=== PATIENT | male | born 1940 | race Caucasian/White ===

== ENCOUNTER → 2016-08-06 | Outpatient (CLI) | payer OTHER ==
[~2016-08-06] MED LIST: ASPIRIN CHEWABL81 MG PO; ATORVASTATIN CA10 M1 PO; CARVEDILOL6.25 MG PO; COUMADIN5 M2 PO; FUROSEMIDE80 MG PO; KLOR-CON M2020 ME1 PO; LASIX80 MG IV; LEVEMIR FLEX100 U/ML SC; METOLAZONE5 MG PO; MIRALAX17 GM PO; PACERONE100 MG PO; PERCOCET 325 MG1 TA2 PO; VITAMIN D-32000 UNIT PO; WARFARIN SOD5 MG PO
[2016-08-06 10:35] LABS: BILIRUBIN NEGATIVE (NEGATIVE); BLOOD NEGATIVE (NEGATIVE); CLARITY CLEAR (CLEAR); COLOR YELLOW (YELLOW); GLUCOSE 1+ (NEGATIVE); KETONE NEGATIVE (NEGATIVE); LEUKO ESTERASE NEGATIVE (NEGATIVE); NITRITE NEGATIVE (NEGATIVE); PH 6.5 (5.0-9.0); PROTEIN TRACE (NEGATIVE)
[2016-08-06 10:43] LABS: ALBUMIN 3.5 gm/dl (3.1-4.5); BILIRUBIN, DIRECT 0.3 mg/dL (0.0-0.2); BILIRUBIN, TOTAL 1.1 mg/dl (0.2-1.0); FREE T4 0.96 ng/dl (0.76-1.46); POTASSIUM 3.9 mmol/L (3.5-5.1); TOTAL PROTEIN 7.3 gm/dL (6.4-8.2)
[2016-08-06 10:48] LABS: THYROID STIM HORMONE (HS) 2.67 uIU/ml (0.358-4.75)
[2016-08-06 10:49] LABS: EPITHELIAL CELLS 0-2; HYALINE CAST 0-2; WBC 0-2 wbc/hpf (0-5)
[2016-08-06 11:24] LABS: HEMOGLOBIN A1c 7.8 % (4.8-5.6)
== END | disposition home or self-care (01) ==
LOC: LAB 09:49
PROVIDERS: Internal Medicine
DX: E11.65 Type 2 diabetes mellitus with hyperglycemia (principal); E11.42 Type 2 diabetes mellitus with diabetic polyneuropathy; E03.9 Hypothyroidism, unspecified; E78.5 Hyperlipidemia, unspecified; E55.9 Vitamin D deficiency, unspecified

== ENCOUNTER 2017-03-15 06:29 | Emergency (ER) | payer OTHER ==
[~2017-03-15] VITALS: Ht 165.1 cm; Wt 106.6 kg
== END 2017-03-15 08:07 | disposition home or self-care (01) ==
LOC: ED 06:29
DX: S93.502A Unspecified sprain of left great toe, initial encounter (principal); I25.10 Atherosclerotic heart disease of native coronary artery without angina pectoris; I48.91 Unspecified atrial fibrillation; I13.0 Hypertensive heart and chronic kidney disease with heart failure and stage 1 through stage 4 chronic kidney disease, or unspecified chronic kidney disease; E11.22 Type 2 diabetes mellitus with diabetic chronic kidney disease; N18.9 Chronic kidney disease, unspecified; Z79.4 Long term (current) use of insulin; Z79.02 Long term (current) use of antithrombotics/antiplatelets; Z79.899 Other long term (current) drug therapy; Z79.82 Long term (current) use of aspirin; X58.XXXA Exposure to other specified factors, initial encounter; Y93.89 Activity, other specified; Y92.89 Other specified places as the place of occurrence of the external cause; Y99.8 Other external cause status

== ENCOUNTER 2017-07-25 04:11 | Emergency (ER) | payer OTHER ==
[~2017-07-25] VITALS: Ht 167.6 cm; Wt 108.0 kg
[2017-07-25 04:46] LABS: BASO % 0.4 % (0.0-1.0); EOS # 0.3 10*3/uL (0.0-0.4); EOS % 3.3 % (1.0-4.0); HEMATOCRIT 37.3 % (42.0-52.0); HEMOGLOBIN 11.4 g/dl (14.0-18.0); LYMPH # 1.8 10*3/uL (1.3-4.4); LYMPH % 21.5 % (27.0-41.0); MEAN CELL VOLUME 83.1 fl (80.0-94.0); MEAN CORPUSCULAR HGB 25.4 pg (27.0-31.0); MEAN CORPUSCULAR HGB CONC 30.6 g/dl (33.0-37.0); MONO % 11.2 % (3.0-9.0); NEUT # 5.4 10*3/uL (2.3-7.9); NEUT % 63.5 % (47.0-73.0); PLATELET COUNT AUTOMATED 144 10*3/uL (130-400); RED BLOOD COUNT 4.49 10*6/uL (4.50-5.90); WHITE BLOOD COUNT 8.5 10*3/uL (4.8-10.8)
[2017-07-25 04:56] LABS: ACT PARTIAL THROMBO TIME 31.8 SECONDS (20.8-31.5); INTERNATIONAL NORM RATIO 2.2 (2.0-3.5)
[2017-07-25 04:58] LABS: CREATININE 1.64 mg/dL (0.70-1.30); POTASSIUM 3.6 mmol/L (3.5-5.1)
== END 2017-07-25 05:56 | disposition home or self-care (01) ==
LOC: ED 04:11
PROVIDERS: Emergency Medicine Emergency Medical Services
DX: K06.8 Other specified disorders of gingiva and edentulous alveolar ridge (principal); Z79.01 Long term (current) use of anticoagulants; Z95.1 Presence of aortocoronary bypass graft; Z79.899 Other long term (current) drug therapy; Z79.82 Long term (current) use of aspirin; Z79.4 Long term (current) use of insulin; Z91.041 Radiographic dye allergy status

== ENCOUNTER 2018-05-19 10:11 | Inpatient (IN) | payer OTHER ==
[2018-05-19] VITALS (7 sets, daily range): BP systolic 123–161; BP diastolic 54–91
[~2018-05-19] VITALS: Ht 165.1 cm; Wt 107.1 kg
--- NOTE | ~2018-05-19 | EKG ---
[place], [place] ELECTROCARDIOGRAM REPORT NAME: PARISH BECKETT UNIT #: [id number] ROOM: 526 DOCTOR: SIA DRAFT REPORT BIRTHDATE: [birth year] [facility] Test Date: 2018-05-19 Test Time: 10:13:29 Pat Name: PARISH BECKETT Department: Room: 526 Gender: M Ground Equipment Mechanic: Le Pollack : 1940 Requested By: PATRICIO VERGARA Order Number: [id number] Reading MD: Bonita Barrera MD Measurements Intervals [place] Rate: 87 P: [place]: QRS: 10 QRSD: 124 T: -80 QT: 385 QTc: 463 Interpretive Statements Atrial fibrillation Ventricular premature complex Aberrant conduction of SV complex(es) Left bundle branch block No previous ECG available for comparison Electronically Signed On 05-20-2018 12:13:57 PST by Bonita Barrera MD CM:EKGRPT:ELECTROCARDIOGRAM REPORT [id number] PATRICIO STOVALL DRAFT REPORT PATRICIO VERGARA M.D.
--- NOTE | ~2018-05-19 | EKG ---
[place], [place] ELECTROCARDIOGRAM REPORT NAME: PARISH BECKETT UNIT #: [id number] ROOM: 526 DOCTOR: SIA DRAFT REPORT BIRTHDATE: [birth year] [facility] Test Date: 2018-05-20 Test Time: 00:13:30 Pat Name: PARISH BECKETT Department: Room: 526 1 Gender: M Die Set Up Worker: Chanda Rascon : 1940 Requested By: JOSIE CHAWLA Order Number: [id number] Reading MD: Bonita Barrera MD Measurements Intervals [place] Rate: 79 P: [place]: QRS: 7 QRSD: 125 T: 265 QT: 464 QTc: 533 Interpretive Statements Afib/flut and V-paced complexes No further rhythm analysis attempted due to paced rhythm Left bundle branch block Baseline wander in lead(s) V2,V3 Electronically Signed On 05-20-2018 12:18:20 PST by Bonita Barrera MD CM:EKGRPT:ELECTROCARDIOGRAM REPORT 0013 1218 JOSIE HENRY DRAFT REPORT JOSIE CHAWLA DO
--- NOTE | ~2018-05-19 | EKG ---
[place], [place] ELECTROCARDIOGRAM REPORT NAME: PARISH BECKETT UNIT #: [id number] ROOM: 526 DOCTOR: SIA DRAFT REPORT BIRTHDATE: [birth year] [facility] Test Date: 2018-05-19 Test Time: 13:33:43 Pat Name: PARISH BECKETT Department: Room: 526 Gender: M Java Developer Architect: Le Pollack : 1940 Requested By: PATRICIO VERGARA Order Number: [id number] Reading MD: Bonita Barrera MD Measurements Intervals [place] Rate: 83 P: [place]: QRS: 21 QRSD: 126 T: 269 QT: 410 QTc: 482 Interpretive Statements Afib/flut and V-paced complexes No further rhythm analysis attempted due to paced rhythm Left bundle branch block No previous ECG available for comparison Electronically Signed On 05-20-2018 12:14:55 PST by Bonita Barrera MD CM:EKGRPT:ELECTROCARDIOGRAM REPORT 1333 1214 PATRICIO STOVALL DRAFT REPORT PATRICIO VERGARA M.D.
--- NOTE | ~2018-05-19 | EKG ---
[place], [place] ELECTROCARDIOGRAM REPORT NAME: PARISH BECKETT UNIT #: [id number] ROOM: 526 DOCTOR: SIA DRAFT REPORT BIRTHDATE: [birth year] [facility] Test Date: 2018-05-19 Test Time: 16:13:38 Pat Name: PARISH BECKETT Department: Room: 526 Gender: M Tile Layer Supervisor: Le Pollack : 1940 Requested By: PATRICIO VERGARA Order Number: [id number] Reading MD: Bonita Barrera MD Measurements Intervals [place] Rate: 82 P: [place]: QRS: 6 QRSD: 129 T: 247 QT: 419 QTc: 490 Interpretive Statements Afib/flut and V-paced complexes No further rhythm analysis attempted due to paced rhythm Left bundle branch block No previous ECG available for comparison Electronically Signed On 05-20-2018 12:16:00 PST by Bonita Barrera MD CM:EKGRPT:ELECTROCARDIOGRAM REPORT 1613 1216 PATRICIO STOVALL DRAFT REPORT PATRICIO VERGARA M.D.
--- NOTE | ~2018-05-19 | PR ---
[place], [place] PROGRESS NOTE NAME: PARISH BECKETT [facility] #: [id number] UNIT #: [id number] ROOM: 526 DOCTOR: ROSA DIAL MD BIRTHDATE: [birth year] DOS: 05/21/2018 CARDIOLOGY PROGRESS NOTE SUBJECTIVE: The patient was seen in the Cardiology Department today, 05/21/2018, prior to his stress test. He is an 78-year-old man who has a history of atherosclerotic heart disease with previous bypass surgery. He does have a history of permanent atrial fibrillation and has an ICD in place. He was brought to the hospital on 05/19/2018 with worsening shortness of breath over the last several weeks. He was noted to have significant peripheral edema and could not recall if he had taken his loop diuretic (Bumex) for some time. On admission, his troponin level was elevated at 0.772 and has continued to be mildly elevated since then. He has not had any typical rise and fall pattern to suggest an acute myocardial infarction and it was felt that his troponin elevation was due to atrial fibrillation, hypoxemia, respiratory failure and renal insufficiency. He is improving and it was felt that he should undergo a stress test today in order to assess his myocardial perfusion to determine if further assessment is needed. The patient is known to the [facility] clerk funeral detail and typically follows there for his cardiac care. Today, he has been n.p.o. and does seem to be a bit confused by today's events. He does admit to some shortness of breath, but denies any current chest pain. PHYSICAL EXAMINATION: VITAL SIGNS: His pulse is 73 and regular. Blood pressure was 118/68. He is afebrile. NECK: Supple. He has no jugular distention. LUNGS: Respirations are unlabored at rest. HEART: Has a regular rhythm without murmur or gallop. ABDOMEN: Obese, but otherwise benign. EXTREMITIES: Showed 2-3+ edema to the knees. A chest x-ray done 2 days ago showed the presence of his ICD in his left upper chest. There was no focal infiltrate, edema or effusion seen. An echocardiogram done 05/20/2018 showed normal left ventricular size with paradoxic septal motion consistent with postoperative state. There was mild concentric left ventricular hypertrophy with normal left ventricular systolic function. Diastole could not be assessed because of mitral valve surgery. The prosthetic mitral valve was well seated. There was no mitral insufficiency and mitral valve area was estimated at 3.2 cm2. Right ventricular systolic pressures were normal at 28 mmHg. IMPRESSIONS: 1. Acute on chronic heart failure, most likely diastolic in origin. 2. Dyspnea. 3. Elevation in cardiac troponin. 4. Chronic warfarin therapy. 5. Permanent atrial fibrillation. [place], [place] PROGRESS NOTE [id number] UNIT #: [id number] ROOM: 526 DOCTOR: ROSA DIAL MD BIRTHDATE: [birth year] 6. Permanent ICD pacemaker in place. 7. Possible medicine noncompliance with diuresis therapy. PLAN: We will proceed with a pharmacologic stress test today in order to determine if he has significant ischemia as a cause for his elevated troponin. At this point, however, the pattern of troponin and his clinical course is much more consistent with demand ischemia due to his heart failure, diastolic dysfunction, hypoxemia, etc. We will proceed with a pharmacologic stress test and continue attempts to diurese the patient. I thank the hospitalist physicians for asking our advice regarding his care. ROSA DIAL MD CM:PNTRANS [id number] ROSA DIAL MD 05/22/18 0611 interface
[2018-05-19 10:26] LABS: BASO % 0.6 % (0.0-1.0); EOS # 0.2 10*3/uL (0.0-0.4); HEMATOCRIT 36.2 % (42.0-52.0); HEMOGLOBIN 10.7 g/dl (14.0-18.0); LYMPH # 1.4 10*3/uL (1.3-4.4); LYMPH % 19.6 % (27.0-41.0); MEAN CELL VOLUME 88.3 fl (80.0-94.0); MEAN CORPUSCULAR HGB 26.1 pg (27.0-31.0); MEAN CORPUSCULAR HGB CONC 29.6 g/dl (33.0-37.0); MEAN PLATELET VOLUME 10.6 fl (9.6-12.3); MONO # 0.6 10*3/uL (0.1-1.0); MONO % 8.6 % (3.0-9.0); NEUT # 4.7 10*3/uL (2.3-7.9); NEUT % 67.8 % (47.0-73.0); PLATELET COUNT AUTOMATED 178 10*3/uL (130-400); RED CELL DISTRI WIDTH 18.4 % (0-14.5)
[2018-05-19 10:44] LABS: ALBUMIN 3.5 gm/dl (3.1-4.5); CREATININE 1.66 mg/dL (0.70-1.30); POTASSIUM 4.4 mmol/L (3.5-5.1); TOTAL PROTEIN 7.6 gm/dL (6.4-8.2)
[2018-05-19 10:56] LABS: TROPONIN I 0.772 ng/ml (<0.045)
[2018-05-19 11:08] LABS: ACT PARTIAL THROMBO TIME 35.1 SECONDS (20.8-31.5); INTERNATIONAL NORM RATIO 2.6 (2.0-3.5)
[2018-05-19] MEDS ORDERED: BUMETANIDE2 MG PO (18:40)
[2018-05-19] MEDS ORDERED: FOLBIC TABLET1 EACH PO (18:40)
[2018-05-19] MEDS ORDERED: AMARYL2 MG PO (18:41)
[2018-05-19] MEDS ORDERED: TYLENOL325 M2 PO (18:42)
[2018-05-19] MEDS ORDERED: NOVOLIN 70100 UNIT/1 SQ (18:42)
[2018-05-19] MEDS ORDERED: LEXAPRO10 MG PO (18:45)
[2018-05-19] MEDS ORDERED: ALLOPURINOL100 MG PO (18:46)
[2018-05-20] VITALS: BP 126/76
[2018-05-20 06:45] LABS: BASO % 0.6 % (0.0-1.0); EOS # 0.3 10*3/uL (0.0-0.4); EOS % 3.9 % (1.0-4.0); HEMATOCRIT 35.3 % (42.0-52.0); HEMOGLOBIN 10.2 g/dl (14.0-18.0); LYMPH # 1.2 10*3/uL (1.3-4.4); LYMPH % 16.1 % (27.0-41.0); MEAN CORPUSCULAR HGB 25.4 pg (27.0-31.0); MEAN CORPUSCULAR HGB CONC 28.9 g/dl (33.0-37.0); MEAN PLATELET VOLUME 10.7 fl (9.6-12.3); MONO # 0.8 10*3/uL (0.1-1.0); MONO % 10.3 % (3.0-9.0); NEUT % 68.7 % (47.0-73.0); PLATELET COUNT AUTOMATED 172 10*3/uL (130-400); RED BLOOD COUNT 4.01 10*6/uL (4.50-5.90); RED CELL DISTRI WIDTH 18.6 % (0-14.5); WHITE BLOOD COUNT 7.3 10*3/uL (4.8-10.8)
[2018-05-20 07:07] LABS: ALBUMIN 3.4 gm/dl (3.1-4.5); CREATININE 1.57 mg/dL (0.70-1.30); PHOSPHOROUS 2.5 mg/dL (2.5-4.9); POTASSIUM 4.1 mmol/L (3.5-5.1); TOTAL PROTEIN 7.3 gm/dL (6.4-8.2)
[2018-05-20 07:09] LABS: INTERNATIONAL NORM RATIO 2.2 (2.0-3.5)
[2018-05-20 07:13] LABS: FREE T4 0.85 ng/dl (0.76-1.46); THYROID STIM HORMONE (HS) 2.19 uIU/ml (0.358-4.75)
[2018-05-20 07:38] LABS: VITAMIN D, 25-HYDROXY 33.1 ng/mL (30-100)
[2018-05-20 08:00] VITALS: BP 117/57
[2018-05-20 11:00] VITALS: BP 123/55
[2018-05-20 16:00] VITALS: BP 105/58
[2018-05-20 20:00] VITALS: BP 118/64
[2018-05-21] VITALS: BP 115/65
[2018-05-21 06:29] LABS: BASO % 0.5 % (0.0-1.0); EOS # 0.3 10*3/uL (0.0-0.4); EOS % 4.9 % (1.0-4.0); HEMATOCRIT 34.5 % (42.0-52.0); HEMOGLOBIN 10.3 g/dl (14.0-18.0); LYMPH # 1.4 10*3/uL (1.3-4.4); LYMPH % 25.7 % (27.0-41.0); MEAN CELL VOLUME 88.2 fl (80.0-94.0); MEAN CORPUSCULAR HGB 26.3 pg (27.0-31.0); MEAN CORPUSCULAR HGB CONC 29.9 g/dl (33.0-37.0); MEAN PLATELET VOLUME 10.1 fl (9.6-12.3); MONO # 0.7 10*3/uL (0.1-1.0); MONO % 12.8 % (3.0-9.0); NEUT # 3.1 10*3/uL (2.3-7.9); NEUT % 55.7 % (47.0-73.0); PLATELET COUNT AUTOMATED 150 10*3/uL (130-400); RED BLOOD COUNT 3.91 10*6/uL (4.50-5.90); RED CELL DISTRI WIDTH 18.7 % (0-14.5); WHITE BLOOD COUNT 5.5 10*3/uL (4.8-10.8)
[2018-05-21 06:47] LABS: CREATININE 1.7 mg/dL (0.70-1.30); POTASSIUM 3.8 mmol/L (3.5-5.1)
[2018-05-21 07:30] VITALS: BP 118/68
[2018-05-21 07:36] LABS: INTERNATIONAL NORM RATIO 2.2 (2.0-3.5)
[2018-05-21 08:25] VITALS: BP 112/58
[2018-05-21 12:04] VITALS: BP 118/68
[2018-05-21 16:00] VITALS: BP 111/64
[2018-05-21 20:00] VITALS: BP 97/53
[2018-05-22] VITALS: BP 93/54
[2018-05-22 06:46] LABS: BASO % 0.4 % (0.0-1.0); EOS # 0.3 10*3/uL (0.0-0.4); EOS % 4.1 % (1.0-4.0); HEMATOCRIT 34.9 % (42.0-52.0); HEMOGLOBIN 10.3 g/dl (14.0-18.0); LYMPH # 1.5 10*3/uL (1.3-4.4); LYMPH % 20.9 % (27.0-41.0); MEAN CELL VOLUME 87.7 fl (80.0-94.0); MEAN CORPUSCULAR HGB 25.9 pg (27.0-31.0); MEAN CORPUSCULAR HGB CONC 29.5 g/dl (33.0-37.0); MEAN PLATELET VOLUME 10.3 fl (9.6-12.3); MONO # 0.9 10*3/uL (0.1-1.0); MONO % 11.9 % (3.0-9.0); NEUT # 4.6 10*3/uL (2.3-7.9); NEUT % 62.4 % (47.0-73.0); PLATELET COUNT AUTOMATED 156 10*3/uL (130-400); RED BLOOD COUNT 3.98 10*6/uL (4.50-5.90); RED CELL DISTRI WIDTH 18.6 % (0-14.5); WHITE BLOOD COUNT 7.3 10*3/uL (4.8-10.8)
[2018-05-22 07:00] LABS: INTERNATIONAL NORM RATIO 2.3 (2.0-3.5)
[2018-05-22 07:11] LABS: CREATININE 1.59 mg/dL (0.70-1.30); POTASSIUM 3.7 mmol/L (3.5-5.1)
[2018-05-22 08:00] VITALS: BP 90/50
[2018-05-22 12:00] VITALS: BP 119/56
[2018-05-22 16:00] VITALS: BP 116/58
[2018-05-22] MEDS ORDERED: IMDUR SA30 MG PO (17:07)
[2018-05-22] MEDS ORDERED: APRESOLINE10 MG PO (17:07)
[2018-06-05] MEDS ORDERED: APRESOLINE10 MG PO (11:28)
[2018-06-07] MEDS ORDERED: NOVOLIN 70100 UNIT/1 SQ (10:16)
[2018-06-07] MEDS ORDERED: VITAMIN D-32000 UNI1 PO (10:16)
[2018-06-07] MEDS ORDERED: COREG12.5 M1 PO (10:16)
[2018-06-07] MEDS ORDERED: KLOR-CON M2020 ME1 PO (10:16)
[2018-06-07] MEDS ORDERED: APRESOLINE10 MG PO (10:16)
[2018-06-07] MEDS ORDERED: ATORVASTATIN CA10 M1 PO (10:16)
[2018-06-07] MEDS ORDERED: COUMADIN5 M2 PO (10:16)
[2018-06-07] MEDS ORDERED: IMDUR SA60 M1 PO (10:16)
[2018-06-07] MEDS ORDERED: BUMETANIDE2 MG PO (10:16)
== END 2018-05-22 18:03 | disposition home or self-care (01) | DRG 291 ==
LOC: ED 10:11 → 5E 16:19 → EDHOLD 16:19 → 5E 18:05
PROVIDERS: Emergency Medicine; Internal Medicine; Internal Medicine Nephrology; ADMIT Internal Medicine
DX: I13.0 Hypertensive heart and chronic kidney disease with heart failure and stage 1 through stage 4 chronic kidney disease, or unspecified chronic kidney disease (principal); I50.43 Acute on chronic combined systolic (congestive) and diastolic (congestive) heart failure; D68.69 Other thrombophilia; I47.2 Ventricular tachycardia; I24.8 Other forms of acute ischemic heart disease; Z68.41 Body mass index [BMI] 40.0-44.9, adult; E11.22 Type 2 diabetes mellitus with diabetic chronic kidney disease; E83.41 Hypermagnesemia; E80.6 Other disorders of bilirubin metabolism; D64.9 Anemia, unspecified; I25.10 Atherosclerotic heart disease of native coronary artery without angina pectoris; E11.65 Type 2 diabetes mellitus with hyperglycemia; I48.2 Chronic atrial fibrillation; N18.3 Chronic kidney disease, stage 3 (moderate); E66.9 Obesity, unspecified; Z79.4 Long term (current) use of insulin; Z95.1 Presence of aortocoronary bypass graft; Z91.041 Radiographic dye allergy status; Z79.899 Other long term (current) drug therapy; Z95.810 Presence of automatic (implantable) cardiac defibrillator; I25.2 Old myocardial infarction; Z79.82 Long term (current) use of aspirin; Z79.01 Long term (current) use of anticoagulants; Z95.2 Presence of prosthetic heart valve; Z91.14 Patient's other noncompliance with medication regimen; K21.9 Gastro-esophageal reflux disease without esophagitis

== ENCOUNTER → 2018-06-10 | Outpatient (CLI) | payer OTHER ==
[~2018-06-10] MED LIST changes: +ALLOPURINOL100 MG PO; +AMARYL2 MG PO; +APRESOLINE10 MG PO; +BUMETANIDE2 MG PO; +COREG12.5 M1 PO; +ELIQUIS2.5 M1 PO; +FOLBIC RF TABL1 EACH PO; +FOLBIC TABLET1 EACH PO; +IMDUR SA30 MG PO; +IMDUR SA60 M1 PO; +LEXAPRO10 MG PO; +NOVOLIN 70100 UNIT/1 SQ; +TYLENOL325 M2 PO; +VITAMIN D-32000 UNI1 PO
[2018-06-10 09:09] LABS: BASO % 0.3 % (0.0-1.0); EOS # 0.2 10*3/uL (0.0-0.4); EOS % 2.5 % (1.0-4.0); HEMATOCRIT 36.6 % (42.0-52.0); HEMOGLOBIN 10.7 g/dl (14.0-18.0); LYMPH # 1.4 10*3/uL (1.3-4.4); LYMPH % 20.6 % (27.0-41.0); MEAN CELL VOLUME 87.8 fl (80.0-94.0); MEAN CORPUSCULAR HGB 25.7 pg (27.0-31.0); MEAN CORPUSCULAR HGB CONC 29.2 g/dl (33.0-37.0); MEAN PLATELET VOLUME 10.3 fl (9.6-12.3); MONO # 0.9 10*3/uL (0.1-1.0); MONO % 12.9 % (3.0-9.0); NEUT # 4.3 10*3/uL (2.3-7.9); NEUT % 63.6 % (47.0-73.0); PLATELET COUNT AUTOMATED 130 10*3/uL (130-400); RED BLOOD COUNT 4.17 10*6/uL (4.50-5.90); RED CELL DISTRI WIDTH 17.7 % (0-14.5); WHITE BLOOD COUNT 6.7 10*3/uL (4.8-10.8)
[2018-06-10 09:18] LABS: INTERNATIONAL NORM RATIO 1.1 (2.0-3.5)
== END | disposition home or self-care (01) ==
LOC: LAB 08:49
PROVIDERS: Internal Medicine
DX: I50.43 Acute on chronic combined systolic (congestive) and diastolic (congestive) heart failure (principal); R79.1 Abnormal coagulation profile

== ENCOUNTER 2018-08-20 14:12 | Emergency (ER) | payer MEDICARE ==
[~2018-08-20] VITALS: Ht 167.6 cm; Wt 104.3 kg
[~2018-08-20 14:12] MED LIST changes: -ELIQUIS2.5 M1 PO; -FOLBIC RF TABL1 EACH PO
[2018-08-28] MEDS ORDERED: AMARYL2 MG PO (16:06)
[2018-08-28] MEDS ORDERED: ELIQUIS2.5 M1 PO (16:07)
[2018-08-28] MEDS ORDERED: APRESOLINE10 MG PO (16:07)
[2018-08-28] MEDS ORDERED: FOLBIC RF TABL1 EACH PO (16:08)
== END 2018-08-20 15:19 | disposition left against medical advice (07) ==
LOC: ED 14:12
DX: M54.6 Pain in thoracic spine (principal); Z91.041 Radiographic dye allergy status; Z79.899 Other long term (current) drug therapy; Z79.01 Long term (current) use of anticoagulants; Z79.82 Long term (current) use of aspirin; Z95.1 Presence of aortocoronary bypass graft; Z87.891 Personal history of nicotine dependence; W18.43XA Slipping, tripping and stumbling without falling due to stepping from one level to another, initial encounter; Y93.89 Activity, other specified; Y92.89 Other specified places as the place of occurrence of the external cause; Y99.8 Other external cause status

== ENCOUNTER 2018-10-03 13:25 | Inpatient (IN) | payer MEDICARE ==
[~2018-10-03] VITALS: Ht 167.6 cm; Wt 102.5 kg
--- NOTE | ~2018-10-03 | EKG ---
[place], [place] ELECTROCARDIOGRAM REPORT NAME: PARISH BECKETT UNIT #: [id number] ROOM: 515 DOCTOR: SIA DRAFT REPORT BIRTHDATE: [birth year] [facility] Test Date: 2018-10-03 Test Time: 13:57:25 Pat Name: PARISH BECKETT Department: Room: [facility] Gender: M Dining Room Host/Hostess: ZOE : 1940 Requested By: BRIONNA DAVIS Order Number: [id number] Reading MD: Fermin Zimmerman MD Measurements Intervals [place] Rate: 70 P: 0 PA: 59 QRS: -80 QRSD: 192 T: 93 QT: 483 QTc: 522 Interpretive Statements Ventricular-paced rhythm No further analysis attempted due to paced rhythm Compared to ECG 08/22/2018 09:41:58 No significant changes Electronically Signed On 10-06-2018 8:09:35 PDT by Fermin Zimmerman MD CM:EKGRPT:ELECTROCARDIOGRAM REPORT [id number] 0809 BRIONNA STOVALL DRAFT REPORT BRIONNA DAVIS MD
[~2018-10-03 13:25] MED LIST changes: +ELIQUIS2.5 M1 PO; +FOLBIC RF TABL1 EACH PO
[2018-10-03 13:26] VITALS: BP 134/69
[2018-10-03 14:33] LABS: BASO % 0.5 % (0.0-1.0); EOS # 0.2 10*3/uL (0.0-0.4); EOS % 3.2 % (1.0-4.0); HEMATOCRIT 36.7 % (42.0-52.0); HEMOGLOBIN 10.7 g/dl (14.0-18.0); LYMPH # 1.7 10*3/uL (1.3-4.4); LYMPH % 25.4 % (27.0-41.0); MEAN CELL VOLUME 83.2 fl (80.0-94.0); MEAN CORPUSCULAR HGB 24.3 pg (27.0-31.0); MEAN CORPUSCULAR HGB CONC 29.2 g/dl (33.0-37.0); MEAN PLATELET VOLUME 10.7 fl (9.6-12.3); MONO # 0.7 10*3/uL (0.1-1.0); MONO % 10.3 % (3.0-9.0); NEUT % 60.3 % (47.0-73.0); PLATELET COUNT AUTOMATED 127 10*3/uL (130-400); RED BLOOD COUNT 4.41 10*6/uL (4.50-5.90); RED CELL DISTRI WIDTH 18.6 % (0-14.5); WHITE BLOOD COUNT 6.6 10*3/uL (4.8-10.8)
[2018-10-03 14:45] LABS: ACT PARTIAL THROMBO TIME 27.2 SECONDS (20.0-32.1)
[2018-10-03 14:48] LABS: BILIRUBIN NEGATIVE (NEGATIVE); BLOOD NEGATIVE (NEGATIVE); CLARITY CLEAR (CLEAR); COLOR YELLOW (YELLOW); GLUCOSE 3+ (NEGATIVE); KETONE NEGATIVE (NEGATIVE); LEUKO ESTERASE NEGATIVE (NEGATIVE); NITRITE NEGATIVE (NEGATIVE); PH 6.5 (5.0-9.0); SPECIFIC GRAVITY <= 1.005 (1.005-1.030)
[2018-10-03 14:51] LABS: ALBUMIN 3.5 gm/dl (3.1-4.5); CREATININE 1.89 mg/dL (0.70-1.30); POTASSIUM 3.5 mmol/L (3.5-5.1); TOTAL PROTEIN 7.5 gm/dL (6.4-8.2)
[2018-10-03 14:59] LABS: TROPONIN I 0.397 ng/ml (<0.045)
[2018-10-03 15:05] VITALS: BP 143/79
[2018-10-03 15:10] LABS: EPITHELIAL CELLS 0-2; RBC 0-2 rbc/hpf (0-2)
[2018-10-03 15:54] VITALS: BP 138/82
== END 2018-10-03 17:25 | disposition home or self-care (01) | DRG 638 ==
LOC: ED 13:25 → EDHOLD 15:21 → 5E 15:27
PROVIDERS: Emergency Medicine; ADMIT Internal Medicine
DX: E11.65 Type 2 diabetes mellitus with hyperglycemia (principal); D68.69 Other thrombophilia; I13.0 Hypertensive heart and chronic kidney disease with heart failure and stage 1 through stage 4 chronic kidney disease, or unspecified chronic kidney disease; I50.40 Unspecified combined systolic (congestive) and diastolic (congestive) heart failure; E83.41 Hypermagnesemia; R74.8 Abnormal levels of other serum enzymes; E11.22 Type 2 diabetes mellitus with diabetic chronic kidney disease; N18.3 Chronic kidney disease, stage 3 (moderate); I48.2 Chronic atrial fibrillation; E66.9 Obesity, unspecified; I25.10 Atherosclerotic heart disease of native coronary artery without angina pectoris; Z95.810 Presence of automatic (implantable) cardiac defibrillator; Z79.4 Long term (current) use of insulin; Z79.01 Long term (current) use of anticoagulants; Z91.041 Radiographic dye allergy status; Z91.81 History of falling; I25.2 Old myocardial infarction; Z95.2 Presence of prosthetic heart valve; Z87.442 Personal history of urinary calculi; Z87.891 Personal history of nicotine dependence; Z95.1 Presence of aortocoronary bypass graft; Z84.89 Family history of other specified conditions; Z81.1 Family history of alcohol abuse and dependence; Z79.84 Long term (current) use of oral hypoglycemic drugs; Z68.36 Body mass index [BMI] 36.0-36.9, adult

== ENCOUNTER 2018-11-09 16:27 | Inpatient (IN) | payer MEDICARE ==
[~2018-11-09] VITALS: Ht 165.1 cm; Wt 103.9 kg
--- NOTE | ~2018-11-09 | EKG ---
[place], [place] ELECTROCARDIOGRAM REPORT NAME: PARISH BECKETT UNIT #: [id number] ROOM: 508 DOCTOR: SIA DRAFT REPORT BIRTHDATE: [birth year] [facility] Test Date: 2018-11-09 Test Time: 20:36:38 Pat Name: PARISH BECKETT Department: Room: 508 1 Gender: M Bone Plant Supervisor: : 1940 Requested By: SERINA FLEMING Order Number: [id number] Reading MD: Measurements Intervals [place] Rate: 99 P: 72 [place]: 167 QRS: 37 QRSD: 66 T: 41 QT: 348 QTc: 447 Interpretive Statements Sinus rhythm Baseline wander in lead(s) II Compared to ECG 10/03/2018 13:57:25 Ventricular-paced complex(es) or rhythm no longer present CM:EKGRPT:ELECTROCARDIOGRAM REPORT [id number] SERINA HENRY DRAFT REPORT SERINA FLEMING DO
--- NOTE | ~2018-11-09 | EKG ---
[place], [place] ELECTROCARDIOGRAM REPORT NAME: PARISH BECKETT UNIT #: [id number] ROOM: [facility] DOCTOR: SIA DRAFT REPORT BIRTHDATE: [birth year] [facility] Test Date: 2018-11-09 Test Time: 22:54:37 Pat Name: PARISH BECKETT Department: Room: [facility] Gender: M Licensed Occupational Therapist: Chanda Rascon : 1940 Requested By: SERINA FLEMING Order Number: [id number] Reading MD: Bonita Barrera MD Measurements Intervals [place] Rate: 70 P: 0 [place]: 62 QRS: -71 QRSD: 183 T: 82 QT: 501 QTc: 541 Interpretive Statements Atrial fibrillation, Ventricular-paced complexes No further analysis attempted due to paced rhythm Baseline wander in lead(s) V4 Compared to ECG 10/03/2018 13:57:25 No significant changes Electronically Signed On 11-10-2018 14:31:57 PDT by Bonita Barrera MD CM:EKGRPT:ELECTROCARDIOGRAM REPORT [id number] 1431 SERINA HENRY DRAFT REPORT
--- NOTE | ~2018-11-09 | EKG ---
[place], [place] ELECTROCARDIOGRAM REPORT NAME: PARISH BECKETT UNIT #: [id number] ROOM: [facility] DOCTOR: EPIPHANY DRAFT REPORT BIRTHDATE: [birth year] [facility] Test Date: 2018-11-09 Test Time: 16:43:34 Pat Name: PARISH BECKETT Department: Room: [facility] Gender: M Chairman Emeritus: : 1940 Requested By: GUSTAVO SCHWARTZ DNP Order Number: [id number] Reading MD: Bonita Barrera MD Measurements Intervals [place] Rate: 72 P: 0 NE: 55 QRS: 7 QRSD: 138 T: 254 QT: 409 QTc: 448 Interpretive Statements Ventricular-paced complexes No further analysis attempted due to paced rhythm Baseline wander in lead(s) V4,V6 Compared to ECG 10/03/2018 13:57:25 No significant changes Electronically Signed On 11-10-2018 14:29:27 PDT by Bonita Barrera MD CM:EKGRPT:ELECTROCARDIOGRAM REPORT 1643 1429 GUSTAVO SCHWARTZ DNP EPIPHANY DRAFT REPORT GUSTAVO SCHWARTZ DNP
--- NOTE | ~2018-11-09 | EKG ---
[place], [place] ELECTROCARDIOGRAM REPORT NAME: PARISH BECKETT UNIT #: [id number] ROOM: [facility] DOCTOR: SIA DRAFT REPORT BIRTHDATE: [birth year] [facility] Test Date: 2018-11-09 Test Time: 20:14:55 Pat Name: PARISH BECKETT Department: Room: [facility] Gender: M Escalator Constructor: Chanda Rascon : 1940 Requested By: SERINA FLEMING Order Number: [id number] Reading MD: Bonita Barrera MD Measurements Intervals [place] Rate: 75 P: [place]: QRS: 76 QRSD: 141 T: -85 QT: 540 QTc: 604 Interpretive Statements Afib/flut and V-paced complexes No further analysis attempted due to paced rhythm Baseline wander in lead(s) V1 Compared to ECG 10/03/2018 13:57:25 No significant changes Electronically Signed On 11-10-2018 14:29:59 PDT by Bonita Barrera MD CM:EKGRPT:ELECTROCARDIOGRAM REPORT 13 1429 SERINA HENRY DRAFT REPORT SERINA FLEMING DO
[2018-11-09 16:28] VITALS: BP 130/75
[2018-11-09 16:55] LABS: BASO % 0.1 % (0.0-1.0); HEMATOCRIT 35.5 % (42.0-52.0); HEMOGLOBIN 10.9 g/dl (14.0-18.0); LYMPH # 0.9 10*3/uL (1.3-4.4); LYMPH % 11.2 % (27.0-41.0); MEAN CORPUSCULAR HGB 25.2 pg (27.0-31.0); MEAN CORPUSCULAR HGB CONC 30.7 g/dl (33.0-37.0); MEAN PLATELET VOLUME 10.3 fl (9.6-12.3); MONO # 1.1 10*3/uL (0.1-1.0); MONO % 13.6 % (3.0-9.0); NEUT % 74.6 % (47.0-73.0); PLATELET COUNT AUTOMATED 108 10*3/uL (130-400); RED BLOOD COUNT 4.33 10*6/uL (4.50-5.90); RED CELL DISTRI WIDTH 18.3 % (0-14.5)
--- NOTE | 2018-11-09 16:58 | NUR ---
PT'S DAUGHTER CALLED FOR UPDATE ON PT. DAUGHTER STATES SHE CALLED PT TODAY AND PT TOLD HER HE FELL TWICE AND DID NOT FEEL WELL SO SHE CALLED AN AMBULANCE.
[2018-11-09 17:05] LABS: ACT PARTIAL THROMBO TIME 30.9 SECONDS (20.0-32.1); INTERNATIONAL NORM RATIO 1.1 (2.0-3.5)
[2018-11-09 17:07] LABS: BILIRUBIN NEGATIVE (NEGATIVE); BLOOD 3+ (NEGATIVE); CLARITY CLEAR (CLEAR); COLOR YELLOW (YELLOW); GLUCOSE 2+ (NEGATIVE); KETONE NEGATIVE (NEGATIVE); LEUKO ESTERASE NEGATIVE (NEGATIVE); NITRITE NEGATIVE (NEGATIVE)
[2018-11-09 17:14] LABS: ALBUMIN 3.1 gm/dl (3.1-4.5); CREATININE 1.98 mg/dL (0.70-1.30); POTASSIUM 3.2 mmol/L (3.5-5.1); TOTAL PROTEIN 7.3 gm/dL (6.4-8.2)
[2018-11-09 17:19] LABS: BACTERIA 1+; WBC 0-2 wbc/hpf (0-5)
[2018-11-09 17:23] LABS: TROPONIN I 1.11 ng/ml (<0.045)
--- NOTE | 2018-11-09 17:23 | NUR ---
DR GUSTAVO SCHWARTZ AWARE OF CRITICAL TROPONIN OF 1.11.
[2018-11-09 17:30] VITALS: BP 139/76
[2018-11-09 18:29] VITALS: BP 115/57
--- NOTE | 2018-11-09 18:29 | NUR ---
SON CALLED FOR UPDATE ON PT, SON IS OUT OF TOWN IN [place] AT THIS TIME.
--- NOTE | 2018-11-09 18:35 | NUR ---
DAUGHTER CALLED FROM [place] FOR UPDATE ON PATIENT.
--- NOTE | 2018-11-09 18:40 | NUR ---
A 78, admitted to 5E, under the services of ELLY Mcduffie DO with a diagnosis of MULTIPLE COMPLAINTS. Chief complaint is RECENT FALLS. Patient arrived via bed from ER. Monitor applied. Initial assessment completed. Vital signs taken and recorded. ELLY MCDUFFIE DO notified of admission to the unit. Orders received. See assessment for past medical history, medications and allergies. Patient oriented to unit. Clothing/patient valuable form completed. CRISTOPHER CRUZ
--- NOTE | 2018-11-09 19:49 | NUR ---
DR. FLEMING NOTIFIED OF PT'S MED REC UTD AND NEEDING A DIET ORDER.
[2018-11-09 20:00] VITALS: BP 108/64
--- NOTE | 2018-11-09 20:11 | NUR ---
MESSAGE LEFT W/ANSWERING SERVICE RE NEW CONSULT.
--- NOTE | 2018-11-09 21:09 | NUR ---
DR. FLEMING NOTIFIED OF PT'S 2ND TROPONIN OF 1.150 AND 2ND EKG NSR. PT ASYMPTOMATIC. NO NEW ORDERS AT THIS TIME.
--- NOTE | 2018-11-09 21:16 | NUR ---
MSG LEFT W/CARDIOLOGY ANSWERING SERVICE FOR RETURN CALL RE ELEVATED TROPONINS.
--- NOTE | 2018-11-09 21:19 | NUR ---
DR. RON RETURNED CALL AND NOTIFIED OF NEW CONSULT FOR ELEVATED TROPONINS. EKG, LABS, AND PT STATUS REVIEWED W/DR. NO NEW ORDERS RECEIVED AT THIS TIME.
--- NOTE | 2018-11-09 23:00 | NUR ---
PT LETHARGIC, DIFFICULT TO AROUSE, SKIN COOL/CLAMMY. HR 70 BP 92/50 T 97.4 ORALLY BGM 285. ORIENTED TO PERSON/PLACE, NOT TO TIME. WILL CONTINUE TO MONITOR.
--- NOTE | 2018-11-09 23:15 | NUR ---
DR. RON NOTIFIED OF PT'S CHANGE IN CONDITION. ORDERS GIVEN TO TX PT TO ICU AND ADMINISTER LASIX 20MG IVP X1 NOW.
[2018-11-09 23:30] VITALS: BP 92/50
--- NOTE | 2018-11-09 23:45 | NUR ---
PT TRANSFERRED TO ICU. REPORT GIVEN TO ANISHA ENG AT BEDSIDE. ALL BELONGINGS SENT W/PT.
[2018-11-10] VITALS: BP 107/63
--- NOTE | 2018-11-10 00:08 | NUR ---
RECEIVED PATIENT FROM 5E. PATIENT AWAKE AND ALERT UPON ARRIVAL. PLACED IN ICCU 5. NO S/S OF DISTRESS. RECEIVED REPORT FROM GAYE MURRIETA RN AT BEDSIDE. VITALS STABLE. PLACED ON POWER AND RECOVERY SHIFT ENGINEER. PACED 100% CAPTURE. AFEBRILE. PATIENT PLACED ON 2LNC. ASSESSMENT COMPLETED. CALL LIGHT PLACED WITHIN REACH. ORIENTED TO ROOM.
--- NOTE | 2018-11-10 00:56 | NUR ---
PATIENT RESTING COMFORTABLY IN HIS BED. DENIES DISCOMFORT. NO S/S OF DISTRESS. CALL LIGHT IN REACH.
[2018-11-10 03:54] VITALS: BP 114/60
--- NOTE | 2018-11-10 03:56 | NUR ---
CHANGED BED SHEETS/BLANKETS/GOWN.
[2018-11-10 05:53] LABS: CREATININE 2.11 mg/dL (0.70-1.30); PHOSPHOROUS 3.8 mg/dL (2.5-4.9); POTASSIUM 3.4 mmol/L (3.5-5.1)
[2018-11-10 06:00] LABS: FREE T4 0.9 ng/dl (0.76-1.46); THYROID STIM HORMONE (HS) 1.67 uIU/ml (0.358-4.75); TOTAL PROTEIN 6.9 gm/dL (6.4-8.2)
[2018-11-10 06:12] LABS: EOS % 0.5 % (1.0-4.0); HEMATOCRIT 36.1 % (42.0-52.0); HEMOGLOBIN 10.8 g/dl (14.0-18.0); LYMPH # 0.6 10*3/uL (1.3-4.4); LYMPH % 10.5 % (27.0-41.0); MEAN CORPUSCULAR HGB 25.1 pg (27.0-31.0); MEAN CORPUSCULAR HGB CONC 29.9 g/dl (33.0-37.0); MEAN PLATELET VOLUME 11.7 fl (9.6-12.3); MONO # 0.7 10*3/uL (0.1-1.0); MONO % 12.1 % (3.0-9.0); NEUT # 4.3 10*3/uL (2.3-7.9); NEUT % 76.5 % (47.0-73.0); PLATELET COUNT AUTOMATED 98 10*3/uL (130-400); RED CELL DISTRI WIDTH 18.6 % (0-14.5); WHITE BLOOD COUNT 5.6 10*3/uL (4.8-10.8)
[2018-11-10 06:37] LABS: ACT PARTIAL THROMBO TIME 33.7 SECONDS (20.0-32.1); INTERNATIONAL NORM RATIO 1.1 (2.0-3.5)
[2018-11-10 07:06] LABS: VITAMIN D, 25-HYDROXY 24.1 ng/mL (30-100)
--- NOTE | 2018-11-10 07:19 | NUR ---
24 HR chart check completed.
[2018-11-10 08:00] VITALS: BP 107/62
--- NOTE | 2018-11-10 09:00 | NUR ---
Potato Grader in to talk to patient. Patient states lives at home alone with his daughter living in [place] calling to check in on him. He has a son that lives near who also calls to check on him. There are 0 steps in the home. Physician: Dr. Praneeth Nunn Pharmacy: [facility] Home health services: none Patient's level of ADLs: INDEPENDENT Patient has working utilities: yes DME: none Follow-up physician's appointment after d/c: will be made by the hospitalist nurse director upon discharge Does patient want to access PORTAL?: no Discharge plan discussed with patient. He lives at home alone with his family calling in to check in on him. He is independent in his ADLs and ambulation. He drives. Discussed home health care services and he denies any home needs at this time. When medically stable he will be discharged to home. He is unsure of how he will get home at this time upon discharge. LUZMARIA MCCAIN
[2018-11-10 12:00] VITALS: BP 92/47
--- NOTE | 2018-11-10 15:59 | NUR ---
Nursing screen and occupational therapy referral received. Thank you. Diamond Luke OTr/L
[2018-11-10 16:00] VITALS: BP 91/49
--- NOTE | 2018-11-10 16:01 | NUR ---
PHYSICAL THERAPY Nursing screen received and chart reviewed. Physical therapy referral received. Thank you. Ana Cristina Ferreira,PT,DPT.
--- NOTE | 2018-11-10 19:13 | NUR ---
CHART CHECK COMPLETE.
[2018-11-10 20:00] VITALS: BP 97/57
--- NOTE | 2018-11-10 20:26 | NUR ---
MALE VISITOR AT BEDSIDE.
--- NOTE | 2018-11-10 23:40 | NUR ---
PT ALERT AND ORIENTED X 3 PRESENTLY. REMAINS IN CHAIR WITH CALL LIGHT IN HIS HAND.
[2018-11-11] VITALS: BP 111/52
[2018-11-11 04:00] VITALS: BP 99/45
--- NOTE | 2018-11-11 04:58 | NUR ---
BACK TO BED BY SELF. BED EXIT ALARM ON. PT HAD A PERIOD OF DISORIENTATION BUT CLEARED FAIRLY EASY.
[2018-11-11 05:20] LABS: CREATININE 1.77 mg/dL (0.70-1.30); POTASSIUM 3.5 mmol/L (3.5-5.1)
[2018-11-11 06:02] LABS: BASO % 0.2 % (0.0-1.0); EOS # 0.1 10*3/uL (0.0-0.4); EOS % 1.6 % (1.0-4.0); HEMATOCRIT 32.5 % (42.0-52.0); LYMPH # 0.9 10*3/uL (1.3-4.4); LYMPH % 15.5 % (27.0-41.0); MEAN CELL VOLUME 81.5 fl (80.0-94.0); MEAN CORPUSCULAR HGB 25.1 pg (27.0-31.0); MEAN CORPUSCULAR HGB CONC 30.8 g/dl (33.0-37.0); MEAN PLATELET VOLUME 11.6 fl (9.6-12.3); MONO # 0.6 10*3/uL (0.1-1.0); MONO % 11.1 % (3.0-9.0); NEUT # 4.1 10*3/uL (2.3-7.9); NEUT % 71.1 % (47.0-73.0); PLATELET COUNT AUTOMATED 98 10*3/uL (130-400); RED BLOOD COUNT 3.99 10*6/uL (4.50-5.90); RED CELL DISTRI WIDTH 18.2 % (0-14.5); WHITE BLOOD COUNT 5.8 10*3/uL (4.8-10.8)
--- NOTE | 2018-11-11 06:05 | NUR ---
BACK UP TO CHAIR. DOZING NOW.
[2018-11-11 08:00] VITALS: BP 128/66
--- NOTE | 2018-11-11 08:30 | NUR ---
SITTING UP IN CHAIR AT BEDSIDE. NO COMPLAINTS VOICED. CONFUSED TO YEAR. LUNGS CLEAR BILATERALLY. PULSE OX 95% ON ROOM AIR. 1+ EDEMA NOTED TO BILATERAL LOWER EXTREMITIES. USING URINAL
--- NOTE | 2018-11-11 10:59 | NUR ---
Occupational Therapy evaluation completed in ICCU with full eval to follow. Patient admitted to ICCU with elevated troponin and dyspnea with hyperglycemia. He has had frequent falls with LE edema and weakness. Precautions include fall risk, h/o falls,no device for mobility,LE edema,unsteady in standing, ICCU precautions, IV UE, moderate complexity level 16238 via chart review, testing and evaluation. Recommend OT per POC and SNF to enable return home at independent level. Thank you. Herlinda Luke OTR/L
--- NOTE | 2018-11-11 10:59 | NUR ---
PHYSICAL THERAPY Physical therapy evaluation complete, ICCU. Full evaluation/details to follow. Moderate complexity evaluation (83765) per chart review and evaluation. Patient presents with unsteady gait and decreased endurance. Continue per POC. Recommend SNF at discharge. Thank you. Ana Cristina Ferreira,PT,DPT.
--- NOTE | 2018-11-11 11:45 | NUR ---
REPORT GIVEN TO ARLENE LANCASTER. TRANSFERRED TO ROOM 509 VIA CHAIR.
[2018-11-11 12:00] VITALS: BP 114/64; BP 118/60
--- NOTE | 2018-11-11 12:50 | NUR ---
In to see patient with ALLAN Wilson. Discussed with patient about going to short term skilled. Stated his daughter that lives in [place] was recommending him to go. He stated, "well, if she recommends it then I will go for a little while". Patient said he lives in [place] and would be willing to go to [facility] for 7 days. Will make referral.
--- NOTE | 2018-11-11 13:00 | NUR ---
PT ARRIVED TO FLOOR VIA CHAIR. NO DISTRESS NOTED. NO VOICED C/O. WILL MONITOR
--- NOTE | 2018-11-11 13:40 | NUR ---
OT NOTE Attempted to see pt this P.M. for OT session and upon arrival pt was sitting upright in the recliner eating lunch. Will check back at a later time/date and continue with POC as indicated. MAGGY Wells/Michael
--- NOTE | 2018-11-11 14:40 | NUR ---
Faxed referral to [facility]. -CORY Vera
--- NOTE | 2018-11-11 15:00 | NUR ---
PT INSISTING THAT HE IS GOING HOME , DEMANDING TO HAVE HIS WALLET AND IV SITE REMOVED DR WAKEFIELD CALLED AND NOTIFIED DR WAKEFIELD UP TO SPEAK TO PT
--- NOTE | 2018-11-11 16:04 | NUR ---
PT SIGNED OUT AMA. DR WAKEFIELD AND NUSRAT ALAS NURSING MARINE ELECTRONICS TECHNICIAN NOTIFIED
--- NOTE | 2018-11-12 13:28 | NUR ---
OCCUPATIONAL THERAPY CO-SIGN I approve of the Occupational Therapy notes written above. JOEY DE JESUS OTR/Michael
== END 2018-11-11 16:04 | disposition left against medical advice (07) | DRG 871 ==
LOC: ED 16:27 → ICCU 18:17 → 5E 18:17 → EDHOLD 18:17 → 5E 18:26 → ICCU 23:44 → 5E 11-11 12:14
PROVIDERS: Internal Medicine; Nurse Practitioner Family; ADMIT Emergency Medicine
DX: A41.9 Sepsis, unspecified organism (principal); J18.9 Pneumonia, unspecified organism; J96.01 Acute respiratory failure with hypoxia; N17.0 Acute kidney failure with tubular necrosis; E87.1 Hypo-osmolality and hyponatremia; D68.69 Other thrombophilia; I13.0 Hypertensive heart and chronic kidney disease with heart failure and stage 1 through stage 4 chronic kidney disease, or unspecified chronic kidney disease; I25.810 Atherosclerosis of coronary artery bypass graft(s) without angina pectoris; I50.42 Chronic combined systolic (congestive) and diastolic (congestive) heart failure; R79.89 Other specified abnormal findings of blood chemistry; E66.9 Obesity, unspecified; E11.40 Type 2 diabetes mellitus with diabetic neuropathy, unspecified; R29.6 Repeated falls; E87.6 Hypokalemia; E11.22 Type 2 diabetes mellitus with diabetic chronic kidney disease; N18.3 Chronic kidney disease, stage 3 (moderate); E87.8 Other disorders of electrolyte and fluid balance, not elsewhere classified; D69.6 Thrombocytopenia, unspecified; Z53.21 Procedure and treatment not carried out due to patient leaving prior to being seen by health care provider; R79.82 Elevated C-reactive protein (CRP); I48.2 Chronic atrial fibrillation; R74.0 Nonspecific elevation of levels of transaminase and lactic acid dehydrogenase [LDH]; E11.65 Type 2 diabetes mellitus with hyperglycemia; D64.9 Anemia, unspecified; E83.41 Hypermagnesemia; W18.30XA Fall on same level, unspecified, initial encounter; Y93.89 Activity, other specified; Y92.89 Other specified places as the place of occurrence of the external cause; Y99.8 Other external cause status; Z95.810 Presence of automatic (implantable) cardiac defibrillator; Z79.4 Long term (current) use of insulin; Z95.2 Presence of prosthetic heart valve; I25.2 Old myocardial infarction; Z95.1 Presence of aortocoronary bypass graft; Z91.041 Radiographic dye allergy status; Z87.442 Personal history of urinary calculi; Z87.891 Personal history of nicotine dependence; Z81.1 Family history of alcohol abuse and dependence; Z84.89 Family history of other specified conditions; Z79.84 Long term (current) use of oral hypoglycemic drugs; Z68.37 Body mass index [BMI] 37.0-37.9, adult

== ENCOUNTER 2018-12-08 11:30 | Inpatient (IN) | payer MEDICARE ==
[~2018-12-08] VITALS: Ht 167.6 cm; Wt 102.1 kg
[2018-12-08 11:30] VITALS: BP 122/62
[2018-12-08 11:57] LABS: BASO % 0.3 % (0.0-1.0); EOS # 0.2 10*3/uL (0.0-0.4); EOS % 2.9 % (1.0-4.0); HEMATOCRIT 37.2 % (42.0-52.0); HEMOGLOBIN 11.3 g/dl (14.0-18.0); LYMPH # 1.9 10*3/uL (1.3-4.4); LYMPH % 29.1 % (27.0-41.0); MEAN CELL VOLUME 84.4 fl (80.0-94.0); MEAN CORPUSCULAR HGB 25.6 pg (27.0-31.0); MEAN CORPUSCULAR HGB CONC 30.4 g/dl (33.0-37.0); MONO # 0.7 10*3/uL (0.1-1.0); MONO % 10.6 % (3.0-9.0); NEUT # 3.7 10*3/uL (2.3-7.9); NEUT % 56.8 % (47.0-73.0); PLATELET COUNT AUTOMATED 115 10*3/uL (130-400); RED BLOOD COUNT 4.41 10*6/uL (4.50-5.90); RED CELL DISTRI WIDTH 17.2 % (0-14.5); WHITE BLOOD COUNT 6.6 10*3/uL (4.8-10.8)
--- NOTE | 2018-12-08 11:57 | NUR ---
PTS DAUGHTER CALLED TO CHECK ON PT. WAS INFORMED TESTING IS BEING DONE. AND PT IA AWAKE AND ALERT AT THIS TIME.
[2018-12-08 12:00] VITALS: BP 124/68
[2018-12-08 12:06] LABS: ACT PARTIAL THROMBO TIME 26.3 SECONDS (20.0-32.1)
[2018-12-08 12:13] LABS: ALBUMIN 3.7 gm/dl (3.1-4.5); CREATININE 1.96 mg/dL (0.70-1.30); TOTAL PROTEIN 7.5 gm/dL (6.4-8.2)
[2018-12-08 12:24] LABS: TROPONIN I 0.404 ng/ml (<0.045)
--- NOTE | 2018-12-08 12:24 | NUR ---
NOTIFIED BY LAB THAT PTS LACTIC ACID IS 2.5, AND TROPONIN 0.404. DR STANFORD NOTIFIED.
--- NOTE | 2018-12-08 12:38 | NUR ---
PT REQUESTING TO SEE NURSE. UPON ENTERING ROOM PT STATES I DONT KNOW WHY I AM HERE. INFORMED PT MIGUELITO CALLED EMS D/T PTS BGM BEING HIGH. REFUSING TO SIT IN BED STATES I AM NOT STAYING IN THIS BED I AM GOING TO SIT IN CHAIR NEXT TO BED. PT SITTING IN CHAIR AT BEDSIDE AT THIS TIME.
[2018-12-08 12:47] LABS: BILIRUBIN NEGATIVE (NEGATIVE); BLOOD NEGATIVE (NEGATIVE); CLARITY CLEAR (CLEAR); COLOR YELLOW (YELLOW); GLUCOSE 3+ (NEGATIVE); KETONE NEGATIVE (NEGATIVE); LEUKO ESTERASE NEGATIVE (NEGATIVE); NITRITE NEGATIVE (NEGATIVE); SPECIFIC GRAVITY <= 1.005 (1.005-1.030); UROBILINOGEN 0.2 E.U./dl (0.2-1.0)
[2018-12-08 13:26] LABS: BACTERIA TRACE; EPITHELIAL CELLS 0-2
[2018-12-08 14:00] VITALS: BP 118/62
--- NOTE | 2018-12-08 15:14 | NUR ---
NOTIFIED BY LAB PTS TROPONIN 0.415. DR STANFORD NOTIFIED.
[2018-12-08 15:25] VITALS: BP 150/90
--- NOTE | 2018-12-08 15:25 | NUR ---
A 78, admitted to 5E, under the services of MAME Villegas DO with a diagnosis of ARF,DEHYDRATION. Chief complaint is DIZZINESS AND HIGH BLOOD SUGAR THIS AM. Patient arrived via bed from ER. Monitor applied. Initial assessment completed. Vital signs taken and recorded. MAME VILLEGAS DO notified of admission to the unit. Orders received. See assessment for past medical history, medications and allergies. Patient and/or family oriented to unit. [address] visitation policy reviewed. Clothing/patient valuable form completed. JEFF CONTRERAS
[2018-12-08 16:00] VITALS: BP 150/93
--- NOTE | 2018-12-08 16:01 | NUR ---
DR. HUBBARD IN ROOM TO SEE PT.
[2018-12-08] MEDS ORDERED: LANTUS SOL100 UNIT/1 SQ (16:39)
[2018-12-08] MEDS ORDERED: LIPITOR10 MG PO (16:40)
--- NOTE | 2018-12-08 16:41 | NUR ---
CALLED DR. IZAGUIRRE MADE AWARE OF PT MEDICATIONS VERIFIED BY TERRELL.
--- NOTE | 2018-12-08 16:45 | NUR ---
SITTING UP IN RECLINER CHAIR. [id number], SEE EMAR. CALL LIGHT IN REACH. BODY ALARM ON.
--- NOTE | 2018-12-08 18:00 | NUR ---
SITTING UP IN RECLINER CHAIR. TOLERATING IV FLUIDS. CALL LIGHT IN REACH.
--- NOTE | 2018-12-08 18:56 | NUR ---
LEFT MESSAGE WITH ANSWERING SERVICE FOR [facility] FOR PALLIATIVE CARE CONSULT. THEY WILL HAVE HER CALL BACK.
--- NOTE | 2018-12-08 19:05 | NUR ---
[facility] FOR [facility]OSPICE FROM [facility] CALLED AND FAXING HER INFORMATION ON PT.
[2018-12-08 20:00] VITALS: BP 130/75
--- NOTE | 2018-12-08 20:00 | NUR ---
RESTING IN RECLINER WITH NO DISTRESS NOTED. AWAKE, FORGETFUL. RESPIRATIONS EASY. LUNGS DIMINISHED, CLEAR. PULSE OX 97% RA. BLE DISCOLORED WITH +2 EDEMA. IV FLUIDS INFUSING PER ORDER. CALL LIGHT WITHIN REACH. NO VOICED COMPLAINTS
--- NOTE | 2018-12-08 20:42 | NUR ---
24 HR chart check completed.
--- NOTE | 2018-12-08 23:00 | NUR ---
REMAINS IN RECLINER. NO DISTRESS NOTED. RESPIRATIONS EASY
[2018-12-09] VITALS: BP 112/60
--- NOTE | 2018-12-09 00:30 | NUR ---
SLEEPING. RESPIRATIONS EASY. VSS. IV FLUIDS MAINTAINED. CALL LIGHT WITHIN REACH
--- NOTE | 2018-12-09 03:00 | NUR ---
SLEEPING. IV FLUIDS MAINTAINED. CALL LIGHT WITHIN REACH
--- NOTE | 2018-12-09 06:00 | NUR ---
RESTED THROUGHOUT NIGHT WITH NO DISTRESS NOTED. RESPIRATIONS EASY. CALL LIGHT WITHIN REACH. NO VOICED COMPLAINTS THIS SHIFT
[2018-12-09 06:31] LABS: BASO % 0.5 % (0.0-1.0); EOS # 0.4 10*3/uL (0.0-0.4); EOS % 4.4 % (1.0-4.0); HEMATOCRIT 37.4 % (42.0-52.0); HEMOGLOBIN 11.3 g/dl (14.0-18.0); LYMPH # 2.3 10*3/uL (1.3-4.4); LYMPH % 27.7 % (27.0-41.0); MEAN CELL VOLUME 83.5 fl (80.0-94.0); MEAN CORPUSCULAR HGB 25.2 pg (27.0-31.0); MEAN CORPUSCULAR HGB CONC 30.2 g/dl (33.0-37.0); MEAN PLATELET VOLUME 10.8 fl (9.6-12.3); MONO # 0.9 10*3/uL (0.1-1.0); MONO % 10.9 % (3.0-9.0); NEUT # 4.6 10*3/uL (2.3-7.9); NEUT % 56.1 % (47.0-73.0); PLATELET COUNT AUTOMATED 116 10*3/uL (130-400); RED BLOOD COUNT 4.48 10*6/uL (4.50-5.90); RED CELL DISTRI WIDTH 17.2 % (0-14.5); WHITE BLOOD COUNT 8.2 10*3/uL (4.8-10.8)
[2018-12-09 06:50] LABS: CREATININE 1.43 mg/dL (0.70-1.30); PHOSPHOROUS 2.9 mg/dL (2.5-4.9); POTASSIUM 2.9 mmol/L (3.5-5.1)
--- NOTE | 2018-12-09 07:03 | NUR ---
Faxed palliative care order to [facility] and notified [place] palliative care nurse
--- NOTE | 2018-12-09 08:30 | NUR ---
PT SITTING UP IN RECLINER CHAIR. RESP-EASY AND REGULAR. CALL LIGHT IN REACH. SEE SHIFT ASSESSMENT.
--- NOTE | 2018-12-09 09:00 | NUR ---
Curtain Hemmer [employer] in to talk to patient. Patient states lives at home alone with his daughter living in [place] calling to check in on him. He has a son that lives near who also calls to check on him. There are 0 steps in the home. Physician: Dr. Praneeth Nunn Pharmacy: [facility] Home health services: none Patient's level of ADLs: INDEPENDENT Patient has working utilities: yes DME: none Follow-up physician's appointment after d/c: will be made by the hospitalist nurse director upon discharge Does patient want to access PORTAL?: no Discharge plan discussed with patient. He lives at home alone with his family calling in to check in on him. He is independent in his ADLs and ambulation. He drives. Discussed home health care services and he denies any home needs at this time. When medically stable he will be discharged to home. He is unsure of how he will get home at this time upon discharge. LUZMARIA MCCAIN
--- NOTE | 2018-12-09 09:00 | NUR ---
Nursing screen and Occupational Therapy referral received. Thank you. Diamond Luke OTR/L
--- NOTE | 2018-12-09 09:05 | NUR ---
PHYSICAL THERAPY Nursing screen received and chart reviewed. Physical therapy referral received. Thank you. Ana Cristina Ferreira,PT,DPT.
--- NOTE | 2018-12-09 09:14 | NUR ---
DR. HE CALLED MADE AWARE K LEVEL. HE WILL ORDER SOMETHING.
--- NOTE | 2018-12-09 09:50 | NUR ---
CALLED DR. HE MADE HIM AWARE PT IS VERY ANXIOUS AND WANTS TO LEAVE. THEY WILL BE MAKING ROUNDS. CALLED PT DAUGHTER AND SHE TRYING TO TALK WITH HIM ABOUT STAYING. CALL LIGHT IN REACH.
--- NOTE | 2018-12-09 10:00 | NUR ---
PT ANXIOUS WANTING TO LEAVE, WAITING FOR DOCTORS TO MAKE ROUNDS. AMBULATORY IN ROOM. CALL LIGHT IN REACH.
--- NOTE | 2018-12-09 10:43 | NUR ---
CORY reached out to patients daughter. CORY informed the daughter that the doctor feels it is unsafe for the patient to return home. CORY informed her the patient is not wanting to go to a SNF facility at this time. She wanted to know if we could get home health for the patient. She stated she does have a family member going into the patients home every few days to check on him and his medication. She stated previous attempts at home health have been declined by the patient. The daughter also stated that she just booked a plane ticket for her son to come up to this area on Dec 30 to take the patient back to [place] to be with them. CORY will talk to assistant case manager and the patient. -CORY Vera
--- NOTE | 2018-12-09 10:47 | NUR ---
DR. HUBBARD IN TO SEE PT.
--- NOTE | 2018-12-09 10:55 | NUR ---
PHYSICAL THERAPY Physical therapy evaluation complete, 5E. Full evaluation/details to follow. Low complexity evaluation (98538) per chart review and evaluation. PT to progress with gait, balance, and LE strength per POC. Recommend discharge home with home health PT/Nursing with 24 hour care and supervision for safety. Thank you. Ana Cristina Ferreira,PT,DPT.
--- NOTE | 2018-12-09 11:07 | NUR ---
Occupational therapy evaluation completed in full on floor 5 with complete eval to follow. Patient precautions include fall risk, unsteady functional mobility/transfers, and confusion. Per OT eval and POC, OTR recommending SNF with OT/PT to increase ADLs, cognition, functional mobility/transfers, and in room IADLs. If refused, rec home health OT/PT with / supervision. Thank you for the referral. Meaghan Carrion, OTR/L
--- NOTE | 2018-12-09 12:41 | NUR ---
Spoke to Ivania Syed from [facility]. She is waiting for the daughter to return her call. She states patient needs [facility].
[2018-12-09] MEDS ORDERED: BUMETANIDE1 MG PO (14:47)
--- NOTE | 2018-12-09 16:12 | NUR ---
Discharge instructions reviewed with patient/family. Patient receptive and verbalizes understanding. Follow-up care arranged. Written instructions given to patient/family. HEPLOCK REMOVED 2X2 APPLIED. SISTER IN LAW HER TO PICK PT UP. EXPLAINED MEDICATIONS TO SISTERIN LAW AND PATIENT. JEFF CONTRERAS
== END 2018-12-09 16:12 | disposition home or self-care (01) | DRG 682 ==
LOC: ED 11:30 → 5E 14:28 → EDHOLD 14:28 → 5E 14:45
PROVIDERS: Emergency Medicine; Student in an Organized Health Care Education/Training Program; ADMIT Internal Medicine
DX: N17.0 Acute kidney failure with tubular necrosis (principal); G93.41 Metabolic encephalopathy; I50.42 Chronic combined systolic (congestive) and diastolic (congestive) heart failure; D68.69 Other thrombophilia; I13.0 Hypertensive heart and chronic kidney disease with heart failure and stage 1 through stage 4 chronic kidney disease, or unspecified chronic kidney disease; E87.2 Acidosis; N17.9 Acute kidney failure, unspecified; E11.65 Type 2 diabetes mellitus with hyperglycemia; I25.10 Atherosclerotic heart disease of native coronary artery without angina pectoris; I48.2 Chronic atrial fibrillation; E11.22 Type 2 diabetes mellitus with diabetic chronic kidney disease; N18.3 Chronic kidney disease, stage 3 (moderate); D64.9 Anemia, unspecified; E87.6 Hypokalemia; R26.81 Unsteadiness on feet; E80.6 Other disorders of bilirubin metabolism; R74.0 Nonspecific elevation of levels of transaminase and lactic acid dehydrogenase [LDH]; R81 Glycosuria; Z95.1 Presence of aortocoronary bypass graft; E86.0 Dehydration; E66.9 Obesity, unspecified; Z95.810 Presence of automatic (implantable) cardiac defibrillator; Z79.01 Long term (current) use of anticoagulants; Z95.2 Presence of prosthetic heart valve; Z87.891 Personal history of nicotine dependence; Z81.1 Family history of alcohol abuse and dependence; Z84.89 Family history of other specified conditions; Z91.041 Radiographic dye allergy status; I25.2 Old myocardial infarction; Z79.899 Other long term (current) drug therapy; Z79.4 Long term (current) use of insulin; Z91.14 Patient's other noncompliance with medication regimen; Z68.36 Body mass index [BMI] 36.0-36.9, adult

== ENCOUNTER 2018-12-25 18:31 | Emergency (ER) | payer MEDICARE ==
[~2018-12-25] VITALS: Ht 167.6 cm; Wt 99.8 kg
[~2018-12-25 18:31] MED LIST changes: +BUMETANIDE1 MG PO; +LANTUS SOL100 UNIT/1 SQ; +LIPITOR10 MG PO
[2018-12-25 19:00] LABS: BASO % 0.4 % (0.0-1.0); EOS # 0.2 10*3/uL (0.0-0.4); EOS % 3.3 % (1.0-4.0); HEMATOCRIT 35.2 % (42.0-52.0); LYMPH % 28.9 % (27.0-41.0); MEAN CORPUSCULAR HGB 25.9 pg (27.0-31.0); MEAN CORPUSCULAR HGB CONC 31.3 g/dl (33.0-37.0); MEAN PLATELET VOLUME 10.2 fl (9.6-12.3); MONO % 14.2 % (3.0-9.0); NEUT # 3.7 10*3/uL (2.3-7.9); NEUT % 52.9 % (47.0-73.0); PLATELET COUNT AUTOMATED 122 10*3/uL (130-400); RED BLOOD COUNT 4.24 10*6/uL (4.50-5.90); RED CELL DISTRI WIDTH 16.6 % (0-14.5); WHITE BLOOD COUNT 6.9 10*3/uL (4.8-10.8)
[2018-12-25 19:12] LABS: ACT PARTIAL THROMBO TIME 26.2 SECONDS (20.0-32.1)
[2018-12-25 19:27] LABS: ALBUMIN 3.6 gm/dl (3.1-4.5); CREATININE 1.86 mg/dL (0.70-1.30); POTASSIUM 3.2 mmol/L (3.5-5.1); TOTAL PROTEIN 7.3 gm/dL (6.4-8.2)
[2018-12-25 19:29] LABS: TROPONIN I 0.351 ng/ml (<0.045)
== END 2018-12-25 21:34 | disposition left against medical advice (07) ==
LOC: ED 18:31
PROVIDERS: Internal Medicine
DX: R42 Dizziness and giddiness (principal); I25.10 Atherosclerotic heart disease of native coronary artery without angina pectoris; I48.2 Chronic atrial fibrillation; I13.0 Hypertensive heart and chronic kidney disease with heart failure and stage 1 through stage 4 chronic kidney disease, or unspecified chronic kidney disease; E11.22 Type 2 diabetes mellitus with diabetic chronic kidney disease; N18.3 Chronic kidney disease, stage 3 (moderate); I50.40 Unspecified combined systolic (congestive) and diastolic (congestive) heart failure; I25.2 Old myocardial infarction; E66.9 Obesity, unspecified; Z91.041 Radiographic dye allergy status; Z79.899 Other long term (current) drug therapy; Z79.4 Long term (current) use of insulin; Z87.891 Personal history of nicotine dependence; Z68.30 Body mass index [BMI] 30.0-30.9, adult

== ENCOUNTER 2019-01-06 11:25 | Emergency (ER) | payer MEDICARE ==
[~2019-01-06] VITALS: Ht 167.6 cm; Wt 99.8 kg
[2019-01-06 12:14] LABS: BASO % 0.3 % (0.0-1.0); EOS # 0.2 10*3/uL (0.0-0.4); EOS % 2.7 % (1.0-4.0); HEMATOCRIT 36.8 % (42.0-52.0); HEMOGLOBIN 11.5 g/dl (14.0-18.0); LYMPH # 1.7 10*3/uL (1.3-4.4); LYMPH % 26.9 % (27.0-41.0); MEAN CELL VOLUME 81.2 fl (80.0-94.0); MEAN CORPUSCULAR HGB 25.4 pg (27.0-31.0); MEAN CORPUSCULAR HGB CONC 31.3 g/dl (33.0-37.0); MONO # 0.9 10*3/uL (0.1-1.0); MONO % 14.2 % (3.0-9.0); NEUT # 3.6 10*3/uL (2.3-7.9); NEUT % 55.4 % (47.0-73.0); PLATELET COUNT AUTOMATED 134 10*3/uL (130-400); RED BLOOD COUNT 4.53 10*6/uL (4.50-5.90); WHITE BLOOD COUNT 6.4 10*3/uL (4.8-10.8)
[2019-01-06 12:31] LABS: ALBUMIN 3.9 gm/dl (3.1-4.5); CREATININE 1.7 mg/dL (0.70-1.30); POTASSIUM 3.5 mmol/L (3.5-5.1); TOTAL PROTEIN 7.9 gm/dL (6.4-8.2)
== END 2019-01-06 14:21 | disposition home or self-care (01) ==
LOC: ED 11:25
PROVIDERS: Nurse Practitioner Family
DX: R73.9 Hyperglycemia, unspecified (principal); Z87.891 Personal history of nicotine dependence; Z95.1 Presence of aortocoronary bypass graft; Z79.899 Other long term (current) drug therapy; Z79.4 Long term (current) use of insulin; Z91.041 Radiographic dye allergy status

== ENCOUNTER 2019-02-02 20:54 | Inpatient (IN) | payer MEDICARE ==
[~2019-02-02] VITALS: Ht 167.6 cm; Wt 101.7 kg
--- NOTE | ~2019-02-02 | CON ---
[place], [place] REPORT OF CONSULTATION NAME: PARISH BECKETT UNIT #: [id number] ROOM: 510 DOCTOR: KIMMY RON MD BIRTHDATE: [birth year] DOS: 02/03/2019 CARDIOLOGY CONSULT REASON FOR CONSULTATION: Chest pain. HISTORY OF PRESENT ILLNESS: The patient is an 78-year-old gentleman with history of coronary artery disease, bypass surgery, diabetes, dementia, was presented to the Emergency Room for hyperglycemia. In the Emergency Room, he was complaining that he had some tightness in the middle of the chest. Hence, Cardiology consulted. The patient was noted to have elevated troponin. At the time of examination, on repeated questioning, he denies that he ever had any chest pain, but feeling occasional tightness in the chest area at rest. No radiation, no associated symptoms. Again, the patient is somewhat poor historian. He follows with the education diagnostician in [place]. He is noted to have chronically elevated troponin since 2016. Again, he denies any chest pain, shortness of breath. No palpitation, dizziness, no PND. No nausea or vomiting. No fever and chills, no cough. No bladder or bowel symptoms. REVIEW OF SYSTEMS: Ten systems negative except as mentioned above. PAST MEDICAL HISTORY: 1. Coronary artery disease. 2. Atrial fibrillation. 3. Chronic kidney disease. 4. Diabetes type 2. 5. Hypertension. 6. Dementia. PAST SURGICAL HISTORY: 1. History of heart surgery, details unknown. 2. Pacer ICD implant. 3. Questionable mitral valve replacement. SOCIAL HISTORY: The patient does not smoke, does not drink, does not use illicit drugs. FAMILY HISTORY: Nil contributory. Father from cerebral hemorrhage. Mother from natural causes. HOME MEDICATIONS: Reviewed. ALLERGIES: Reviewed. PHYSICAL EXAMINATION: VITAL SIGNS: Reviewed. GENERAL: Alert, comfortable, in no acute distress. HEENT: Pupils are round and equal. No jaundice. NECK: Supple, no distended neck veins, no carotid bruit. CHEST: Symmetrical, nontender. Pacer, ICD site is unremarkable. [place], [place] REPORT OF CONSULTATION NAME: PARISH BECKETT UNIT #: [id number] ROOM: 510 DOCTOR: ASAF BARRETO CHAKRI BIRTHDATE: [birth year] LUNGS: Good air entry bilaterally, slightly diminished at bases. HEART: Regular rhythm, no S3. Grade 1/6 systolic murmur. ABDOMEN: Obese, nontender. Bowel sounds normal. EXTREMITIES: Showed trace edema. Distal pulses palpable. SKIN: Warm and dry. No cyanosis, no clubbing. RECTAL: Deferred. GENITOURINARY: Deferred. NEUROLOGIC: Alert with no focal neurologic deficit. MUSCULOSKELETAL: No joint tenderness or swelling. REVIEW OF THE DIAGNOSTIC TESTS: EKG and labs reviewed. EKG showed atrial fibrillation with ventricular pacing. CBC, chemistry reviewed. Creatinine 2.19. Cardiac troponins are elevated at 0.379, 0.374, 0.364. His troponins in 10/2018 were as high as 1.0 as well as in 10/2015. Apparently, the patient had a stress test in 05/2018. IMPRESSION: 1. Elevated troponin, chronic elevation. The patient denies any chest pain or exertion. 2. Coronary artery disease, status post bypass surgery. 3. Possible mitral valve replacement in the past. 4. Chronic atrial fibrillation. 5. Status post pacer and ICD implant. 6. Chronic kidney disease stage 4. 7. Diabetes type 2. 8. IV drug allergy. RECOMMENDATIONS: 1. The patient denies any chest pain and clinically there is no acute CHF. 2. Continue his current cardiac medications to include beta blockers and statins. The patient was not on aspirin due to his Eliquis. 3. Continue his Eliquis for his atrial fibrillation. 4. No further cardiac testing. 5. The patient can be discharged home from the cardiac standpoint. 6. No family at bedside at the time of my examination. 7. He can follow with his education diagnostician in [place]. KIMMY RON MD CM:CONSTR:REPORT OF CONSULTATION 1223 02/17/19 0827 interface
--- NOTE | ~2019-02-02 | EKG ---
[place], [place] ELECTROCARDIOGRAM REPORT NAME: PARISH BECKETT UNIT #: [id number] ROOM: 510 DOCTOR: SIA DRAFT REPORT BIRTHDATE: [address] [facility] Test Date: 2019-02-03 Test Time: 02:10:09 Pat Name: PARISH BECKETT Department: Room: 510 1 Gender: M Hog Sawyer: : 1940 Requested By: MARCUS IZAGUIRRE Order Number: [id number] Reading MD: Ernie Booth Measurements Intervals [place] Rate: 70 P: MN: QRS: -83 QRSD: 190 T: 88 QT: 488 QTc: 527 Interpretive Statements Afib/flutter and ventricular-paced rhythm No further analysis attempted due to paced rhythm Compared to ECG 12/25/2018 18:35:22 No significant changes Electronically Signed On 02-04-2019 9:52:57 PDT by Ernie Booth CM:EKGRPT:ELECTROCARDIOGRAM REPORT [id number] MARCUS HENRY DRAFT REPORT MARCUS IZAGUIRRE DO
--- NOTE | ~2019-02-02 | EKG ---
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
--- NOTE | ~2019-02-02 | EKG ---
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
--- NOTE | ~2019-02-02 | PR ---
[place], [place] PROGRESS NOTE NAME: PARISH BECKETT UNIT #: [id number] ROOM: 510 DOCTOR: KIMMY RON MD BIRTHDATE: [birth year] DOS: 02/04/2019 CARDIOLOGY FOLLOWUP VISIT NOTE REASON FOR VISIT: The patient with elevated troponin and known coronary artery disease. HISTORY OF PRESENT ILLNESS: The patient denies any chest pain, shortness of breath, no acute distress. No PND, no orthopnea. No nausea, vomiting, diarrhea. He wanted to go home. No family at bedside. REVIEW OF SYSTEMS: Review of the 8 systems negative except as mentioned above. RHYTHM STRIPS: The patient was off the monitor. PHYSICAL EXAMINATION: VITAL SIGNS: Blood pressure 142/66, pulse 70, respirations 20. GENERAL: Alert, comfortable, in no acute distress. HEENT: Pupils are round and equal, no jaundice. NECK: Supple, no distended neck veins. CHEST: Nontender. LUNGS: Clear to auscultation bilaterally. HEART: Slightly irregular. Grade 1/6 systolic murmur. ABDOMEN: Nontender. Bowel sounds normal. EXTREMITIES: Showed mostly nonpitting edema. Distal pulses are fair. MEDICATIONS AND ALLERGIES: Reviewed. IMPRESSION: 1. Borderline elevation of troponin. The patient denies any chest pain. The patient had a chronically elevated troponin. 2. Coronary artery disease. 3. Paroxysmal atrial fibrillation. 4. Acute on chronic heart failure. 5. Chronic kidney disease. 6. Diabetes. 7. Anemia. RECOMMENDATIONS: 1. Continue current medications. 2. No family at bedside. 3. The patient can be discharged from the cardiac standpoint, possibly need to go to assisted living or alf due to his dementia. There was no further cardiac testing. [place], [place] PROGRESS NOTE NAME: PARISH BECKETT UNIT #: [id number] ROOM: 510 DOCTOR: KIMMY RON MD BIRTHDATE: [birth year] KIMMY RON MD CM:PNTRANS [id number] KIMMY RON MD 02/05/19 0025 interface
--- NOTE | ~2019-02-02 | CON ---
[place], [place] REPORT OF CONSULTATION NAME: [facility]ISH [facility]ECKETT [id number] UNIT #: [id number] ROOM: 510 DOCTOR: PHD ALESIA PAIGE BIRTHDATE: [birth year] DOS: 02/04/2019 HISTORY OF PRESENT ILLNESS: The patient is an 78-year-old male, referred by the hospitalist for competency evaluation. At the present time, the patient is on the 5th floor at [facility]. The patient presented to the ED with chest tightness and hyperglycemia. The patient lives at home alone after his . He has 3 children. 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 He denied tobacco, alcohol and illegal drug use. PAST MEDICAL HISTORY: Coronary artery disease, cardiomegaly, chronic atrial fibrillation, CKD stage 3, combined systolic and diastolic heart failure, dementia, type 2 diabetes, essential hypertension, hypercoagulable state due to atrial fibrillation, metabolic encephalopathy, nonadherence to treatment, NSTEMI, obesity, transaminitis, unsteady gait. MEDICATIONS: Lantus, Risperdal, Lipitor, Apresoline, Eliquis, Amaryl, Coreg, Humalog. The patient was sitting comfortably. He was irritable due to wanting to leave the hospital. He was awake, alert and oriented to person and place. He looked to his white board to determine the time. He could not name the president or past president or any current events. He gave incorrect next holiday. Affect was restricted. There was no suicidal or homicidal ideation, plan, and intent. Speech was within normal limits with respect to rhythm, rate, volume and tone. He was easily confused in conversation and lost track of what he was talking about. The patient earned a 15/30 on the [place] Cognitive Assessment with an intact score being greater than or equal to 26/30. Mini trails B and Necker cube copy were impaired. He was able to draw a clock and put in the numbers correctly, but was not able to place the hands correctly. He was able to provide a minimum of 5 digits forward and 3 digits backward. He made several errors on a test of vigilance and could only complete one correct serial 7 subtraction. He often lost track of where he was with his math. With respect to language abilities, he made numerous errors on a test of repetition. He was able to provide 10 words in 1 minute on a test of verbal fluency, which is under the cut off of 11 words. He was able to obtain 1 out of 2 points on a test of verbal abstraction. Naming was noteworthy for calling a rhinoceros "hippo." On a test of memory, he was able to recall 5/5 and 4/5 words on immediate recall trials. After a brief delay, he was not able to recall any words. He was not able to recall that we had engaged in the memory test and became irritable when he was not able to recall the words. He was able to recall 1 word with category cues and 2 words with multiple choices. He was not able to adequately describe his medical condition or medications he takes. His son is his durable healthcare power of management instructor. Overall, the patient demonstrated significant cognitive deficits in the areas of executive functioning and memory. He also demonstrated deficits in attention and language. Contributing factors may include his history of cardiovascular disease. In my opinion, the patient is not competent to make informed healthcare decisions and all healthcare decisions should be deferred to his healthcare power of management instructor. DIAGNOSES: Intermittent explosive disorder, unspecified neurocognitive [place], [place] REPORT OF CONSULTATION NAME: PARISH BECKETT UNIT #: [id number] ROOM: 510 DOCTOR: NATHANAEL, PHD ALESIA BIRTHDATE: [birth year] disorder. RECOMMENDATIONS: In my opinion, the patient is not competent to make informed healthcare decisions. All healthcare decisions should be deferred to his healthcare power of management instructor, which is his son. ADDENDUM: The patient's behavior became increasingly irritable as he tried to leave the hospital against medical advice and he was pink slipped due to risk of harm to self. I consulted with Jero on the [facility] and he stated that the patient might be an appropriate candidate if his healthcare power of management instructor consents to inpatient psychiatric treatment. Thank you very much for this consult. Brigette Paige, PhD CM:CONSTR:REPORT OF CONSULTATION 1640 02/05/19 0623 interface
[2019-02-02 20:58] VITALS: BP 145/73
[2019-02-02 21:21] LABS: BILIRUBIN NEGATIVE (NEGATIVE); BLOOD NEGATIVE (NEGATIVE); CLARITY CLEAR (CLEAR); COLOR YELLOW (YELLOW); GLUCOSE 3+ (NEGATIVE); KETONE NEGATIVE (NEGATIVE); LEUKO ESTERASE NEGATIVE (NEGATIVE); NITRITE NEGATIVE (NEGATIVE); PH 6.5 (5.0-9.0); SPECIFIC GRAVITY <= 1.005 (1.005-1.030); UROBILINOGEN 0.2 E.U./dl (0.2-1.0)
[2019-02-02 21:26] LABS: BASO % 0.6 % (0.0-1.0); EOS # 0.3 10*3/uL (0.0-0.4); EOS % 3.9 % (1.0-4.0); HEMATOCRIT 37.9 % (42.0-52.0); HEMOGLOBIN 12.1 g/dl (14.0-18.0); LYMPH # 2.1 10*3/uL (1.3-4.4); LYMPH % 31.1 % (27.0-41.0); MEAN CELL VOLUME 82.6 fl (80.0-94.0); MEAN CORPUSCULAR HGB 26.4 pg (27.0-31.0); MEAN CORPUSCULAR HGB CONC 31.9 g/dl (33.0-37.0); MEAN PLATELET VOLUME 10.7 fl (9.6-12.3); MONO % 15.3 % (3.0-9.0); NEUT # 3.2 10*3/uL (2.3-7.9); NEUT % 48.8 % (47.0-73.0); PLATELET COUNT AUTOMATED 126 10*3/uL (130-400); RED BLOOD COUNT 4.59 10*6/uL (4.50-5.90); RED CELL DISTRI WIDTH 16.4 % (0-14.5); WHITE BLOOD COUNT 6.6 10*3/uL (4.8-10.8)
[2019-02-02 21:28] LABS: BACTERIA TRACE; EPITHELIAL CELLS 0-2
[2019-02-02 21:47] VITALS: BP 141/80
[2019-02-02 21:51] LABS: CREATININE 2.19 mg/dL (0.70-1.30); POTASSIUM 3.6 mmol/L (3.5-5.1)
[2019-02-02 22:47] VITALS: BP 142/76
[2019-02-03 00:15] VITALS: BP 151/85
[2019-02-03 01:00] VITALS: BP 134/70
[2019-02-03 08:00] VITALS: BP 129/77
[2019-02-03 12:00] VITALS: BP 134/73
[2019-02-03 16:00] VITALS: BP 137/69
[2019-02-03 20:00] VITALS: BP 133/73
[2019-02-04] VITALS: BP 142/66
[2019-02-04 06:32] LABS: CREATININE 1.66 mg/dL (0.70-1.30); PHOSPHOROUS 3.3 mg/dL (2.5-4.9); POTASSIUM 3.5 mmol/L (3.5-5.1)
[2019-02-04 06:38] LABS: BASO % 0.4 % (0.0-1.0); EOS # 0.3 10*3/uL (0.0-0.4); EOS % 3.9 % (1.0-4.0); HEMATOCRIT 40.2 % (42.0-52.0); LYMPH # 2.3 10*3/uL (1.3-4.4); LYMPH % 32.3 % (27.0-41.0); MEAN CELL VOLUME 82.7 fl (80.0-94.0); MEAN CORPUSCULAR HGB 24.7 pg (27.0-31.0); MEAN CORPUSCULAR HGB CONC 29.9 g/dl (33.0-37.0); MEAN PLATELET VOLUME 10.7 fl (9.6-12.3); MONO # 1.1 10*3/uL (0.1-1.0); MONO % 15.6 % (3.0-9.0); NEUT # 3.3 10*3/uL (2.3-7.9); NEUT % 47.5 % (47.0-73.0); PLATELET COUNT AUTOMATED 131 10*3/uL (130-400); RED BLOOD COUNT 4.86 10*6/uL (4.50-5.90); RED CELL DISTRI WIDTH 16.7 % (0-14.5)
[2019-02-04 08:00] VITALS: BP 138/80
[2019-02-04 11:58] VITALS: BP 131/82
[2019-02-04] MEDS ORDERED: RISPERIDONE0.5 MG PO (15:37)
[2019-02-04 16:00] VITALS: BP 132/70
== END 2019-02-04 16:30 | disposition home health service (06) | DRG 391 ==
LOC: ED 20:54 → 5E 02-03 00:12 → EDHOLD 02-03 00:12 → 5E 02-03 00:40
PROVIDERS: Emergency Medicine; Internal Medicine; Student in an Organized Health Care Education/Training Program; ADMIT Internal Medicine
DX: K21.9 Gastro-esophageal reflux disease without esophagitis (principal); G93.41 Metabolic encephalopathy; N17.0 Acute kidney failure with tubular necrosis; E87.1 Hypo-osmolality and hyponatremia; D68.69 Other thrombophilia; I50.42 Chronic combined systolic (congestive) and diastolic (congestive) heart failure; I13.0 Hypertensive heart and chronic kidney disease with heart failure and stage 1 through stage 4 chronic kidney disease, or unspecified chronic kidney disease; N18.4 Chronic kidney disease, stage 4 (severe); I48.20 Chronic atrial fibrillation, unspecified; F41.9 Anxiety disorder, unspecified; E11.22 Type 2 diabetes mellitus with diabetic chronic kidney disease; F63.81 Intermittent explosive disorder; G30.9 Alzheimer's disease, unspecified; D69.6 Thrombocytopenia, unspecified; R74.0 Nonspecific elevation of levels of transaminase and lactic acid dehydrogenase [LDH]; E87.8 Other disorders of electrolyte and fluid balance, not elsewhere classified; I25.709 Atherosclerosis of coronary artery bypass graft(s), unspecified, with unspecified angina pectoris; F02.80 Dementia in other diseases classified elsewhere, unspecified severity, without behavioral disturbance, psychotic disturbance, mood disturbance, and anxiety; E66.9 Obesity, unspecified; E11.65 Type 2 diabetes mellitus with hyperglycemia; Z79.84 Long term (current) use of oral hypoglycemic drugs; Z91.041 Radiographic dye allergy status; I25.2 Old myocardial infarction; Z95.1 Presence of aortocoronary bypass graft; Z95.810 Presence of automatic (implantable) cardiac defibrillator; Z95.2 Presence of prosthetic heart valve; Z87.891 Personal history of nicotine dependence; Z81.1 Family history of alcohol abuse and dependence

== ENCOUNTER 2019-02-04 16:32 | Inpatient (IN) | payer MEDICARE ==
[~2019-02-04] VITALS: Ht 167.6 cm; Wt 101.6 kg
--- NOTE | ~2019-02-04 | WRIGHTHP ---
[place], [place] PATIENT HISTORY AND PHYSICAL EXAM NAME[id number] UNIT #: [id number] ROOM: 314 DOCTOR: ELIZABETH OLIVERA MD BIRTHDATE: [birth year] DOS: 02/05/2019 INITIAL PSYCHIATRIC EVALUATION CHIEF COMPLAINT: "I just want to be able to go home soon." HISTORY OF PRESENT ILLNESS: This is an 78-year-old white male who was initially admitted to the medical floor due to hyperglycemia. While on the medical floor, the patient was deemed incompetent and his power of attorney general kicked in. Power of attorney general has clearly stated that she would like the patient to come to [place] to be closer to family there. The patient has had an alteration in mental status while on the medical floor and become increasingly verbally and physically combative and was exit seeking, attempting to leave. He would not be redirected and was physically combative. He is admitted now to rule out any organic factors, to stabilize on medication, to return to the least restrictive environment when psychiatrically stable. PAST MEDICAL HISTORY: Remarkable for coronary artery disease, cardiomegaly, atrial fibrillation, chronic kidney disease stage 3, congestive heart failure, dementia, diabetes, hypertension, anemia, obesity, thrombocytopenia, and gait disturbance. SOCIAL HISTORY: He does not drink alcohol. He is a former smoker, but quit many years ago. He has no illicit drug use. ALLERGIES: He lists allergies to IVP DYE. STRENGTHS: Ambulatory, good verbal skills. WEAKNESSES: Cognitive decline, poor coping skills. MENTAL STATUS: The patient is alert and oriented with some time gaps. Mood does seem to be somewhat irritable and anxious. He is fixated on wanting to go home. He is rather vague, though on the circumstances that led to him being admitted here, there was no hypomania or santos. There was no gross psychosis. Short-term memory does have significant gaps. DIAGNOSES: Intermittent explosive disorder and Alzheimer's dementia. PLAN: Routine screening examination revealed an elevated ammonia level of 53. I will start lactulose 30 grams twice a day. Given this elevated ammonia level, I will discontinue his Depakote as not to further tax his liver. Routine screening examinations also reveal a vitamin D level that is low at 29. I will augment with vitamin D 5000 international units daily. I have also started Exelon patch 4.6 mg a day. We will monitor and titrate as needed and as tolerated. Engage in individual and saldana milieu activity, returning to the least restrictive environment when psychiatrically stable. [place], [place] PATIENT HISTORY AND PHYSICAL EXAM NAME: PARISH BECKETT UNIT #: [id number] ROOM: [facility] DOCTOR: ELIZABETH OLIVERA MD BIRTHDATE: [birth year] ELIZABETH OLIVERA MD CM:HISPHYS:PATIENT HISTORY AND PHYSICAL EXAMINATION 1016 1026 ELIZABETH OLIVERA MD 02/05/19 1025 interface
--- NOTE | ~2019-02-04 | CON ---
[place], [place] REPORT OF CONSULTATION NAME[facility]ECK[id number] UNIT #: [id number] ROOM: 314 DOCTOR: DHEERAJ ROSALES ED.D) BIRTHDATE: [birth year] DOS: 02/10/2019 HISTORY OF PRESENT ILLNESS: The patient is an 78-year-old male, referred by Dr. Olivera for second opinion regarding this patient's competency. At the present time, this patient is on the [facility] at [facility]. He is a and he does have 2 sons and 1 daughter. His daughter resides in [place] and his 2 sons live near [place], [place]. One of his sons has a power of staff attorney for the patient. 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 This patient's family physician is Dr. Nunn and his medical history is pertinent for coronary artery disease, cardiomegaly, atrial fibrillation, chronic kidney disease stage 3, congestive heart failure, dementia, diabetes mellitus, hypertension, anemia and thrombocytopenia. His medications include Humalog insulin, Bumex, Amaryl, Coreg, Eliquis, Apresoline, Lantus pen, Lipitor, Namenda, Exelon, Risperdal, vitamin D and Cefolac. This patient denies any significant substance abuse issues. This patient was awake, alert and mostly oriented. He could name the president, but otherwise he had significant short-term memory deficits. I introduced myself to him 3 different times and he never could remember my name. I also asked him about his medical problems and he stated he had no medical problems except fact that he is diabetic. I asked him what medications he took and he said he takes none other than insulin. He is on a very lengthy regimen of medications at this time. He does appear to have issues with regard to cognitive processing and he has some short-term memory deficits. In my opinion, all decisions regarding this patient should be made by the power of staff attorney who is his son. Power of staff attorney could make decisions about where the patient should stay. I did express my concern that he is living alone and he states that he was fine living alone, even though he did not have any idea what his medications were. In my opinion, without significant supervision, he would not be safe living independently. DIAGNOSES: 1. Dementia --Alzheimer's type. 2. Intermittent explosive disorder. RECOMMENDATIONS: In my opinion, all decisions regarding this patient should be made by his healthcare power of staff attorney until such time as he may return to normal cognitive status, which is unlikely. Thank you very much for this consult. [place], [place] REPORT OF CONSULTATION NAME: BRANDENSAILAJAPARISH UNIT #: [id number] ROOM: [facility] DOCTOR: DHEERAJ ROSALES ED.D (YANETH) BIRTHDATE: [birth year] DHEERAJ ROSALES ED.D CM:CONSTR:REPORT OF CONSULTATION 34 02/11/19 0650 interface ELIZABETH OLIVERA MD
--- NOTE | ~2019-02-04 | DS ---
[place], [place] DISCHARGE SUMMARY [id number] UNIT #: [id number] ROOM: 314 DOCTOR: ELIZABETH OLIVERA MD BIRTHDATE: [birth year] DOS: 02/12/2019 CHIEF COMPLAINT: "I just want to be able to go home." HISTORY OF PRESENT ILLNESS: This is an 78-year-old white male who was initially admitted to the medical floor due to hyperglycemia. While on the medical floor, he was deemed incompetent and his power of assistant district attorney took it, became in effect. The power of assistant district attorney has clearly stated that she does not feel that the patient can go home as he is not taking care of his basic needs. The patient did have a significant alteration on the medical floor, became increasingly verbally and physically combative and was exit seeking and attempting to leave. When redirected, he became physically combative. He is now admitted to the U to rule out organic factors and to stabilize on medication. SUMMARY OF HOSPITAL COURSE: The patient was admitted to the unit where routine screening examinations revealed an elevated ammonia level of 53. He was started on lactulose 30 grams twice daily. Because of this, his Depakote was discontinued and instead his Risperdal was increased from 0.5 at bedtime to 0.5 mg twice a day, vitamin D level was also low at 29, so he was started on vitamin D 50,000 International Units daily. He was also started on Exelon patch 4.6 mg a day and this was titrated upwards to its maximum dose during his stay of 9.5 mg a day and later this was augmented with Namenda and the Namenda was rapidly titrated and well tolerated to a dose of 10 mg twice a day. While his mental status improved during his stay, he was still felt to be somewhat confused. Dr. Brigette Paige, psychologist, who saw him on the medical floor, was reconsulted who did agree that the patient's mental status had improved, but still deemed him incompetent because of short term memory gaps. To get a second opinion, Dr. Arsenio Stoddard, psychologist, was consulted and to deem the patient incompetent to make decisions as his judgment and short-term memory was poor. Family from [place] did come to town in order to take him back to [place] for at least a part of the stay if not permanently. MENTAL STATUS AT DISCHARGE: He is alert and oriented with time gaps. Mood does seem to be euthymic. Affect appropriate. No santos, hypomania or psychosis is noted. Short-term memory remains poor. DISCHARGE DIAGNOSES: Intermittent explosive disorder, Alzheimer's dementia. DISPOSITION: All of his prescriptions have been printed and will be sent with him. At the time of discharge, he was medically and psychiatrically stable. ADDENDUM CHIEF COMPLAINT: "Doc, I am ready to go, thank you so much." SUMMARY OF THE VISIT: The patient was interviewed in the dining room. As he saw me, he reached out to shake my hand. He thanked me for helping him and stated he was ready to go. I mistakenly told him yesterday that family was coming yesterday to pick him up. In reality, the family is coming today, landing in [place] and then driving over to pick him up. They will spend [place], [place] DISCHARGE SUMMARY [facility]: [id number] UNIT #: [id number] ROOM: [facility] DOCTOR: ELIZABETH OLIVERA MD BIRTHDATE: [birth year] several days here in the area before they fly him back to the [facility]. As he saw me, he reached out to shake my hand. He thanked me for helping him and stated he was ready to go. I mistakenly told him yesterday that family was coming yesterday to pick him up. In reality, the family is coming today, landing in [place] and then driving over to pick him up. They will spend several days here in the area before they fly him back to the [facility]. MENTAL STATUS AT DISCHARGE: The patient is alert and oriented with time gaps. Mood does seem to be more euthymic. Affect is more appropriate. There is no santos, hypomania, or psychosis. Short-term memory continues to have gaps. Discharge diagnosis and disposition is per the discharge summary dictated on 02/11/2019. ELIZABETH OLIVERA MD CM:DISCHARG [id number] ELIZABETH OLIVERA MD 02/12/19 1514 interface
--- NOTE | ~2019-02-04 | PR ---
[place], [place] PROGRESS NOTE NAME: [facility] UNIT #: [id number] ROOM: 314 DOCTOR: ELIZABETH OLIVERA MD BIRTHDATE: [birth year] DOS: 02/09/2019 INTERVAL NOTE CHIEF COMPLAINT: "I really need to get out of here. I'm doing better." SUMMARY OF THE VISIT: The patient was interviewed as he was sitting at the edge of the dining area. He had already eaten breakfast. I discussed at length the process that was going to take place. I explained to him how upon admission, he was much more confused and disoriented and that nurses have consistently reported that this has now cleared and he is pretty much back to baseline. I also explained to him that when he was confused, a psychologist independently evaluated him and felt that his confusion was such that he could not make informed decisions for himself allowing the power of employment law attorney to kick in and now that there does seem to be a clearing of his cognition. I will reconsult the psychologist to independently determine whether or not he has cleared sufficiently to be able to make his own decisions. He nodded in approval and understanding the system. MENTAL STATUS: He is alert and oriented. Mood does seem to be more euthymic. Affect is much more appropriate. There is no santos, hypomania or psychosis. There is no agitation or aggression. Memory does seem to be intact. PLAN: I will max out his dose of Namenda, bringing it to 10 mg b.i.d. while maintaining Exelon patch at 9.5. We will continue to monitor and support. Continue to engage in individual and saldana milieu activity, returning to the least restrictive environment when psychiatrically stable. ELIZABETH OLIVERA MD CM:PNTRANS [id number] ELIZABETH OLIVERA MD 02/09/19 1305 interface
--- NOTE | ~2019-02-04 | PR ---
[place], [place] PROGRESS NOTE NAME: [facility] UNIT #: [id number] ROOM: 314 DOCTOR: ELIZABETH OLIVERA MD BIRTHDATE: [birth year] DOS: 02/06/2019 CHIEF COMPLAINT: "I am just waiting for breakfast." SUMMARY OF THE VISIT: The patient was interviewed as he was sitting, waiting for his breakfast. He once again reported that he did not sleep well and is anxious to leave. He did remember that somebody from [place] whether it be his grandson or daughter was planning to come up into [place] to pick him up to take him back to [place] to be with them for a while. He seemed perplexed and bewildered, somewhat irritated by the whole situation, but willing to go along with family's request. Outwardly, he is tolerating the current medication regimen well without any apparent side effects. I see no tardive dyskinesia, extrapyramidal symptoms, sedation or somnolence. MENTAL STATUS: He is alert and oriented to person, place, and approximate to time. Mood does seem to be still labile. Affect at times is inappropriate. There is no true hypomania or santos. There is no gross psychosis. Short term memory has gaps. PLAN: I will augment Exelon patch with Namenda 5 mg a day and increase his Risperdal from 0.5 mg at bedtime to 0.5 mg twice a day. I will recheck a serum ammonia level on Saturday morning as his initial one was high at 53. Will engage in individual and saldana milieu activity with the plan to return to the least restrictive environment when psychiatrically stable. ELIZABETH OLIVERA MD CM:PNTRANS [id number] ELIZABETH OLIVERA MD 02/06/19 1435 interface
--- NOTE | ~2019-02-04 | PR ---
[place], [place] PROGRESS NOTE NAME: [facility] UNIT #: [id number] ROOM: 314 DOCTOR: ELIZABETH OLIVERA MD BIRTHDATE: [birth year] DOS: 02/10/2019 CHIEF COMPLAINT: "I just want to go home." SUMMARY OF THE VISIT: The patient was interviewed as he was sitting, getting ready for breakfast. He engaged readily in conversation. We discussed at length the fact that he was reevaluated by the psychologist, who noted that he has improved somewhat cognitively, but still feels that he needs more close supervision than living alone. I did discuss obtaining a second opinion to either verify this, further strengthening that suggestion or offering a second opinion that would be contrary to that and then looking to see what was the best option for aftercare. He thanked me and nodded in approval. MENTAL STATUS: He is alert and oriented with time gaps. Mood does seem to be more euthymic. Affect is more appropriate. There is no hypomania, santos or psychosis. Short term memory has gaps, but otherwise he is intact. PLAN: I will continue his current psychotropic regimen, continue to engage in individual and saldana milieu activity, returning to the least restrictive environment when psychiatrically stable. ELIZABETH OLIVERA MD CM:PNTRANS 8 [phone] ELIZABETH OLIVERA MD 02/10/192009 interface
--- NOTE | ~2019-02-04 | CON ---
[place], [place] REPORT OF CONSULTATION NAME: [facility] #: [id number] UNIT #: [id number] ROOM: 314 DOCTOR: NATHANAEL PHD ALESIA BIRTHDATE: [birth year] DOS: 02/09/2019 HISTORY OF PRESENT ILLNESS: The patient is an 78-year-old male referred by Dr. Ribeiro for competency evaluation. At the present time, the patient is on the 3rd floor at [facility]. He initially presented to the ED with chest tightness and hyperglycemia. I saw him on 02/04/2019 for competency evaluation. At which time, he appeared in my opinion to not be competent to make informed healthcare decisions. While on the medical floor, he became agitated and his healthcare power of assistant city attorney signed him into the Behavioral Health Unit. On the Behavioral Health Unit, his cognition has improved. He is currently living home alone. His . He has 3 children, who live out of state. 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 He denied alcohol, tobacco, and illegal drug use. PAST MEDICAL HISTORY: Coronary artery disease, cardiomegaly, atrial fibrillation, chronic kidney disease stage 3, congestive heart failure, dementia, diabetes, hypertension, anemia, obesity, thrombocytopenia, and gait disturbance. MEDICATIONS: Namenda, Exelon, Risperdal, vitamin D, Cephulac, Lipitor, Lantus SoloSTAR pen, Apresoline, Eliquis, Coreg, Amaryl, Bumex, and Humalog. The patient was sitting comfortably, in no apparent distress. He was awake, alert and oriented to person, place and time. He was very pleasant and cooperative with the evaluation. He could name Trdaysi as the president, but could not give any current events or name the next holiday is . Mood was euthymic and affect was appropriately wide ranging. There is no suicidal or homicidal ideation, plan, or intent. Speech was within normal limits with respect to rhythm, rate, volume, and tone. The patient appeared somewhat confused at times and demonstrated memory deficits in conversation. When discussing his medical history, he could only name diabetes as something he struggles. When one further prompted about cardiac issues, he was able to state that he had a bypass operation in the past. He states that he "takes a shot of 50 units", which he thinks is for his diabetes, but he is not sure. He could not tell me when or why he takes this medication. He was not able to provide any other details about his medications or medical history. Given his apparent improvement in cognition, I administered an alternate MoCA form on which he earned a 20/30 with an intact score being greater than or equal to 26. Mini trails B and bed copy were impaired. Clock drawing was noteworthy for incorrect hand placement. On tests of attention, the patient was able to repeat a minimum of 5 digits forward, but could not correctly repeat five digits backwards. He made an error on a test of vigilance. He was easily confused and lost track of instructions on serial 7 subtractions, but was able to correctly perform 4 correct subtractions without any cueing. With respect to language, he made a few minor errors on tests of repetition. He was able to provide 11 words in 1 minute on a test of verbal fluency. Naming was intact. Verbal abstraction was also intact. With respect to memory, the patient was able to recall 3/5 and 4/5 words on immediate recall. After a brief delay, the patient was not able to recall any words. He was able to recall two words with category cues and 2 words with multiple choices. Overall, the patient demonstrated executive [place], [place] REPORT OF CONSULTATION NAME: [facility] UNIT #: [id number] ROOM: [facility] DOCTOR: PHD ALESIA PAIGE BIRTHDATE: [birth year] functioning and memory deficits. His performance did improve from from when I saw him on 02/04/2019. Nevertheless, he was unable to adequately describe his medical history and the medications he takes. Given these deficits in memory, executive functioning, and his difficulty describing his medication regimen, it is my opinion that he is currently not competent to make informed healthcare decisions and may be harm to himself. Should he return to independent living without supportive services, he has limited insight into his abilities and his medical conditions. He would benefit from structure of having supportive services available to him. DIAGNOSES: Intermittent explosive disorder, Alzheimer's dementia. RECOMMENDATIONS: Although the patient's cognition has improved throughout his hospitalization, his continued impairment in memory and executive functioning will negatively affect his decision making and it is my opinion that he will continue to need assistance for his medical decision making and all healthcare decisions should be deferred to his healthcare power of assistant city attorney. Thank you very much for this consult. Brigette Paige, PhD CM:CONSTR:REPORT OF CONSULTATION 1623 02/10/19 1337 interface
--- NOTE | 2019-02-04 16:24 | NUR ---
PARISH BECKETT a 78 year old M admitted via wheel chair from the ADMITTING as a emergency 72 hr. hold admission. Arrived on unit at 1624. ALLERGIES: IVP DYE. Vital signs are: 97.3-74-20 147/88. The client signed the following forms with stated understanding: Authorization For The Release of Medical Information, Clothing List, Consent to Voluntary Admission and Hospitalization, Consent and Release Forms/Receipt of Rights, Acknowledgement of Advance Directive Information, Behavioral Health Consent Form, and Informed Consent of Medications. Admitted under the services of Dr. JOSELIN BARRETO,[facility]. A search was conducted and hazardous articles were removed. Client was oriented to the unit. OMER HENRY
[~2019-02-04 16:32] MED LIST changes: +RISPERIDONE0.5 MG PO
--- NOTE | 2019-02-04 16:46 | NUR ---
DR. ORELLANA NOTIFIED OF NEW ADMISSION, MEDICATIONS UPDATED AND DIAGNOSIS FOR REVIEW. PATIENT WILL BE UNDER THE CARE OF DR. CHAWLA.
[2019-02-04 16:57] VITALS: BP 147/88
[2019-02-04 17:00] VITALS: BP 147/88
[2019-02-04 19:19] VITALS: BP 147/88
[2019-02-04 20:09] VITALS: BP 147/88
--- NOTE | 2019-02-04 20:30 | NUR ---
Called Dr Ribeiro with a question regarding depakote order and patient's significant cardiac history. Dr. Ribeiro said ok to give depakote.
--- NOTE | 2019-02-04 22:35 | NUR ---
Called Dr. Tavera regarding insulin sliding scale profied to start 02/05 in am and patient's 2100 bedside glucose being 185. Asked doctor if he wanted him to have dose of insulin tonight. Dr. Tavera said yes to give it. Called pharmacy to have insulin sliding scale reprofiled for starting tonight.
--- NOTE | 2019-02-04 22:40 | NUR ---
Patient alert and oriented x3 with slight periods of confusion noted at times. Some ST memory noted. Patient denies hallucinations. No signs of any responding to internal stimuli at this time. Patient pleasant and cooperative. Patient compliant with medications without any difficulty. Provided 1:1 for emotional support. Patient in diningroom for snack but was isolative to self. Patient ambulated with steady gait back to his room. Q 15 minute safety checks continued and maintained. Plan to continue to encourage medication compliance and continue to provide for emotional support. Also continue to encourage interaction with staff and other patients. See [facility] flowsheet for further documentation.
--- NOTE | 2019-02-05 00:41 | NUR ---
24 HR chart check completed.
--- NOTE | 2019-02-05 05:38 | NUR ---
Patient slept approx. 6 1/2 hours throughout shift. Q 15 minute safety checks continued and maintained.
[2019-02-05 07:39] LABS: ALBUMIN 3.3 gm/dl (3.1-4.5); CREATININE 1.62 mg/dL (0.70-1.30); POTASSIUM 3.7 mmol/L (3.5-5.1)
[2019-02-05 07:46] LABS: THYROID STIM HORMONE (HS) 1.86 uIU/ml (0.358-4.75)
--- NOTE | 2019-02-05 09:30 | NUR ---
Treatment Plan meeting with Dr. Ribeiro RN, AT, and Construction Analyst. Plan for discharge is unclear at this time. Pt. has a Power of Childcare Center Administrator who lives out of state. Will need to contact family to discuss discharge plans. Pt. has active Open case with [facility] Prote[facility]. Spoke with Fauzia Brizuela this morning.
[2019-02-05 09:54] VITALS: BP 136/63
--- NOTE | 2019-02-05 11:13 | NUR ---
Spoke with pt's son/DPOAHC Brenden Wilcox states that the discharge plan is for pt to move to [place] and live with his daughter Kelley. Pt's grandson Carl will be at [facility] on Saturday, 02/09, for pt to be discharged into his care. Carl will then drive pt to [place]. Informed Dr Ribeiro of this plan and requested date for discharge.
--- NOTE | 2019-02-05 11:41 | NUR ---
AM GROUP/WORD FIND/ASSESSMENT PT ASSESSMENT COMPLETED AND GOALS SET. PT ATTENDED MORNING GROUP THERAPY AND PARTICIPATED BY READING THE NEWSPAPER AND OBSERVING PEERS. PT EXHIBITED NO AGITATION WHILE IN GROUP.
--- NOTE | 2019-02-05 14:30 | NUR ---
PHYSICAL THERAPY Physical therapy screen completed. Pt is still independent with ambulation and all ADLs per nursing staff, however is very confused and cognitively impaired. No PT needs at this time. thank you Katy Gomez, PT, DPT
--- NOTE | 2019-02-05 14:32 | NUR ---
Occupational Therapy evaluation completed 02/03/19 with no further OT indicated but 24hr supervision and assist d/t poor memory recommended. Patient transfered to [facility] Behavior[facility] Health Unit 02/04/19. OT screen completed and patient is able to perform self care and functional mobility with supervision on this locked unit. Discharge OT referral at this time. Diamond Luke OTR/danielle
--- NOTE | 2019-02-05 15:42 | NUR ---
PM GROUP/OWLS PT WAS PRESENT FOR AFTERNOON GROUP THERAPY BUT REFUSED TO PARTICIPATE IN ANY ACTIVITY. AT THE END OF GROUP PT WAS ASKED, "HOW ARE YOU DOING, ED?" PT STATED, "I'M GETTING DEPRESSED SITTING HERE WITH NOTHING TO DO." PT WAS REMINDED THAT I HAD ALL KINDS OF ACTIVITIES FOR HIM TO DO. PT STATED, "NO, I DON'T WANT TO DO ANY OF THAT STUFF."
--- NOTE | 2019-02-05 16:34 | NUR ---
Spoke with Pt. Daughter Britta via telephone. Her Son will be taking a flight into [place] to take patient to [place]. She is unable to secure a sooner flight. Pt. had visited today and was requesting information. Daughter states that he called her and her Brother and they do not want information given to patient route process administrator. He is welcome to visit and pray with patient. Also is Pt. Son Delio visits he is permitted to visit but the visits must be supervised due to past incidents of Delio taking advantage of patient and he would only upset patient.
--- NOTE | 2019-02-05 18:31 | NUR ---
A&O X1. STABLE MOOD. DENIES HALLUCINATIONS, DELUSIONS, SI, AND HI. INTERACTIVE, PARTICIPATING. MEDICATION COMPLIANT WITHOUT COMPLICATION. EDUCATION PROVIDED WITH VERBALIZATION OF UNDERSTANDING. SEE [facility] FLOWSHEET FOR SPECIFIC MONITORING.
--- NOTE | 2019-02-05 18:40 | NUR ---
PITA FLORES AND ADRIANA IN FOR VISIT. VISIT IS SUPERVISED BY THIS NURSE. EXPLAINED TO BOTH VISITORS RELEASE OF ANY INFORMATION WILL NEED TO BE APPROVED BY THE POA. BOTH VISITORS VERBALIZED UNDERSTANDING.
[2019-02-05 19:34] VITALS: BP 144/70
--- NOTE | 2019-02-05 22:44 | NUR ---
24 HR chart check completed.
--- NOTE | 2019-02-05 23:38 | NUR ---
P-CONFUSION I-ENCOURAGE VENTILATION OF FEELINGS & PROVIDE EMOTIONAL SUPPORT, ADMINISTER BEDICATIONS, MONITOR SLEEP R-MOOD IS STABLE. PT SAT IN THE DINING ROOM TALKING TO STAFF. ALERT & ORIENTED TO PERSON, PLACE BUT NOT TIME OR SITUATION. STATED HE IS HERE BECAUSE HIS BLOOD SUGARS ARE HIGH. SHORT TERM & AIR EXPORT COORDINATOR MEMORY DEFICITS WITH CONFUSION AT TIMES. NO DELUSIONS VOICED. NO SI OR HI. REVIEWED MEDICATIONS WITH PT. HE WAS COMPLIANT BUT STATED, "I'M NOT GONNA REMEMBER ANY OF THAT ANYWAY". HS BEDSIDE GLUCOSE 320. INDEPENDENT WITH AMBULATION. P-CONTINUE TO MONITOR & PROVIDE PHYSICAL ASSISTANCE & EMOTIONAL SUPPORT NEEDED.
--- NOTE | 2019-02-06 06:47 | NUR ---
AM BEDSIDE GLUCOSE 158
[2019-02-06 07:50] VITALS: BP 119/66
--- NOTE | 2019-02-06 07:54 | NUR ---
Patient resting quietly with no c/o discomfort. Respirations easy and regular. Vital signs stable. No overt distress. GIVENS,JJ
--- NOTE | 2019-02-06 08:15 | NUR ---
Treatment Plan meeting with Dr. Ribeiro, RN, AT, and Limb Driver. Plan for discharge . Pt. will discharge to care of Family who is taking Patient to [place].
--- NOTE | 2019-02-06 08:45 | NUR ---
DR ROBERTS ON UNIT TO ASSESS PT
--- NOTE | 2019-02-06 10:56 | NUR ---
PT C/O EYES BEING BLURRY. [facility] BP 138/90 PULSE 72. DENIED HEADACHE, NAUSEA, AND CHEST PAIN. CALLED PLACED TO DR BRUCE AND DR SHELTON ON PT CONDITION. DR STATED HE WOULD BE DOWN TO ASSESS PT.
--- NOTE | 2019-02-06 11:39 | NUR ---
AM GROUP PT ATTENDED MORNING GROUP THERAPY AND PARTICIPATED BY READING THE NEWSPAPER AND LISTENING TO MUSIC. PT EXHIBITED NO AGITATION DURING GROUP.
--- NOTE | 2019-02-06 14:00 | NUR ---
P: CONFUSION I: ATTEMPTED TO REORIENT PT. PROVIDED 1:1 FOR THERAPEUTIC COMMUNICATION. ENCOURAGE MEDICATION COMPLIANCE. MONITOR BEHAVIORS WITH Q15 MINUTE SAFETY CHECKS. ENCOURAGED PT TO ATTEND GROUP. R: PT REMAINS CONFUSED P: CONTINUE TO REORIENT PT NEEDED, PROVIDE 1:1 FOR THERAPEUTIC COMMUNICATION, ENCOURAGE MEDICATION COMPLIANCE, PROVIDE MEDICATION EDUCATION NEEDED, MONITOR BEHAVIORS WITH Q15 MINUTE SAFETY CHECKS. CONTINUE TO ENCOURAGE ATTENDANCE AND PARTICIPATION IN GROUP.
--- NOTE | 2019-02-06 15:36 | NUR ---
PM GROUP/MOVIE PT ATTENDED AFTERNOON GROUP THERAPY AND WATCHED THE MOVIE FOR A SHORT TIME BUT LEFT FOR ABOUT AN HOUR. PT RETURNED AT THE END OF GROUP
[2019-02-06 20:00] VITALS: BP 120/80
--- NOTE | 2019-02-06 21:18 | NUR ---
24 HR chart check completed.
--- NOTE | 2019-02-06 21:43 | NUR ---
P-CONFUSION I-ENCOURAGE VENTILATION OF FEELINGS & PROVIDE EMOTIONAL SUPPORT, ADMINISTER MEDICATIONS, MONITOR SLEEP R-MOOD IS STABLE. SAT IN THE DINING ROOM QUIETLY WATCHING TV & EATING HIS SNACK. ALERT & ORIENTED TO PERSON, PLACE, TIME & SOMEWHAT SITUATION. CONTINUES TO STATE THAT HE THOUGHT HE WAS HERE BECAUSE HIS BLOOD SUGARS ARE HIGH. SHORT TERM MEMORY DEFICITS WITH CONFUSION AT TIMES. NO DELUSIONS VOICED. NO SI OR HI. HS BEDSIDE GLUCOSE 199. INDEPENDENT WITH AMBULATION. P-CONTINUE TO MONITOR & PROVIDE PHYSICAL ASSISTANCE & EMOTIONAL SUPPORT NEEDED.
--- NOTE | 2019-02-07 06:19 | NUR ---
PT HAS SLEPT QUIETLY PAST 2144. AM BEDSIDE GLUCOSE 138
--- NOTE | 2019-02-07 07:26 | NUR ---
Patient resting quietly with no c/o discomfort. Respirations easy and regular. Vital signs stable. No overt distress. GIVENS,JJ
[2019-02-07 07:58] VITALS: BP 125/71
--- NOTE | 2019-02-07 10:23 | NUR ---
DR ROBERTS ON UNIT TO ASSESS PT.
--- NOTE | 2019-02-07 11:07 | NUR ---
P: ALERT AND ORIENTED X3. CONFUSED TO WHY HE IS HE WAS HERE. I: PROVIDED 1:1 FOR THERAPEUTIC COMMUNICATION. ENCOURAGE MEDICATION COMPLIANCE. MONITOR BEHAVIORS WITH Q15 MINUTE SAFETY CHECKS. ENCOURAGED PT TO ATTEND GROUP. R: PT REMAINS CONFUSED TO WHY HE IS HERE. DENIES HALLUCINATIONS AND SI/HI. NO DELUSIONS NOTED. APPETITE GOOD. ATTENDED GROUP, HOWEVER WAS WITHDRAWN TO SELF. GAIT STEADY. P: CONTINUE TO REORIENT PT NEEDED, PROVIDE 1:1 FOR THERAPEUTIC COMMUNICATION, ENCOURAGE MEDICATION COMPLIANCE, PROVIDE MEDICATION EDUCATION NEEDED, MONITOR BEHAVIORS WITH Q15 MINUTE SAFETY CHECKS. CONTINUE TO ENCOURAGE ATTENDANCE AND PARTICIPATION IN GROUP. SEE [facility] FLOWSHEET FOR SPECIFIC MONITORING.
--- NOTE | 2019-02-07 12:13 | NUR ---
AM GROUP PT ATTENDED INTERMITTENTLY AND WOULD OBSERVE GROUP AND WATCH FOOTBALL. PT DID NOT BECOME AGITATED AT THIS TIME AND WILL CONTINUE TO BE ENCOURAGED TO ATTEND AND PARTICIPATE IN FUTURE GROUP SESSIONS TO BEST OF PT ABILITY.
--- NOTE | 2019-02-07 15:37 | NUR ---
PM GROUP/LEISURE SKILLS PT ATTENDED AND PARTICIPATED BY WATCHING [employer]. PT DID NOT EXPRESS ANY AGITATION AT THIS TIME AND WILL CONTINUE TO ATTEND AND PARTICIPATE TO BEST OF PT ABILITY.
[2019-02-07 19:59] VITALS: BP 143/70
--- NOTE | 2019-02-07 20:50 | NUR ---
24 HR chart check completed.
--- NOTE | 2019-02-07 21:38 | NUR ---
P-CONFUSION I-ENCOURAGE VENTILATION OF FEELINGS & PROVIDE EMOTIONAL SUPPORT, ADMINISTER MEDICATIONS, MONITOR SLEEP R-MOOD IS STABLE. SAT IN THE DINING ROOM QUIETLY WATCHING TV & EATING HIS SNACK. ALERT & ORIENTED TO PERSON, PLACE & TIME. CONTINUES TO STATE THAT HE THINKS HE IS HERE FOR HIS BLOOD SUGARS. SHORT TERM MEMORY DEFICITS WITH CONFUSION AT TIMES. PLEASANT INTERACTIONS WITH STAFF. KEEPS TO HIMSELF WHILE SITTING IN THE DINING ROOM. NO SI OR HI. NO DELUSIONAL STATEMENTS. HS BEDSIDE GLUCOSE 169. INDEPENDENT WITH AMBULATION. COMPLIANT WITH MEDS. P-CONTINUE TO MONITOR & PROVIDE PHYSICAL ASSISTANCE & EMOTIONAL SUPPORT NEEDED.
--- NOTE | 2019-02-08 05:22 | NUR ---
PT HAS SLEPT PAST 2144
--- NOTE | 2019-02-08 06:32 | NUR ---
AM BEDSIDE GLUCOSE 169
[2019-02-08 07:44] VITALS: BP 134/74
--- NOTE | 2019-02-08 09:06 | NUR ---
Patient resting quietly with no c/o discomfort. Respirations easy and regular. Vital signs stable. No overt distress. GIVENS,JJ
--- NOTE | 2019-02-08 12:40 | NUR ---
AM GROUP/AFFIRMATIONS/MUSIC PT IN ATTENDANCE BUT CHOSE NOT TO PARTICIPATE OTHER THAN WATCHING HYMN VIDEO ON TV. PT DID NOT EXPRESS ANY AGITATION AT THIS TIME.
[2019-02-08 20:00] VITALS: BP 138/72
--- NOTE | 2019-02-08 23:23 | NUR ---
24 HR chart check completed.
--- NOTE | 2019-02-08 23:40 | NUR ---
P-SHORT TERM MEMORY GAPS I-ENCOURAGE VENTILATION OF FEELINGS & PROVIDE EMOTIONAL SUPPORT, ADMINISTER MEDICATIONS, MONITOR SLEEP R-MOOD IS STABLE. SAT IN THE DINING ROOM QUIETLY WATCHING TV & EATING HIS SNACK. ALERT & ORIENTED TO PERSON, PLACE & TIME WITH SOME SHORT TERM MEMORY GAPS. INCREASED VERBAL INTERACTIONS WITH STAFF EVEN JOKING AROUND AT TIMES. STATED THAT HE IS HOPING TO GO HOME TOMORROW BECAUSE HE HAS ALOT OF THINGS HE NEEDS TO DO AROUND HIS HOUSE. STATED THAT HIS SON MARK COULD PROBABLY COME & GET HIM. HS BEDSIDE GLUCOSE 169. INDEPENDENT WITH AMBULATION. COMPLIANT WITH MEDS. P-CONTINUE TO MONITOR & PROVIDE PHYSICAL ASSISTANCE & EMOTIONAL SUPPORT NEEDED.
--- NOTE | 2019-02-09 05:02 | NUR ---
PT HAS SLEPT PAST 2144
--- NOTE | 2019-02-09 06:41 | NUR ---
AM BEDSIDE GLUCOSE 187
[2019-02-09 08:03] VITALS: BP 131/68
--- NOTE | 2019-02-09 08:43 | NUR ---
Treatment Plan meeting was held with Dr. Ribeiro, RN, AT, SW and Cda Teacher. Plan for discharge is not definate at this time. Possible discharge to home pending Competency eval by Brigette Paige. If Pt. is Competent he will discharge home. If Pt. remains incompetent he will remain hospitalized until family picks him up on for discharge with family and Pt. will go to [place] with Grandson. Will Follow.
--- NOTE | 2019-02-09 09:15 | NUR ---
ON UNIT TO ASSESS PT, UPDATE PROVIDED.
--- NOTE | 2019-02-09 10:09 | NUR ---
NO ADVERSE MOODS OR BEHAVIORS NOTED AT THIS TIME. PT ALERT TO PERSON, PLACE, TIME AND SITUATION. PT MED COMPLIANT WITHOUT DIFFICULTY, MED EDUCATION PROVIDED. PT CALM, MOOD IS STABLE. PT PLEASANT AND COOPERATIVE WITH STAFF. NO HALLUCINATIONS OR DELUSIONS NOTED. PT DENIES ANY SUICIDAL THOUGHTS, VERBALLY CONTRACTS FOR SAFETY IF SUCH THOUGHTS ARISE. PT AMBULATORY THROUGHOUT UNIT, GAIT STEADY. PT CONTINENT OF BOWEL AND BLADDER. PLAN IS TO MONITOR PT BEHAVIORS ON Q15 MIN SAFETY CHECKS, ENCOURAGE MED COMPLIANCE AND PROVIDE MED EDUCATION, PROVIDE EMOTIONAL SUPPORT AND 1:1 FOR PT TO VOICE FEELINGS.
--- NOTE | 2019-02-09 11:01 | NUR ---
PT AT THE NURSES STATION STATING TO STAFF THAT HE IS BEING HELD AGAINST HIS WILL. THIS NURSE ADVISED PT THAT HE WAS DEEMED INCOMPETANT BY DR. HUFFMAN AND HE IS ADMITTED HERE PER THE PERMISSION FROM HIS POA. ADVISED THAT DR OLIVERA HAS ORDERED A RE-EVALUATION OF COMPETANCY AND PENDING THAT OUTCOME WILL DEPEND ON HIS DISCHARGE PLAN. ADVSIED THAT IF HE IS FOUND TO BE COMPETANT WE WILL WORK ON DISCHARGING HIM HOME AND IF HE IS DEEMED INCOMPETANT THE PLANS FOR DISCHARGE WILL BE BASED ON HIS POA REQUESTS. ADVISED THAT DR. HUFFMAN WILL SEE HIM TODAY SOMETIME. PT RETURNED TO GROUP AT THIS TIME.
--- NOTE | 2019-02-09 11:36 | NUR ---
AM GROUP PT WAS PRESENT AT THE START OF MORNING GROUP THERAPY AND DID READ THE NEWSPAPER BEFORE LEAVING THE DAYROOM. PT DID NOT RETURN
--- NOTE | 2019-02-09 12:45 | NUR ---
DR. HUFFMAN ON UNIT TO ASSESS PT, UPDATE PROVIDED.
--- NOTE | 2019-02-09 15:43 | NUR ---
PM GROUP PT DID NOT ATTEND AFTERNOON GROUP THERAPY. PT WAS IN HIS ROOM OR SITTING IN A CHAIR IN THE HALLWAY.
[2019-02-09 19:29] VITALS: BP 137/62
--- NOTE | 2019-02-09 20:37 | NUR ---
EVENING GROUP/HUMOR/FOOTBALL PT CHOSE TO NOT ATTEND GROUP BUT DID HYGIENE AT THIS TIME. THIS STAFF FINISHED WITH ACTIVTY AND PT WALKING TO DAYROOM STATING "I FEEL BETTER, I JUST BRUSHED MY TEETH"
--- NOTE | 2019-02-09 21:52 | NUR ---
Patient alert and oriented x3 with slight periods of confusion noted at times. Some ST memory noted. Patient denies hallucinations. No signs of any responding to internal stimuli at this time. Patient pleasant and cooperative. Patient compliant with medications without any difficulty. Provided 1:1 for emotional support. Patient in diningroom for snack,was interacting with other patients while watching football on TV. Patient ambulated with steady gait back to his room. Q 15 minute safety checks continued and maintained. Plan to continue to encourage medication compliance and continue to provide for emotional support. Also continue to encourage interaction with staff and other patients. See [facility] flowsheet for further documentation. =
--- NOTE | 2019-02-10 00:09 | NUR ---
24 HR chart check completed.
--- NOTE | 2019-02-10 05:25 | NUR ---
PT SLEPT FROM 2214 TO CURRENT, WITH 1 AWAKENING FOR TOILETING NEEDS
[2019-02-10 07:43] VITALS: BP 124/80
--- NOTE | 2019-02-10 08:15 | NUR ---
Treatment Plan meeting with Dr. Ribeiro, RN, AT, and [employer]. According to Dr. Ribeiro, Pt. is requesting to leave. Dr. Ribeiro has requested Second Opinion of Dr. Oscar Stoddard concerning Competency. Daughter is still working on Flight for her Son for with his Arrival at 4:00 and he was to take Pt. back to [place] with hime. Will wait on Oscar Stoddard to see patient to determine discharge Plan.
--- NOTE | 2019-02-10 08:47 | NUR ---
DR. ROSALES NOTIFIED OF CONSULT FOR COMPETENCY.
--- NOTE | 2019-02-10 10:05 | NUR ---
DR. GOODMAN AND TEAM ON FLOOR TO ASSESS PT, UPDATE PROVIDED.
--- NOTE | 2019-02-10 10:44 | NUR ---
NO ADVERSE MOODS OR BEHAVIORS NOTED THIS SHIFT. ALERT AND ORIENTED X3. MOOD STABLE. PT STATES "I JUST REALLY WISH I COULD GET HOME". DENIES SI/HI, HALLUCINATIONS OR PAIN. NO S/S OF INTERACTING WITH INTERNAL STIMULI. NO DELUSIONAL THOUGHT PROCESS NOTED. NO S/S OF DISTRESS NOTED. RESPS EVEN AND UNLABORED ON ROOM AIR. EATING AND DRINKING ADEQUATELY. GAIT STEADY WHILE AMBULATING. MAKES NEEDS KNOWN. INTERACTING WITH PEERS AND STAFF. ATTENDING AND PARTICIPATING IN GROUP THERAPIES. MEDICATION COMPLIANT WITH EDUCATION ON EACH. Q15 MINUTE CHECKS MAINTAINED FOR SAFETY.
--- NOTE | 2019-02-10 10:45 | NUR ---
Left a voicemail message for pt's daughter Kelley requesting a return call.
--- NOTE | 2019-02-10 11:38 | NUR ---
AM GROUP/SOCIAL SKILLS PT WAS IN AND OUT OF THE DAYROOM AND DID NOT PARTICIPATE IN THE GROUP ACTIVITIES. PT SAT IN A CHAIR ALONE AND WHEN INVITED BY THE NURSING STUDENTS TO SIT AT THE TABLE WITH THEM, DECLINED. PT EXHIBITED NO AGITATION WHILE IN GROUP
--- NOTE | 2019-02-10 13:30 | NUR ---
Spoke with pt's daughter Britta by phone. Expressed concern to Britta that pt will not be willing to go with his grandson Carl back to [place]. Britta stated that when she speaks with pt over the phone, pt will at times be agreeable to the move and at other times he is belligerent to her. Britta stated that pt must move to [place] and that she continually tells him this. When asked if there is a plan B, Britta stated that there is not. Britta requested confirmation that pt remains incompetent and this proposal manager writer confirmed that at this time pt is incompetent. Britta stated that she will have her aunt and uncle available to assist Carl in convincing pt to go to [place].
--- NOTE | 2019-02-10 13:43 | NUR ---
Shift chart check completed.
--- NOTE | 2019-02-10 15:39 | NUR ---
PM GROUP PT WAS PRESENT FOR AFTERNOON GROUP THERAPY BUT CHOSE NOT TO PARTICIPATE IN ANY ACTIVITY OFFERED. PT SAT QUIETLY IN A CHAIR AND OBSERVED OTHERS. PT EXHIBITED NO AGITATION OR AGGRESSION WHILE IN GROUP
--- NOTE | 2019-02-10 19:50 | NUR ---
NOTIFIED DR IZAGUIRRE OF CLIENTS ADMISSION. UPDATED ON CLIENTS CONDITION
[2019-02-10 20:03] VITALS: BP 130/78
--- NOTE | 2019-02-10 22:54 | NUR ---
Patient alert and oriented x3 with slight periods of confusion noted at times. Some ST memory noted. Patient denies hallucinations. No signs of any responding to internal stimuli at this time. Patient pleasant and cooperative. Patient compliant with medications without any difficulty. Provided 1:1 for emotional support. Patient was isolative in his room after snacks. Patient ambulated with steady gait back to his room. Q 15 minute safety checks continued and maintained. Plan to continue to encourage medication compliance and continue to provide for emotional support. Also continue to encourage interaction with staff and other patients. See [facility] flowsheet for further documentation.
--- NOTE | 2019-02-11 00:11 | NUR ---
24 HR chart check completed.
--- NOTE | 2019-02-11 05:22 | NUR ---
Patient slept approx. 8 hours throughout shift. Q 15 minute safety checks continued and maintained.
--- NOTE | 2019-02-11 07:48 | NUR ---
DR. GOODMAN AND DR. ORELLANA ON FLOOR TO ASSESS PT, UPDATE PROVIDED.
[2019-02-11 07:54] VITALS: BP 121/62
[2019-02-11] MEDS ORDERED: LACTULOSE20 GM/30 M PO (09:04)
[2019-02-11] MEDS ORDERED: RISPERIDONE0.5 MG PO (09:04)
[2019-02-11] MEDS ORDERED: RIVASTIGMINE1 EAC1 T (09:04)
[2019-02-11] MEDS ORDERED: MEMANTINE HCL10 MG PO (09:04)
--- NOTE | 2019-02-11 11:42 | NUR ---
AM GROUP PT CHOSE NOT TO ATTEND MORNING GROUP THERAPY. PT STAYED IN QUIET ROOM
--- NOTE | 2019-02-11 14:56 | NUR ---
This advertising copy writer was present when Clari LANCASTER confirmed to pt that his discharge would be tomorrow. Pt shared about his family wanting him to move to [place]. Clari pointed out the positives to pt about being with his family for the upcoming holidays. This advertising copy writer confirmed to pt that it would be pt's grandson Carl who will transport pt from the hospital. Pt was pleasant throughout conversation.
--- NOTE | 2019-02-11 15:24 | NUR ---
P- ISOLATIVE TO SELF. PT STATES "I AM SAD, I JUST WANT TO BE ABLE TO GO HOME". SHORT TERM MEMORY GAPS NOTED. I- ASSESS MOOD, ORIENTATION, SI/HI, HALLUCINATIONS, DELUSIONS OR PAIN. PROVIDE MEDICATIONS ON TIME WITH EDUCATION ON EACH. 1:1 THERAPEUTIC INTERACTION WITH EMOTIONAL SUPPORT PROVIDED. REORIENT WITH MEMORY GAPS. ENCOURAGE INTERACTION WITH PEERS AND STAFF. ENCOURAGE TO ATTEND/PARTICIPATE IN GROUP THERAPIES FOR EMOTIONAL SUPPORT AND SOCIALIZATION. R- ALERT AND ORIENTED X3. SHORT TERM MEMORY DEFICITS NOTED, REORIENTATION EFFECTIVE. MEDICATION COMPLIANT. DENIES SI/HI, HALLUCINATIONS, OR PAIN. NO S/S OF INTERACTING WITH INTERNAL STIMULI. NO DELUSIONAL THOUGHT PROCESS NOTED. NO S/S OF DISTRESS NOTED. REPS EVEN AND UNLABORED ON ROOM AIR. PT STATES THAT HE FEELS SAD BECAUSE HE IS READY TO GO HOME. PLEASANT INTERACTION. INTERACTS WITH PEERS AND STAFF. WILL ATTEND/PARTICIPATE IN GROUP THERAPY FOR A SHORT AMOUNT OF TIME AND THEN GO INTO THE QUIET ROOM BY HIMSELF. 1:1 INTERACTION EFFECTIVE. EATING AND DRINKING ADEQUATELY. GAIT STEADY WHILE AMBULATING. MAKES NEEDS KNOWN. P- ASSESS MOOD, ORIENTATION, SI/HI, HALLUCINATIONS, DELUSIONS OR PAIN EVERY SHIFT. PROVIDE MEDICATIONS ON TIME WITH EDUCATION ON EACH. ENCOURAGE TO ATTEND/PARTICIPATE IN GROUP THERAPIES FOR EMOTIONAL SUPPORT AND SOCIALIZATION. 1:1 THERAPEUTIC INTERACTION PROVIDED NECESSARY. ENCOURAGE INTERACTION WITH PEERS AND STAFF. Q15 MINUTE CHECKS MAINTAINED FOR SAFETY.
--- NOTE | 2019-02-11 15:37 | NUR ---
PM GROUP PT COMES AND GOES AT GROUP TIME. PT CHOOSES NOT TO PARTICIPATE AND WILL SIT QUIETLY AND OBSERVE. PT EXHIBITS NO AGITATION OR AGGRESSION WHILE IN THE DAYROOM
--- NOTE | 2019-02-11 15:42 | NUR ---
Shift chart check completed.
[2019-02-11 19:41] VITALS: BP 132/60
--- NOTE | 2019-02-11 23:48 | NUR ---
The patient has no complaints and is resting comfortably. OMER HENRY
--- NOTE | 2019-02-12 02:08 | NUR ---
PT IS STABLE, NO ADVERSE MOODS OR BEHAVIORS NOTED THIS SHIFT. PT PLEASANT, COOPERATIVE WITH ASSESSMENT, STATES HIS READINESS TO LEAVE HERE TOMORROW. PT ALERT, ORIENTED X4 AT THIS TIME. NO C/O OF DISCOMFORT. PT DID NOT LEAVE ROOM FOR HS SNACK, STATES HE WANTS TO GO TO BED.
--- NOTE | 2019-02-12 02:18 | NUR ---
24 HR chart check completed.
--- NOTE | 2019-02-12 05:59 | NUR ---
The patient has no complaints and is resting comfortably. PT SLEPT GREATER THAN 6 HOURS THIS SHIFT WITH BRIEF AWAKENINGS TO SIT IN CHAIR AT FOOT OF BED. OMER HENRY
--- NOTE | 2019-02-12 07:50 | NUR ---
DR. GOODMAN AND DR. ORELLANA ON FLOOR TO ASSESS PT, UPDATE PROVIDED. INFORMED OF DISCHARGE TODAY.
[2019-02-12 08:00] VITALS: BP 140/68
--- NOTE | 2019-02-12 09:46 | NUR ---
NO ADVERSE MOODS OR BEHAVIORS NOTED THIS SHIFT. ALERT AND ORIENTED X3. MOOD STABLE AND PLEASANT, ORGANIZED AND GOAL DIRECTED. PT EXPRESSING BEING EXCITED TO FINALLY GET HOME. DENIES SI/HI, HALLUCINATIONS OR PAIN. NO S/S OF INTERACTING WITH INERNAL STIMULI. NO DELUSIONAL THOUGHT PROCESS NOTED. NO S/S OF DISTRESS NOTED. RESPS EVEN AND UNLABORED ON ROOM AIR. MEDICATION COMPLIANT WITH EDUCATION PROVIDED ON EACH MED. GAIT STEADY WHILE AMBULATING. MAKES NEEDS KNOWN. EATING AND DRINKING ADEQUATELY. INTERACTIVE WITH PEERS AND STAFF. PARTICIPATING IN ACTIVITIES. Q15 MINUTE CHECKS MAINTAINED FOR SAFETY.
[2019-02-12] MEDS ORDERED: VITAMIN D5000 UNI1 PO (10:04)
--- NOTE | 2019-02-12 10:09 | NUR ---
Pt is very happy to be discharging today. Pt was joking with staff and very pleasant.
--- NOTE | 2019-02-12 10:13 | NUR ---
Notified Fauzia Brizuela of [facility] that pt was found incompetent. Also informed Fauzia that pt is discharging today and being taken to [place] to reside with his daughter Britta Benavidez.
--- NOTE | 2019-02-12 10:15 | NUR ---
Patient is discharging today with the plan that his grandson will transport pt to [place] where pt will reside with his daughter Britta Benavidez and her family. Follow-ups will be scheduled in [place] by pt's daughter Britta. While pt was at [facility], he did not display any inappropriate behaviors. Memory loss was noted in pt. He was pleasant and cooperative but did tend to isolate. Pt minimally participated in programming.
--- NOTE | 2019-02-12 15:13 | NUR ---
Shift chart check completed.
--- NOTE | 2019-02-12 17:19 | NUR ---
PATIENT OFF THE FLOOR AT THIS TIME VIA WHEELCHAIR, ESCORTED BY MENTAL HEALTH SPECIALIST AND FAMILY. PATIENTS BELONINGS, LOCKBOX, AND DISCHARGE INFORMATION GIVEN TO PATIENT/FAMILY. INFORMED OF ALL PATIENTS SCRIPTS IN PACKET AND EXPLAINED DISCHARGE MEDICATION ADMINISTRATION. PATIENT PLEASANT, ALERT AND ORIENTED X3, NO S/S OF DISTRESS NOTED, RESPS EVEN AND UNLABORED ON ROOM AIR.
== END 2019-02-12 17:19 | disposition home or self-care (01) | DRG 883 ==
LOC: 3N 16:32
PROVIDERS: ADMIT Psychiatry & Neurology Psychiatry
DX: F63.81 Intermittent explosive disorder (principal); I50.42 Chronic combined systolic (congestive) and diastolic (congestive) heart failure; I25.810 Atherosclerosis of coronary artery bypass graft(s) without angina pectoris; I13.0 Hypertensive heart and chronic kidney disease with heart failure and stage 1 through stage 4 chronic kidney disease, or unspecified chronic kidney disease; E66.9 Obesity, unspecified; E11.22 Type 2 diabetes mellitus with diabetic chronic kidney disease; N18.3 Chronic kidney disease, stage 3 (moderate); I48.20 Chronic atrial fibrillation, unspecified; D64.9 Anemia, unspecified; E11.65 Type 2 diabetes mellitus with hyperglycemia; G30.9 Alzheimer's disease, unspecified; F02.80 Dementia in other diseases classified elsewhere, unspecified severity, without behavioral disturbance, psychotic disturbance, mood disturbance, and anxiety; D69.6 Thrombocytopenia, unspecified; Z95.810 Presence of automatic (implantable) cardiac defibrillator; Z79.4 Long term (current) use of insulin; Z91.041 Radiographic dye allergy status; I25.2 Old myocardial infarction; Z95.2 Presence of prosthetic heart valve; Z87.442 Personal history of urinary calculi; Z95.1 Presence of aortocoronary bypass graft; Z87.891 Personal history of nicotine dependence; Z81.1 Family history of alcohol abuse and dependence; Z84.89 Family history of other specified conditions; Z79.899 Other long term (current) drug therapy; Z68.36 Body mass index [BMI] 36.0-36.9, adult

== ENCOUNTER 2020-02-07 15:02 | Inpatient (IN) | payer MEDICARE ==
[2020-02-07] VITALS (8 sets, daily range): BP systolic 92–127; BP diastolic 48–63
[~2020-02-07] VITALS: Ht 167.6 cm; Wt 92.6 kg
[~2020-02-07 15:02] MED LIST changes: +LACTULOSE20 GM/30 M PO; +MEMANTINE HCL10 MG PO; +RIVASTIGMINE1 EAC1 T; +VITAMIN D5000 UNI1 PO
[2020-02-07 15:21] LABS: BASO % 0.3 % (0.0-1.0); EOS # 0.1 10*3/uL (0.0-0.4); HEMATOCRIT 43.4 % (42.0-52.0); LYMPH # 0.7 10*3/uL (1.3-4.4); LYMPH % 7.1 % (27.0-41.0); MEAN CELL VOLUME 93.3 fl (80.0-94.0); MEAN CORPUSCULAR HGB 29.5 pg (27.0-31.0); MEAN CORPUSCULAR HGB CONC 31.6 g/dl (33.0-37.0); MEAN PLATELET VOLUME 9.6 fl (9.6-12.3); MONO # 0.6 10*3/uL (0.1-1.0); MONO % 6.6 % (3.0-9.0); NEUT # 8.2 10*3/uL (2.3-7.9); NEUT % 84.7 % (47.0-73.0); PLATELET COUNT AUTOMATED 95 10*3/uL (130-400); RED BLOOD COUNT 4.65 10*6/uL (4.50-5.90); RED CELL DISTRI WIDTH 14.6 % (0-14.5); WHITE BLOOD COUNT 9.7 10*3/uL (4.8-10.8)
[2020-02-07 15:32] LABS: ACT PARTIAL THROMBO TIME 28.4 SECONDS (20.0-32.1); INTERNATIONAL NORM RATIO 1.1 (2.0-3.5)
[2020-02-07 15:39] LABS: ALBUMIN 3.9 gm/dl (3.1-4.5); CREATININE 1.64 mg/dL (0.70-1.30); POTASSIUM 4.3 mmol/L (3.5-5.1); TOTAL PROTEIN 7.7 gm/dL (6.4-8.2)
[2020-02-07 15:40] LABS: BILIRUBIN Negative (Negative); BLOOD Negative (Negative); CLARITY Clear (Clear); COLOR Yellow (Yellow); GLUCOSE Negative (Negative); KETONE Negative (Negative); LEUKO ESTERASE Negative (Negative); NITRITE Negative (Negative)
[2020-02-07 15:45] LABS: TROPONIN I 0.236 ng/ml (<0.045)
[2020-02-07 15:50] LABS: BACTERIA TRACE; RBC 0-2 rbc/hpf (0-2); WBC 0-2 wbc/hpf (0-5)
[2020-02-08] VITALS (24 sets, daily range): BP systolic 72–158; BP diastolic 40–86
[2020-02-08] MEDS ORDERED: BIOFREEZE118 ML T (02:09)
[2020-02-08] MEDS ORDERED: BUMETANIDE1 MG PO (02:10)
[2020-02-08] MEDS ORDERED: COREG12.5 M1 PO ×2 (02:11→02:23)
[2020-02-08] MEDS ORDERED: CITALOPRAM20 MG PO (02:13)
[2020-02-08] MEDS ORDERED: CENTRUM SILVER1 EAC3 PO (02:13)
[2020-02-08] MEDS ORDERED: NATURE'S BLEND F1 MG PO (02:14)
[2020-02-08] MEDS ORDERED: GLUCERNA 1.2 C237 ML PO (02:15)
[2020-02-08] MEDS ORDERED: POTASSIUM CHLO20 ME3 PO (02:16)
[2020-02-08] MEDS ORDERED: RISPERIDONE0.5 MG PO (02:17)
[2020-02-08] MEDS ORDERED: RIVASTIGMINE1 EACH T (02:18)
[2020-02-08] MEDS ORDERED: TRESIBA FL100 UNIT/1 SQ (02:18)
[2020-02-08] MEDS ORDERED: VITAMIN B121000 MC1 PO (02:19)
[2020-02-08] MEDS ORDERED: VITAMIN C500 M4 PO (02:20)
[2020-02-08] MEDS ORDERED: VITAMIN D350 MC2 PO (02:25)
[2020-02-08 06:19] LABS: HEMATOCRIT 39.3 % (42.0-52.0); MEAN CELL VOLUME 93.1 fl (80.0-94.0); MEAN CORPUSCULAR HGB 29.6 pg (27.0-31.0); MEAN CORPUSCULAR HGB CONC 31.8 g/dl (33.0-37.0); MEAN PLATELET VOLUME 10.3 fl (9.6-12.3); PLATELET COUNT AUTOMATED 78 10*3/uL (130-400); RED BLOOD COUNT 4.22 10*6/uL (4.50-5.90); RED CELL DISTRI WIDTH 14.8 % (0-14.5)
[2020-02-08 06:38] LABS: ALBUMIN 3.2 gm/dl (3.1-4.5); CREATININE 1.93 mg/dL (0.70-1.30); FREE T4 0.87 ng/dl (0.76-1.46); POTASSIUM 3.8 mmol/L (3.5-5.1)
[2020-02-08 06:44] LABS: THYROID STIM HORMONE (HS) 0.79 uIU/ml (0.358-4.75); TOTAL PROTEIN 6.8 gm/dL (6.4-8.2)
[2020-02-08 07:20] LABS: OVALOCYTES FEW; PLATELET SUFFICIENCY LOW (NORMAL); TOTAL CELLS COUNTED 100 #CELLS
[2020-02-08 07:33] LABS: VITAMIN D, 25-HYDROXY 52.5 ng/mL (30-100)
[2020-02-08 07:34] LABS: FERRITIN 96.9 ng/mL (22.0-322.0)
[2020-02-08 10:32] LABS: ABG BASE EXCESS 0.6 mmol/L (-2.0-2.0); ARTERIAL BLOOD GAS PH 7.399 (7.35-7.45)
[2020-02-09] VITALS: BP 103/54
[2020-02-09 04:00] VITALS: BP 108/63
[2020-02-09 05:50] LABS: CREATININE 1.7 mg/dL (0.70-1.30); POTASSIUM 3.8 mmol/L (3.5-5.1)
[2020-02-09 06:15] LABS: BASO % 0.1 % (0.0-1.0); LYMPH # 0.9 10*3/uL (1.3-4.4); LYMPH % 6.2 % (27.0-41.0); MEAN CORPUSCULAR HGB CONC 32.2 g/dl (33.0-37.0); MONO # 1.2 10*3/uL (0.1-1.0); MONO % 8.3 % (3.0-9.0); NEUT # 12.2 10*3/uL (2.3-7.9); NEUT % 84.7 % (47.0-73.0); PLATELET COUNT AUTOMATED 65 10*3/uL (130-400); RED BLOOD COUNT 3.87 10*6/uL (4.50-5.90); RED CELL DISTRI WIDTH 14.7 % (0-14.5); WHITE BLOOD COUNT 14.4 10*3/uL (4.8-10.8)
[2020-02-09 08:00] VITALS: BP 139/74
[2020-02-09 12:00] VITALS: BP 136/75
[2020-02-09 16:00] VITALS: BP 111/54
[2020-02-09 20:00] VITALS: BP 141/77
[2020-02-10] VITALS: BP 157/81
[2020-02-10 04:00] VITALS: BP 144/76
[2020-02-10 06:08] LABS: CREATININE 1.41 mg/dL (0.70-1.30); POTASSIUM 4.2 mmol/L (3.5-5.1)
[2020-02-10 06:15] LABS: BASO % 0.1 % (0.0-1.0); HEMATOCRIT 36.4 % (42.0-52.0); LYMPH # 0.8 10*3/uL (1.3-4.4); LYMPH % 5.4 % (27.0-41.0); MEAN CELL VOLUME 92.9 fl (80.0-94.0); MEAN CORPUSCULAR HGB 29.6 pg (27.0-31.0); MEAN CORPUSCULAR HGB CONC 31.9 g/dl (33.0-37.0); MEAN PLATELET VOLUME 11.5 fl (9.6-12.3); MONO # 0.9 10*3/uL (0.1-1.0); MONO % 6.7 % (3.0-9.0); NEUT # 12.2 10*3/uL (2.3-7.9); NEUT % 86.8 % (47.0-73.0); PLATELET COUNT AUTOMATED 73 10*3/uL (130-400); RED BLOOD COUNT 3.92 10*6/uL (4.50-5.90); RED CELL DISTRI WIDTH 14.7 % (0-14.5); WHITE BLOOD COUNT 14.1 10*3/uL (4.8-10.8)
[2020-02-10 08:00] VITALS: BP 152/86
[2020-02-10 12:00] VITALS: BP 136/76
[2020-02-10 16:00] VITALS: BP 138/80
[2020-02-10 20:00] VITALS: BP 143/79
[2020-02-11] VITALS: BP 147/83
[2020-02-11 06:16] LABS: BASO % 0.1 % (0.0-1.0); EOS % 0.1 % (1.0-4.0); HEMATOCRIT 36.4 % (42.0-52.0); LYMPH # 1.1 10*3/uL (1.3-4.4); LYMPH % 9.1 % (27.0-41.0); MEAN CELL VOLUME 93.3 fl (80.0-94.0); MEAN CORPUSCULAR HGB 29.7 pg (27.0-31.0); MEAN CORPUSCULAR HGB CONC 31.9 g/dl (33.0-37.0); MEAN PLATELET VOLUME 11.7 fl (9.6-12.3); MONO # 0.9 10*3/uL (0.1-1.0); NEUT # 10.2 10*3/uL (2.3-7.9); PLATELET COUNT AUTOMATED 80 10*3/uL (130-400); RED CELL DISTRI WIDTH 14.5 % (0-14.5); WHITE BLOOD COUNT 12.3 10*3/uL (4.8-10.8)
[2020-02-11 06:48] LABS: BUN 35 mg/dl (7-24); CHLORIDE 106 mmol/L (98-107); CREATININE 1.26 mg/dL (0.70-1.30); POTASSIUM 3.7 mmol/L (3.5-5.1); SODIUM 141 mmol/L (136-145)
[2020-02-11 08:00] VITALS: BP 143/83
[2020-02-11 12:00] VITALS: BP 144/76
[2020-02-11 16:00] VITALS: BP 136/86
[2020-02-11 20:00] VITALS: BP 127/72
[2020-02-12] VITALS: BP 117/50
[2020-02-12 07:22] LABS: EOS # 0.2 10*3/uL (0.0-0.4); EOS % 2.9 % (1.0-4.0); HEMATOCRIT 35.1 % (42.0-52.0); LYMPH # 1.4 10*3/uL (1.3-4.4); LYMPH % 18.8 % (27.0-41.0); MEAN CELL VOLUME 93.4 fl (80.0-94.0); MEAN CORPUSCULAR HGB 30.1 pg (27.0-31.0); MEAN CORPUSCULAR HGB CONC 32.2 g/dl (33.0-37.0); MEAN PLATELET VOLUME 10.9 fl (9.6-12.3); MONO # 0.9 10*3/uL (0.1-1.0); MONO % 11.5 % (3.0-9.0); NEUT # 4.9 10*3/uL (2.3-7.9); NEUT % 65.8 % (47.0-73.0); PLATELET COUNT AUTOMATED 72 10*3/uL (130-400); RED BLOOD COUNT 3.76 10*6/uL (4.50-5.90); RED CELL DISTRI WIDTH 14.4 % (0-14.5); WHITE BLOOD COUNT 7.4 10*3/uL (4.8-10.8)
[2020-02-12 07:47] LABS: ALBUMIN 2.8 gm/dl (3.1-4.5); BUN 31 mg/dl (7-24); CHLORIDE 106 mmol/L (98-107); POTASSIUM 3.6 mmol/L (3.5-5.1); SODIUM 140 mmol/L (136-145)
[2020-02-12 07:52] LABS: ALKALINE PHOSPHATASE 54 U/L (45-117); CREATININE 1.27 mg/dL (0.70-1.30); SGOT/AST 13 IU/L (3-35); SGPT/ALT 18 U/L (12-78); TOTAL PROTEIN 5.8 gm/dL (6.4-8.2)
[2020-02-12 08:00] VITALS: BP 126/64
[2020-02-12 12:00] VITALS: BP 132/60
[2020-02-12 16:00] VITALS: BP 130/64
[2020-02-12 20:00] VITALS: BP 114/62
[2020-02-13] VITALS: BP 141/58
[2020-02-13 07:07] LABS: BASO % 0.1 % (0.0-1.0); EOS # 0.4 10*3/uL (0.0-0.4); EOS % 4.9 % (1.0-4.0); HEMATOCRIT 34.4 % (42.0-52.0); LYMPH # 1.3 10*3/uL (1.3-4.4); LYMPH % 18.3 % (27.0-41.0); MEAN CELL VOLUME 92.7 fl (80.0-94.0); MEAN CORPUSCULAR HGB 30.2 pg (27.0-31.0); MEAN CORPUSCULAR HGB CONC 32.6 g/dl (33.0-37.0); MEAN PLATELET VOLUME 10.9 fl (9.6-12.3); MONO # 0.8 10*3/uL (0.1-1.0); MONO % 11.7 % (3.0-9.0); NEUT # 4.6 10*3/uL (2.3-7.9); NEUT % 63.2 % (47.0-73.0); PLATELET COUNT AUTOMATED 78 10*3/uL (130-400); RED BLOOD COUNT 3.71 10*6/uL (4.50-5.90); RED CELL DISTRI WIDTH 14.3 % (0-14.5); WHITE BLOOD COUNT 7.2 10*3/uL (4.8-10.8)
[2020-02-13 07:33] LABS: BUN 29 mg/dl (7-24); CHLORIDE 106 mmol/L (98-107); CREATININE 1.26 mg/dL (0.70-1.30); POTASSIUM 3.8 mmol/L (3.5-5.1); SODIUM 140 mmol/L (136-145)
[2020-02-13 08:00] VITALS: BP 134/90
[2020-02-13 12:00] VITALS: BP 140/56
[2020-02-13 16:00] VITALS: BP 136/62
[2020-02-13 20:00] VITALS: BP 126/63
[2020-02-14] VITALS: BP 130/73
[2020-02-14 08:00] VITALS: BP 124/60
[2020-02-14 11:40] LABS: BASO % 0.1 % (0.0-1.0); EOS # 0.4 10*3/uL (0.0-0.4); EOS % 4.7 % (1.0-4.0); LYMPH # 1.6 10*3/uL (1.3-4.4); LYMPH % 20.7 % (27.0-41.0); MEAN CELL VOLUME 92.3 fl (80.0-94.0); MEAN CORPUSCULAR HGB 29.8 pg (27.0-31.0); MEAN CORPUSCULAR HGB CONC 32.3 g/dl (33.0-37.0); MEAN PLATELET VOLUME 10.4 fl (9.6-12.3); MONO # 0.9 10*3/uL (0.1-1.0); MONO % 12.1 % (3.0-9.0); NEUT # 4.6 10*3/uL (2.3-7.9); NEUT % 60.4 % (47.0-73.0); PLATELET COUNT AUTOMATED 100 10*3/uL (130-400); RED BLOOD COUNT 3.79 10*6/uL (4.50-5.90); RED CELL DISTRI WIDTH 14.2 % (0-14.5); WHITE BLOOD COUNT 7.6 10*3/uL (4.8-10.8)
[2020-02-14 11:55] LABS: ALBUMIN 2.7 gm/dl (3.1-4.5); ALKALINE PHOSPHATASE 57 U/L (45-117); BUN 25 mg/dl (7-24); CHLORIDE 107 mmol/L (98-107); CREATININE 1.11 mg/dL (0.70-1.30); SGOT/AST 12 IU/L (3-35); SGPT/ALT 21 U/L (12-78); SODIUM 140 mmol/L (136-145); TOTAL PROTEIN 6.1 gm/dL (6.4-8.2)
[2020-02-14 12:00] VITALS: BP 126/68
[2020-02-14 16:00] VITALS: BP 120/80; BP 130/44
[2020-02-14 20:00] VITALS: BP 133/80
[2020-02-15] VITALS (8 sets, daily range): BP systolic 88–137; BP diastolic 52–76
[2020-02-16] VITALS: BP 125/81
[2020-02-16 08:00] VITALS: BP 90/50
[2020-02-16 12:00] VITALS: BP 110/82
[2020-02-16 16:00] VITALS: BP 100/63
[2020-02-16 20:00] VITALS: BP 108/75
[2020-02-17] VITALS: BP 99/53
[2020-02-17 06:06] LABS: BUN 26 mg/dl (7-24); CHLORIDE 101 mmol/L (98-107); CREATININE 1.36 mg/dL (0.70-1.30); POTASSIUM 3.4 mmol/L (3.5-5.1); SODIUM 140 mmol/L (136-145)
[2020-02-17 06:07] LABS: BASO % 0.2 % (0.0-1.0); EOS # 0.2 10*3/uL (0.0-0.4); EOS % 2.7 % (1.0-4.0); HEMATOCRIT 36.3 % (42.0-52.0); LYMPH % 25.2 % (27.0-41.0); MEAN CELL VOLUME 92.8 fl (80.0-94.0); MEAN CORPUSCULAR HGB 29.9 pg (27.0-31.0); MEAN CORPUSCULAR HGB CONC 32.2 g/dl (33.0-37.0); MEAN PLATELET VOLUME 10.5 fl (9.6-12.3); MONO # 0.9 10*3/uL (0.1-1.0); MONO % 11.6 % (3.0-9.0); NEUT # 4.8 10*3/uL (2.3-7.9); NEUT % 59.4 % (47.0-73.0); PLATELET COUNT AUTOMATED 120 10*3/uL (130-400); RED BLOOD COUNT 3.91 10*6/uL (4.50-5.90); RED CELL DISTRI WIDTH 14.2 % (0-14.5)
[2020-02-17 08:00] VITALS: BP 100/56
[2020-02-17] MEDS ORDERED: CEFTRIAXONE1 G1 IV (08:03)
[2020-02-17 12:00] VITALS: BP 125/73
[2020-02-17] MEDS ORDERED: K-TAB20 MEQ PO (14:45)
[2020-02-17] MEDS ORDERED: ASPIRIN ADULT L81 M2 PO (14:45)
[2020-02-17] MEDS ORDERED: COREG12.5 M1 PO (14:45)
[2020-02-17] MEDS ORDERED: OMNICEF300 MG PO (14:52)
[2020-02-18] MEDS ORDERED: CEFTRIAXONE2 GM IV (14:35)
[2020-02-18] MEDS ORDERED: HUMALOG100 UNIT/1 SC (14:39)
[2020-02-18] MEDS ORDERED: NAMENDA10 MG PO (14:41)
[2020-02-18] MEDS ORDERED: WARFARIN SODIUM5 MG PO (14:44)
== END 2020-02-17 16:01 | disposition other institution (70) | DRG 871 ==
LOC: ED 15:02 → ICCU 18:25 → EDHOLD 18:25 → 4E 18:25 → EDHOLD 18:25 → ICCU 02-08 06:40 → 4E 02-10 20:12
PROVIDERS: Emergency Medicine; Hospitalist; Internal Medicine; Registered Nurse; Student in an Organized Health Care Education/Training Program; ADMIT Student in an Organized Health Care Education/Training Program; ATTEND Student in an Organized Health Care Education/Training Program
PROC: 4A02XM4 Measurement of Cardiac Total Activity, External Approach (ICD-10-PCS; principal; 2020-02-11)
PROC: 3E073KZ Introduction of Other Diagnostic Substance into Coronary Artery, Percutaneous Approach (ICD-10-PCS; principal; 2020-02-11)
PROC: B24BZZ4 Ultrasonography of Heart with Aorta, Transesophageal (ICD-10-PCS; 2020-02-15)
PROC: 05HB33Z Insertion of Infusion Device into Right Basilic Vein, Percutaneous Approach (ICD-10-PCS; 2020-02-17)
DX: A41.59 Other Gram-negative sepsis (principal); N17.0 Acute kidney failure with tubular necrosis; J96.01 Acute respiratory failure with hypoxia; I50.42 Chronic combined systolic (congestive) and diastolic (congestive) heart failure; I48.20 Chronic atrial fibrillation, unspecified; I24.8 Other forms of acute ischemic heart disease; I13.0 Hypertensive heart and chronic kidney disease with heart failure and stage 1 through stage 4 chronic kidney disease, or unspecified chronic kidney disease; N39.0 Urinary tract infection, site not specified; I25.10 Atherosclerotic heart disease of native coronary artery without angina pectoris; D69.6 Thrombocytopenia, unspecified; D64.9 Anemia, unspecified; Z20.828 Contact with and (suspected) exposure to other viral communicable diseases; R65.20 Severe sepsis without septic shock; N18.30 Chronic kidney disease, stage 3 unspecified; E11.649 Type 2 diabetes mellitus with hypoglycemia without coma; E66.9 Obesity, unspecified; E11.22 Type 2 diabetes mellitus with diabetic chronic kidney disease; F03.90 Unspecified dementia, unspecified severity, without behavioral disturbance, psychotic disturbance, mood disturbance, and anxiety; I08.3 Combined rheumatic disorders of mitral, aortic and tricuspid valves; Z79.4 Long term (current) use of insulin; Z95.810 Presence of automatic (implantable) cardiac defibrillator; Z91.041 Radiographic dye allergy status; Z87.442 Personal history of urinary calculi; Z95.1 Presence of aortocoronary bypass graft; Z95.2 Presence of prosthetic heart valve; Z87.891 Personal history of nicotine dependence; Z81.1 Family history of alcohol abuse and dependence; Z84.89 Family history of other specified conditions; Z79.01 Long term (current) use of anticoagulants; I25.2 Old myocardial infarction; Z79.899 Other long term (current) drug therapy; Z68.32 Body mass index [BMI] 32.0-32.9, adult

== ENCOUNTER 2020-02-18 08:55 | Observation (INO) | payer MEDICARE ==
[~2020-02-18] VITALS: Ht 170.2 cm; Wt 92.3 kg
[2020-02-18 08:55] VITALS: BP 133/71
[~2020-02-18 08:55] MED LIST changes: +ASPIRIN ADULT L81 M2 PO; +BIOFREEZE118 ML T; +CEFTRIAXONE1 G1 IV; +CENTRUM SILVER1 EAC3 PO; +CITALOPRAM20 MG PO; +GLUCERNA 1.2 C237 ML PO; +K-TAB20 MEQ PO; +NATURE'S BLEND F1 MG PO; +OMNICEF300 MG PO; +POTASSIUM CHLO20 ME3 PO; +RIVASTIGMINE1 EACH T; +TRESIBA FL100 UNIT/1 SQ; +VITAMIN B121000 MC1 PO; +VITAMIN C500 M4 PO; +VITAMIN D350 MC2 PO
[2020-02-18 09:15] LABS: BASO % 0.2 % (0.0-1.0); EOS # 0.2 10*3/uL (0.0-0.4); EOS % 2.2 % (1.0-4.0); HEMATOCRIT 38.3 % (42.0-52.0); LYMPH # 1.8 10*3/uL (1.3-4.4); LYMPH % 20.3 % (27.0-41.0); MEAN CELL VOLUME 91.4 fl (80.0-94.0); MEAN CORPUSCULAR HGB 29.4 pg (27.0-31.0); MEAN CORPUSCULAR HGB CONC 32.1 g/dl (33.0-37.0); MONO # 0.9 10*3/uL (0.1-1.0); MONO % 9.9 % (3.0-9.0); NEUT # 5.8 10*3/uL (2.3-7.9); NEUT % 66.7 % (47.0-73.0); PLATELET COUNT AUTOMATED 134 10*3/uL (130-400); RED BLOOD COUNT 4.19 10*6/uL (4.50-5.90); RED CELL DISTRI WIDTH 14.2 % (0-14.5); WHITE BLOOD COUNT 8.7 10*3/uL (4.8-10.8)
[2020-02-18 09:36] LABS: ALBUMIN 3.3 gm/dl (3.1-4.5); CREATININE 1.39 mg/dL (0.70-1.30); POTASSIUM 3.5 mmol/L (3.5-5.1); TOTAL PROTEIN 6.8 gm/dL (6.4-8.2)
[2020-02-18 09:38] LABS: TROPONIN I 0.225 ng/ml (<0.045)
[2020-02-18 09:42] LABS: ACT PARTIAL THROMBO TIME 25.2 SECONDS (20.0-32.1); INTERNATIONAL NORM RATIO 1.1 (2.0-3.5)
[2020-02-18 11:24] VITALS: BP 108/75
[2020-02-18 11:45] VITALS: BP 115/22; BP 115/52
[2020-02-18] MEDS ORDERED: CEFTRIAXONE2 GM IV (14:35)
[2020-02-18] MEDS ORDERED: HUMALOG100 UNIT/1 SC (14:39)
[2020-02-18] MEDS ORDERED: NAMENDA10 MG PO (14:41)
[2020-02-18] MEDS ORDERED: WARFARIN SODIUM5 MG PO (14:44)
[2020-02-18 16:00] VITALS: BP 132/65
[2020-02-18 20:00] VITALS: BP 100/59
[2020-02-19] VITALS: BP 101/55
[2020-02-19 06:20] LABS: BASO % 0.3 % (0.0-1.0); EOS # 0.2 10*3/uL (0.0-0.4); EOS % 2.6 % (1.0-4.0); HEMATOCRIT 35.2 % (42.0-52.0); LYMPH # 1.8 10*3/uL (1.3-4.4); MEAN CELL VOLUME 93.9 fl (80.0-94.0); MEAN CORPUSCULAR HGB 30.1 pg (27.0-31.0); MEAN CORPUSCULAR HGB CONC 32.1 g/dl (33.0-37.0); MEAN PLATELET VOLUME 10.3 fl (9.6-12.3); MONO # 0.9 10*3/uL (0.1-1.0); MONO % 11.3 % (3.0-9.0); NEUT # 4.9 10*3/uL (2.3-7.9); NEUT % 62.2 % (47.0-73.0); PLATELET COUNT AUTOMATED 130 10*3/uL (130-400); RED BLOOD COUNT 3.75 10*6/uL (4.50-5.90); RED CELL DISTRI WIDTH 14.4 % (0-14.5); WHITE BLOOD COUNT 7.8 10*3/uL (4.8-10.8)
[2020-02-19 06:45] LABS: ALBUMIN 2.8 gm/dl (3.1-4.5); ALKALINE PHOSPHATASE 72 U/L (45-117); BUN 21 mg/dl (7-24); CHLORIDE 104 mmol/L (98-107); CREATININE 1.28 mg/dL (0.70-1.30); POTASSIUM 3.4 mmol/L (3.5-5.1); SGOT/AST 15 IU/L (3-35); SGPT/ALT 16 U/L (12-78); SODIUM 144 mmol/L (136-145); TOTAL PROTEIN 6.2 gm/dL (6.4-8.2)
[2020-02-19 08:00] VITALS: BP 102/64
[2020-02-19] MEDS ORDERED: CARVEDILOL6.25 MG PO (09:27)
[2020-02-19] MEDS ORDERED: APRESOLINE10 MG PO (09:27)
[2020-02-19] MEDS ORDERED: ISORDIL10 M1 PO (09:27)
== END 2020-02-19 11:15 ==
LOC: ED 08:55 → EDHOLD 10:14 → 4E 10:22
PROVIDERS: Emergency Medicine; ADMIT Family Medicine; ATTEND Family Medicine
DX: R07.89 Other chest pain (principal); R77.8 Other specified abnormalities of plasma proteins; E11.65 Type 2 diabetes mellitus with hyperglycemia; D64.9 Anemia, unspecified; I10 Essential (primary) hypertension; I48.0 Paroxysmal atrial fibrillation; F03.90 Unspecified dementia, unspecified severity, without behavioral disturbance, psychotic disturbance, mood disturbance, and anxiety; I25.10 Atherosclerotic heart disease of native coronary artery without angina pectoris; Z20.828 Contact with and (suspected) exposure to other viral communicable diseases

== ENCOUNTER 2020-04-27 12:29 | Observation (INO) | payer MEDICARE ==
[~2020-04-27] VITALS: Ht 172.7 cm; Wt 91.3 kg
[~2020-04-27 12:29] MED LIST changes: +CEFTRIAXONE2 GM IV; +HUMALOG100 UNIT/1 SC; +ISORDIL10 M1 PO; +NAMENDA10 MG PO; +WARFARIN SODIUM5 MG PO
[2020-04-27 12:31] VITALS: BP 139/82
[2020-04-27 13:14] LABS: BILIRUBIN Negative (Negative); BLOOD Negative (Negative); CLARITY Clear (Clear); COLOR Yellow (Yellow); GLUCOSE Trace (Negative); KETONE Trace (Negative); LEUKO ESTERASE Negative (Negative); NITRITE Negative (Negative)
[2020-04-27 13:15] LABS: BASO % 0.4 % (0.0-1.0); EOS # 0.2 10*3/uL (0.0-0.4); HEMATOCRIT 38.5 % (42.0-52.0); LYMPH # 2.1 10*3/uL (1.3-4.4); LYMPH % 27.6 % (27.0-41.0); MEAN CELL VOLUME 90.4 fl (80.0-94.0); MEAN CORPUSCULAR HGB 29.8 pg (27.0-31.0); MEAN PLATELET VOLUME 10.4 fl (9.6-12.3); MONO # 0.7 10*3/uL (0.1-1.0); MONO % 9.7 % (3.0-9.0); NEUT # 4.5 10*3/uL (2.3-7.9); PLATELET COUNT AUTOMATED 141 10*3/uL (130-400); RED BLOOD COUNT 4.26 10*6/uL (4.50-5.90); RED CELL DISTRI WIDTH 14.3 % (0-14.5); WHITE BLOOD COUNT 7.7 10*3/uL (4.8-10.8)
[2020-04-27 13:26] LABS: INTERNATIONAL NORM RATIO 2.9 (2.0-3.5)
[2020-04-27 13:30] VITALS: BP 128/72
[2020-04-27 13:30] LABS: ALBUMIN 3.4 gm/dl (3.1-4.5); CREATININE 1.69 mg/dL (0.70-1.30); POTASSIUM 3.6 mmol/L (3.5-5.1); TOTAL PROTEIN 7.2 gm/dL (6.4-8.2)
[2020-04-27 13:37] LABS: BACTERIA 1+; HYALINE CAST 16-20
[2020-04-27 13:37] LABS: TROPONIN I 0.139 ng/ml (<0.045)
[2020-04-27 15:20] VITALS: BP 132/84
[2020-04-27] MEDS ORDERED: ISOSORBIDE DINI10 M1 PO (17:12)
[2020-04-27] MEDS ORDERED: LANTUS SOL100 UNIT/1 SC (17:19)
[2020-04-27] MEDS ORDERED: APRESOLINE10 MG PO (17:20)
[2020-04-27 18:00] VITALS: BP 128/84
[2020-04-27 20:21] VITALS: BP 130/70
[2020-04-27 20:30] VITALS: BP 152/83
[2020-04-28] VITALS: BP 143/80
[2020-04-28 06:36] LABS: BASO % 0.3 % (0.0-1.0); EOS # 0.3 10*3/uL (0.0-0.4); EOS % 3.7 % (1.0-4.0); HEMATOCRIT 40.1 % (42.0-52.0); LYMPH # 1.8 10*3/uL (1.3-4.4); LYMPH % 26.9 % (27.0-41.0); MEAN CELL VOLUME 90.5 fl (80.0-94.0); MEAN CORPUSCULAR HGB 29.8 pg (27.0-31.0); MEAN CORPUSCULAR HGB CONC 32.9 g/dl (33.0-37.0); MEAN PLATELET VOLUME 10.6 fl (9.6-12.3); MONO # 0.8 10*3/uL (0.1-1.0); MONO % 11.6 % (3.0-9.0); NEUT # 3.9 10*3/uL (2.3-7.9); NEUT % 57.4 % (47.0-73.0); PLATELET COUNT AUTOMATED 133 10*3/uL (130-400); RED BLOOD COUNT 4.43 10*6/uL (4.50-5.90); RED CELL DISTRI WIDTH 14.1 % (0-14.5); WHITE BLOOD COUNT 6.8 10*3/uL (4.8-10.8)
[2020-04-28 06:42] LABS: INTERNATIONAL NORM RATIO 3.1 (2.0-3.5)
[2020-04-28 06:53] LABS: ALBUMIN 3.4 gm/dl (3.1-4.5); ALKALINE PHOSPHATASE 86 U/L (45-117); BUN 16 mg/dl (7-24); CHLORIDE 104 mmol/L (98-107); POTASSIUM 3.2 mmol/L (3.5-5.1); SGOT/AST 13 IU/L (3-35); SGPT/ALT 14 U/L (12-78); SODIUM 141 mmol/L (136-145)
[2020-04-28 08:00] VITALS: BP 147/79
[2020-04-28 12:00] VITALS: BP 121/59
[2020-04-28 16:00] VITALS: BP 110/40
[2020-04-28 20:00] VITALS: BP 104/54
[2020-04-29] VITALS: BP 113/55
[2020-04-29 07:03] LABS: BUN 17 mg/dl (7-24); CHLORIDE 104 mmol/L (98-107); POTASSIUM 3.4 mmol/L (3.5-5.1); SODIUM 141 mmol/L (136-145)
[2020-04-29 07:04] LABS: CREATININE 1.25 mg/dL (0.70-1.30)
[2020-04-29 08:00] VITALS: BP 147/78
[2020-04-29] MEDS ORDERED: LACTULOSE20 GM/30 M PO (09:25)
[2020-04-29 12:00] VITALS: BP 146/67
== END 2020-04-29 16:53 | disposition other institution (70) ==
LOC: ED 12:29 → EDHOLD 14:45 → 5E 20:20
PROVIDERS: Emergency Medicine; Registered Nurse; ADMIT Family Medicine; ATTEND Family Medicine
DX: R41.82 Altered mental status, unspecified (principal); E11.22 Type 2 diabetes mellitus with diabetic chronic kidney disease; I25.10 Atherosclerotic heart disease of native coronary artery without angina pectoris; F03.90 Unspecified dementia, unspecified severity, without behavioral disturbance, psychotic disturbance, mood disturbance, and anxiety; R77.8 Other specified abnormalities of plasma proteins; E11.65 Type 2 diabetes mellitus with hyperglycemia; E44.0 Moderate protein-calorie malnutrition; G93.41 Metabolic encephalopathy; I48.20 Chronic atrial fibrillation, unspecified; I13.0 Hypertensive heart and chronic kidney disease with heart failure and stage 1 through stage 4 chronic kidney disease, or unspecified chronic kidney disease; N18.30 Chronic kidney disease, stage 3 unspecified; I50.40 Unspecified combined systolic (congestive) and diastolic (congestive) heart failure; Z20.828 Contact with and (suspected) exposure to other viral communicable diseases; Z98.890 Other specified postprocedural states; Z95.2 Presence of prosthetic heart valve; Z87.891 Personal history of nicotine dependence; Z95.0 Presence of cardiac pacemaker; Z95.810 Presence of automatic (implantable) cardiac defibrillator

== ENCOUNTER 2020-10-11 09:40 | Inpatient (IN) | payer MEDICARE ==
[~2020-10-11] VITALS: Ht 170.2 cm; Wt 92.6 kg
[~2020-10-11 09:40] MED LIST changes: +HYDROCODONE-AC1 EAC1 PO; +ISOSORBIDE DINI10 M1 PO; +JANTOVEN4 M1 PO; +LANTUS SOL100 UNIT/1 SC
[2020-10-11 09:47] VITALS: BP 126/76
[2020-10-11 10:04] LABS: BASO % 0.1 % (0.0-1.0); EOS # 0.2 10*3/uL (0.0-0.4); EOS % 2.1 % (1.0-4.0); HEMATOCRIT 39.5 % (42.0-52.0); LYMPH # 0.8 10*3/uL (1.3-4.4); MEAN CELL VOLUME 92.7 fl (80.0-94.0); MEAN CORPUSCULAR HGB 29.8 pg (27.0-31.0); MEAN CORPUSCULAR HGB CONC 32.2 g/dl (33.0-37.0); MEAN PLATELET VOLUME 10.3 fl (9.6-12.3); MONO # 0.8 10*3/uL (0.1-1.0); MONO % 9.9 % (3.0-9.0); NEUT # 5.9 10*3/uL (2.3-7.9); NEUT % 76.6 % (47.0-73.0); PLATELET COUNT AUTOMATED 122 10*3/uL (130-400); RED BLOOD COUNT 4.26 10*6/uL (4.50-5.90); RED CELL DISTRI WIDTH 14.5 % (0-14.5); WHITE BLOOD COUNT 7.7 10*3/uL (4.8-10.8)
[2020-10-11 10:17] LABS: CREATININE 1.39 mg/dL (0.70-1.30); POTASSIUM 3.1 mmol/L (3.5-5.1); TOTAL PROTEIN 6.8 gm/dL (6.4-8.2)
[2020-10-11 10:22] LABS: TROPONIN I 0.161 ng/ml (<0.045)
[2020-10-11 10:23] LABS: INTERNATIONAL NORM RATIO 1.8 (2.0-3.5)
[2020-10-11 10:25] LABS: BILIRUBIN Negative (Negative); BLOOD Negative (Negative); CLARITY Clear (Clear); COLOR Dark Yellow (Yellow); GLUCOSE Negative (Negative); KETONE Trace (Negative); LEUKO ESTERASE Negative (Negative); NITRITE Negative (Negative); PH 5.5 (4.5-8.0); SPECIFIC GRAVITY 1.025 (1.001-1.030)
[2020-10-11 10:32] LABS: MUCOUS 2+
[2020-10-11 12:42] VITALS: BP 142/84
[2020-10-11 14:14] VITALS: BP 134/81
[2020-10-11 14:25] VITALS: BP 134/81
[2020-10-11] MEDS ORDERED: CARVEDILOL6.25 MG PO (14:58)
[2020-10-11] MEDS ORDERED: LEVEMIR FL100 UNIT/1 SC (15:01)
[2020-10-11] MEDS ORDERED: NOVOLOG FL100 UNIT/2 SC (15:05)
[2020-10-11] MEDS ORDERED: EXELON1 EAC1 TD (15:06)
[2020-10-11 16:00] VITALS: BP 155/82
[2020-10-11 20:00] VITALS: BP 156/86
[2020-10-12] VITALS (7 sets, daily range): BP systolic 97–148; BP diastolic 40–82
[2020-10-12 06:30] LABS: BASO % 0.4 % (0.0-1.0); EOS # 0.2 10*3/uL (0.0-0.4); EOS % 2.8 % (1.0-4.0); HEMATOCRIT 36.8 % (42.0-52.0); LYMPH # 1.6 10*3/uL (1.3-4.4); LYMPH % 22.3 % (27.0-41.0); MEAN CELL VOLUME 93.6 fl (80.0-94.0); MEAN CORPUSCULAR HGB CONC 32.1 g/dl (33.0-37.0); MEAN PLATELET VOLUME 10.7 fl (9.6-12.3); MONO # 1.1 10*3/uL (0.1-1.0); MONO % 14.8 % (3.0-9.0); NEUT # 4.3 10*3/uL (2.3-7.9); NEUT % 59.4 % (47.0-73.0); PLATELET COUNT AUTOMATED 122 10*3/uL (130-400); RED BLOOD COUNT 3.93 10*6/uL (4.50-5.90); RED CELL DISTRI WIDTH 14.4 % (0-14.5); WHITE BLOOD COUNT 7.2 10*3/uL (4.8-10.8)
[2020-10-12 06:35] LABS: INTERNATIONAL NORM RATIO 2.2 (2.0-3.5)
[2020-10-12 07:03] LABS: CHLORIDE 111 mmol/L (98-107); SODIUM 143 mmol/L (136-145)
[2020-10-12 07:18] LABS: ALBUMIN 2.8 gm/dl (3.1-4.5); ALKALINE PHOSPHATASE 89 U/L (45-117); BUN 16 mg/dl (7-24); CREATININE 1.23 mg/dL (0.70-1.30); SGOT/AST 24 IU/L (3-35); SGPT/ALT 16 U/L (12-78); TOTAL PROTEIN 6.1 gm/dL (6.4-8.2)
[2020-10-13] VITALS: BP 126/62
[2020-10-13 06:21] LABS: BASO % 0.3 % (0.0-1.0); EOS # 0.3 10*3/uL (0.0-0.4); EOS % 4.1 % (1.0-4.0); HEMATOCRIT 34.6 % (42.0-52.0); LYMPH # 1.9 10*3/uL (1.3-4.4); LYMPH % 24.7 % (27.0-41.0); MEAN CELL VOLUME 93.8 fl (80.0-94.0); MEAN CORPUSCULAR HGB 29.5 pg (27.0-31.0); MEAN CORPUSCULAR HGB CONC 31.5 g/dl (33.0-37.0); MEAN PLATELET VOLUME 10.7 fl (9.6-12.3); MONO % 13.3 % (3.0-9.0); NEUT # 4.4 10*3/uL (2.3-7.9); NEUT % 57.3 % (47.0-73.0); PLATELET COUNT AUTOMATED 121 10*3/uL (130-400); RED BLOOD COUNT 3.69 10*6/uL (4.50-5.90); RED CELL DISTRI WIDTH 14.5 % (0-14.5); WHITE BLOOD COUNT 7.7 10*3/uL (4.8-10.8)
[2020-10-13 06:26] LABS: ALBUMIN 2.5 gm/dl (3.1-4.5); BUN 16 mg/dl (7-24); CHLORIDE 110 mmol/L (98-107); POTASSIUM 3.5 mmol/L (3.5-5.1); SODIUM 141 mmol/L (136-145)
[2020-10-13 06:30] LABS: ALKALINE PHOSPHATASE 81 U/L (45-117); CREATININE 1.13 mg/dL (0.70-1.30); SGOT/AST 19 IU/L (3-35); SGPT/ALT 13 U/L (12-78); TOTAL PROTEIN 5.8 gm/dL (6.4-8.2)
[2020-10-13 08:00] VITALS: BP 126/62
[2020-10-13 12:00] VITALS: BP 106/50
[2020-10-13 16:00] VITALS: BP 125/66
[2020-10-13 20:00] VITALS: BP 107/54
[2020-10-14] VITALS: BP 112/59
[2020-10-14 06:33] LABS: BASO % 0.3 % (0.0-1.0); EOS # 0.3 10*3/uL (0.0-0.4); EOS % 3.3 % (1.0-4.0); HEMATOCRIT 32.6 % (42.0-52.0); LYMPH # 1.9 10*3/uL (1.3-4.4); LYMPH % 25.3 % (27.0-41.0); MEAN CELL VOLUME 93.1 fl (80.0-94.0); MEAN CORPUSCULAR HGB 29.7 pg (27.0-31.0); MEAN CORPUSCULAR HGB CONC 31.9 g/dl (33.0-37.0); MEAN PLATELET VOLUME 10.2 fl (9.6-12.3); MONO # 0.8 10*3/uL (0.1-1.0); MONO % 10.9 % (3.0-9.0); NEUT # 4.5 10*3/uL (2.3-7.9); NEUT % 59.8 % (47.0-73.0); PLATELET COUNT AUTOMATED 111 10*3/uL (130-400); RED CELL DISTRI WIDTH 14.4 % (0-14.5); WHITE BLOOD COUNT 7.5 10*3/uL (4.8-10.8)
[2020-10-14 07:05] LABS: CHLORIDE 110 mmol/L (98-107); POTASSIUM 3.4 mmol/L (3.5-5.1); SODIUM 137 mmol/L (136-145)
[2020-10-14 07:09] LABS: BUN 14 mg/dl (7-24); CREATININE 1.09 mg/dL (0.70-1.30)
[2020-10-14 08:00] VITALS: BP 124/51
[2020-10-14 12:00] VITALS: BP 100/57
[2020-10-14] MEDS ORDERED: VANCOCIN125 M1 PO (12:52)
== END 2020-10-14 14:38 | disposition home or self-care (01) | DRG 71 ==
LOC: ED 09:40 → EDHOLD 12:42 → 5E 12:42
PROVIDERS: Emergency Medicine; Internal Medicine; ADMIT Family Medicine; ATTEND Family Medicine
DX: G93.41 Metabolic encephalopathy (principal); A04.72 Enterocolitis due to Clostridium difficile, not specified as recurrent; E44.1 Mild protein-calorie malnutrition; I48.20 Chronic atrial fibrillation, unspecified; I50.42 Chronic combined systolic (congestive) and diastolic (congestive) heart failure; F03.91 Unspecified dementia, unspecified severity, with behavioral disturbance; I13.0 Hypertensive heart and chronic kidney disease with heart failure and stage 1 through stage 4 chronic kidney disease, or unspecified chronic kidney disease; D64.9 Anemia, unspecified; D69.6 Thrombocytopenia, unspecified; E11.22 Type 2 diabetes mellitus with diabetic chronic kidney disease; E87.8 Other disorders of electrolyte and fluid balance, not elsewhere classified; R79.82 Elevated C-reactive protein (CRP); E11.65 Type 2 diabetes mellitus with hyperglycemia; E83.39 Other disorders of phosphorus metabolism; N18.30 Chronic kidney disease, stage 3 unspecified; E80.6 Other disorders of bilirubin metabolism; I25.10 Atherosclerotic heart disease of native coronary artery without angina pectoris; Z20.822 Contact with and (suspected) exposure to COVID-19; E87.6 Hypokalemia; Z95.810 Presence of automatic (implantable) cardiac defibrillator; Z79.4 Long term (current) use of insulin; Z91.041 Radiographic dye allergy status; Z95.2 Presence of prosthetic heart valve; Z95.1 Presence of aortocoronary bypass graft; Z87.442 Personal history of urinary calculi; Z87.891 Personal history of nicotine dependence; Z81.1 Family history of alcohol abuse and dependence; Z84.89 Family history of other specified conditions; I25.2 Old myocardial infarction; Z79.82 Long term (current) use of aspirin; Z79.899 Other long term (current) drug therapy; Z79.01 Long term (current) use of anticoagulants; Z68.31 Body mass index [BMI] 31.0-31.9, adult

== ENCOUNTER 2020-10-25 22:02 | Emergency (ER) | payer MEDICARE ==
[~2020-10-25] VITALS: Ht 180.3 cm; Wt 71.2 kg
[~2020-10-25 22:02] MED LIST changes: +EXELON1 EAC1 TD; +LEVEMIR FL100 UNIT/1 SC; +NOVOLOG FL100 UNIT/2 SC; +VANCOCIN125 M1 PO
[2020-10-25 22:49] LABS: BASO % 0.6 % (0.0-1.0); EOS # 0.2 10*3/uL (0.0-0.4); HEMATOCRIT 37.5 % (42.0-52.0); MEAN CELL VOLUME 91.9 fl (80.0-94.0); MEAN CORPUSCULAR HGB 29.4 pg (27.0-31.0); MEAN PLATELET VOLUME 9.8 fl (9.6-12.3); MONO # 0.7 10*3/uL (0.1-1.0); MONO % 9.6 % (3.0-9.0); NEUT # 4.2 10*3/uL (2.3-7.9); NEUT % 58.4 % (47.0-73.0); PLATELET COUNT AUTOMATED 194 10*3/uL (130-400); RED BLOOD COUNT 4.08 10*6/uL (4.50-5.90); RED CELL DISTRI WIDTH 13.8 % (0-14.5); WHITE BLOOD COUNT 7.1 10*3/uL (4.8-10.8)
[2020-10-25 23:06] LABS: ALBUMIN 3.1 gm/dl (3.1-4.5); ALKALINE PHOSPHATASE 86 U/L (45-117); BUN 18 mg/dl (7-24); CHLORIDE 108 mmol/L (98-107); CREATININE 1.28 mg/dL (0.70-1.30); POTASSIUM 3.4 mmol/L (3.5-5.1); SGOT/AST 17 IU/L (3-35); SGPT/ALT 19 U/L (12-78); SODIUM 139 mmol/L (136-145); TOTAL PROTEIN 6.7 gm/dL (6.4-8.2)
[2020-10-26 05:11] LABS: BILIRUBIN Negative (Negative); BLOOD Negative (Negative); CLARITY Clear (Clear); COLOR Yellow (Yellow); GLUCOSE Negative (Negative); KETONE Negative (Negative); LEUKO ESTERASE Negative (Negative); NITRITE Negative (Negative)
== END 2020-10-26 06:56 ==
LOC: ED 22:02
PROVIDERS: Emergency Medicine
DX: R40.4 Transient alteration of awareness (principal); I12.9 Hypertensive chronic kidney disease with stage 1 through stage 4 chronic kidney disease, or unspecified chronic kidney disease; N18.30 Chronic kidney disease, stage 3 unspecified; I25.10 Atherosclerotic heart disease of native coronary artery without angina pectoris; I48.20 Chronic atrial fibrillation, unspecified; Z87.891 Personal history of nicotine dependence; Z95.1 Presence of aortocoronary bypass graft; Z79.899 Other long term (current) drug therapy; Z79.01 Long term (current) use of anticoagulants; Z79.82 Long term (current) use of aspirin; Z91.041 Radiographic dye allergy status

== ENCOUNTER 2022-04-07 19:16 | Emergency (ER) | payer MEDICARE ==
[~2022-04-07] VITALS: Ht 170.1 cm; Wt 97.2 kg
[~2022-04-07 19:16] MED LIST changes: +ATORVASTATIN CA40 M1 PO; +DECADRON6 M1 PO; +FUROSEMIDE40 MG PO
== END 2022-04-08 00:20 ==
LOC: ED 19:16
DX: S39.012A Strain of muscle, fascia and tendon of lower back, initial encounter (principal); S16.1XXA Strain of muscle, fascia and tendon at neck level, initial encounter; S09.90XA Unspecified injury of head, initial encounter; W18.39XA Other fall on same level, initial encounter; Y93.89 Activity, other specified; Y92.89 Other specified places as the place of occurrence of the external cause; Y99.8 Other external cause status

== ENCOUNTER 2024-01-15 15:36 | Inpatient (IN) | payer MEDICARE ==
[~2024-01-15] VITALS: Ht 172.7 cm; Wt 89.6 kg
[~2024-01-15 15:36] MED LIST changes: +CIPRO500 MG PO
[2024-01-15 15:44] VITALS: BP 110/64
[2024-01-15] MEDS ORDERED: ACETAMINOPHEN500 M5 PO (15:58)
[2024-01-15] MEDS ORDERED: TAGAMET HB200 M1 PO (15:59)
[2024-01-15] MEDS ORDERED: BASAG SOL SQ (15:59)
[2024-01-15] MEDS ORDERED: CYMBALTA60 MG PO (16:01)
[2024-01-15] MEDS ORDERED: LISINOPRIL5 MG PO (16:01)
[2024-01-15] MEDS ORDERED: KLOR-CON M2020 ME1 PO (16:02)
[2024-01-15] MEDS ORDERED: WARFARIN SODIUM4 MG PO (16:02)
[2024-01-15] MEDS ORDERED: Coumadin3 MG PO (16:03)
[2024-01-15] MEDS ORDERED: POTASSIUM CHLO20 ME3 PO (16:04)
[2024-01-15 16:13] LABS: BASO % 0.5 % (0.0-1.0); EOS # 0.2 10*3/uL (0.0-0.4); EOS % 3.1 % (1.0-4.0); HEMATOCRIT 36.8 % (42.0-52.0); LYMPH % 26.1 % (27.0-41.0); MEAN CELL VOLUME 94.6 fl (80.0-94.0); MEAN CORPUSCULAR HGB 30.1 pg (27.0-31.0); MEAN CORPUSCULAR HGB CONC 31.8 g/dl (33.0-37.0); MEAN PLATELET VOLUME 9.3 fl (9.6-12.3); MONO # 0.9 10*3/uL (0.1-1.0); MONO % 12.2 % (3.0-9.0); NEUT # 4.4 10*3/uL (2.3-7.9); NEUT % 57.7 % (47.0-73.0); PLATELET COUNT AUTOMATED 176 10*3/uL (130-400); RED BLOOD COUNT 3.89 10*6/uL (4.50-5.90); RED CELL DISTRI WIDTH 14.1 % (0-14.5); WHITE BLOOD COUNT 7.7 10*3/uL (4.8-10.8)
[2024-01-15 16:24] LABS: ACT PARTIAL THROMBO TIME 52.7 SECONDS (20.0-32.1)
[2024-01-15 16:36] LABS: BILIRUBIN Negative (Negative); BLOOD Negative (Negative); CLARITY Clear (Clear); COLOR Yellow (Yellow); GLUCOSE 1+ (Negative); KETONE Negative (Negative); NITRITE Negative (Negative); PH 5.5 (4.5-8.0); SPECIFIC GRAVITY 1.015 (1.001-1.030)
[2024-01-15 16:38] LABS: POTASSIUM 3.9 mmol/L (3.4-5.1); TOTAL PROTEIN 6.5 gm/dL (6.0-8.0)
[2024-01-15 16:45] LABS: RBC 0-2 rbc/hpf (0-2)
[2024-01-15 16:46] LABS: BACTERIA 1+; LEUKO ESTERASE Trace (Negative)
[2024-01-15] MEDS ORDERED: Lactated Ringer's Solution 1,000 ML IV SCH (18:00)
[2024-01-15] MEDS ORDERED: DEXTROSE 10 % IN WATER 250 ML IV PRN (18:25)
[2024-01-15] MEDS ORDERED: TEMAZEPAM 15 MG CAP PO PRN (18:25)
[2024-01-15] MEDS ORDERED: Magnesium Hydroxide 30 ML UDC PO PRN (18:25)
[2024-01-15] MEDS ORDERED: ACETAMINOPHEN 325 MG TAB PO PRN (18:25)
[2024-01-15] MEDS ORDERED: BISACODYL 10 MG SUPP R PRN (18:25)
[2024-01-15] MEDS ORDERED: ACETAMINOPHEN 650 MG SUPP R PRN (18:25)
[2024-01-15] MEDS ORDERED: BISACODYL 5 MG TAB PO PRN (18:25)
[2024-01-15] MEDS ORDERED: VANCOMYCIN/WATER FOR INJ (PEG) 300 ML IV SCH (19:00)
[2024-01-15 19:02] VITALS: BP 123/63
[2024-01-15 22:00] VITALS: BP 106/52
[2024-01-15] MEDS ORDERED: INSULIN LISPRO 1 UNIT/0.01 ML SQ SCH (22:00)
[2024-01-16] VITALS: BP 117/64
[2024-01-16 06:15] LABS: BASO % 0.5 % (0.0-1.0); EOS # 0.3 10*3/uL (0.0-0.4); EOS % 3.4 % (1.0-4.0); LYMPH # 2.3 10*3/uL (1.3-4.4); LYMPH % 27.2 % (27.0-41.0); MEAN CELL VOLUME 95.6 fl (80.0-94.0); MEAN CORPUSCULAR HGB 29.7 pg (27.0-31.0); MONO % 11.6 % (3.0-9.0); NEUT # 4.7 10*3/uL (2.3-7.9); NEUT % 56.8 % (47.0-73.0); PLATELET COUNT AUTOMATED 195 10*3/uL (130-400); RED BLOOD COUNT 4.08 10*6/uL (4.50-5.90); RED CELL DISTRI WIDTH 13.9 % (0-14.5); WHITE BLOOD COUNT 8.3 10*3/uL (4.8-10.8)
[2024-01-16 08:00] VITALS: BP 119/50
[2024-01-16 08:41] LABS: VITAMIN D, 25-HYDROXY 79.1 ng/mL (30-100)
[2024-01-16 08:50] LABS: FREE T4 1.28 ng/dl (0.89-1.76); POTASSIUM 3.6 mmol/L (3.4-5.1)
[2024-01-16 12:00] VITALS: BP 110/85
[2024-01-16 16:00] VITALS: BP 112/80
[2024-01-16 16:03] LABS: URINE AMPHETAMINES Negative (1000ng/ml); URINE BARBITURATES Negative (200ng/ml); URINE BENZODIAZEPINES Negative (200ng/ml); URINE CANNABINOIDS (THC) Negative (50ng/ml); URINE COCAINE Negative (300ng/ml); URINE METHADONE Negative (300ng/ml); URINE OPIATES Negative (300ng/ml); URINE PHENCYCLIDINE Negative (25ng/ml)
[2024-01-16] MEDS ORDERED: Lactated Ringer's Solution 1,000 ML IV SCH (18:00)
[2024-01-16 20:00] VITALS: BP 126/77
[2024-01-16] MEDS ORDERED: ISOSORBIDE DINITRATE 10 MG TAB PO SCH (22:00)
[2024-01-16] MEDS ORDERED: Insulin Glargine, Recombinan 1 UNIT/0.01 ML SC SCH (22:00)
[2024-01-16] MEDS ORDERED: CIMETIDINE 200 MG TAB PO SCH (22:00)
[2024-01-16] MEDS ORDERED: Duloxetine Hydrochloride 60 MG CAP PO SCH (22:00)
[2024-01-16] MEDS ORDERED: CARVEDILOL 6.25 MG TAB PO SCH (22:00)
[2024-01-16] MEDS ORDERED: ATORVASTATIN CALCIUM 40 MG TABLET PO SCH (22:00)
[2024-01-17] VITALS: BP 118/58
[2024-01-17 02:50] VITALS: BP 123/71
[2024-01-17 05:04] LABS: POTASSIUM 3.9 mmol/L (3.4-5.1)
[2024-01-17 06:15] LABS: BASO % 0.4 % (0.0-1.0); EOS # 0.3 10*3/uL (0.0-0.4); EOS % 3.5 % (1.0-4.0); HEMATOCRIT 38.1 % (42.0-52.0); LYMPH # 2.6 10*3/uL (1.3-4.4); LYMPH % 26.5 % (27.0-41.0); MEAN CORPUSCULAR HGB 29.9 pg (27.0-31.0); MEAN CORPUSCULAR HGB CONC 31.5 g/dl (33.0-37.0); MONO # 1.1 10*3/uL (0.1-1.0); MONO % 10.9 % (3.0-9.0); NEUT # 5.6 10*3/uL (2.3-7.9); NEUT % 58.2 % (47.0-73.0); PLATELET COUNT AUTOMATED 201 10*3/uL (130-400); RED BLOOD COUNT 4.01 10*6/uL (4.50-5.90); RED CELL DISTRI WIDTH 13.8 % (0-14.5); WHITE BLOOD COUNT 9.7 10*3/uL (4.8-10.8)
[2024-01-17 08:00] VITALS: BP 117/53
[2024-01-17] MEDS ORDERED: CYANOCOBALAMIN 500 MCG TAB PO SCH (10:00)
[2024-01-17] MEDS ORDERED: ASPIRIN ENTERIC COATED 81 MG TAB PO SCH (10:00)
[2024-01-17] MEDS ORDERED: Memantine Hydrochloride 10 MG TAB PO SCH (10:00)
[2024-01-17] MEDS ORDERED: Cholecalciferol 5,000 IU CAP (125 MCG) PO SCH (10:00)
[2024-01-17] MEDS ORDERED: Rivastigmine Tartrate 9.5 MG/24 HR PATCH T SCH (10:00)
[2024-01-17] MEDS ORDERED: FOLIC ACID 1 MG TAB PO SCH (10:00)
[2024-01-17 12:00] VITALS: BP 118/52
[2024-01-17] MEDS ORDERED: WARFARIN SODIUM4 MG PO (12:04)
[2024-01-17] MEDS ORDERED: MACROBID100 M1 PO (12:04)
[2024-01-17] MEDS ORDERED: CIMETIDINE200 MG PO (12:04)
[2024-01-18] MEDS ORDERED: BASAG SOL SQ (13:25)
[2024-01-18] MEDS ORDERED: CIPRO250 MG PO (13:25)
[2024-01-18] MEDS ORDERED: WARFARIN SODIUM 4 MG TAB PO SCH (18:00)
== END 2024-01-17 16:49 | disposition home health service (06) | DRG 682 ==
LOC: ED 15:36 → EDHOLD 18:03 → 4E 18:03
PROVIDERS: Emergency Medicine; Student in an Organized Health Care Education/Training Program; ADMIT Internal Medicine; ATTEND Internal Medicine
DX: N17.0 Acute kidney failure with tubular necrosis (principal); G93.41 Metabolic encephalopathy; N30.00 Acute cystitis without hematuria; E87.1 Hypo-osmolality and hyponatremia; I48.20 Chronic atrial fibrillation, unspecified; I50.42 Chronic combined systolic (congestive) and diastolic (congestive) heart failure; I13.0 Hypertensive heart and chronic kidney disease with heart failure and stage 1 through stage 4 chronic kidney disease, or unspecified chronic kidney disease; E44.0 Moderate protein-calorie malnutrition; F03.B4 Unspecified dementia, moderate, with anxiety; D50.9 Iron deficiency anemia, unspecified; F17.210 Nicotine dependence, cigarettes, uncomplicated; I25.10 Atherosclerotic heart disease of native coronary artery without angina pectoris; N18.30 Chronic kidney disease, stage 3 unspecified; E11.22 Type 2 diabetes mellitus with diabetic chronic kidney disease; E78.5 Hyperlipidemia, unspecified; D53.1 Other megaloblastic anemias, not elsewhere classified; E11.65 Type 2 diabetes mellitus with hyperglycemia; N18.32 Chronic kidney disease, stage 3b; Z86.16 Personal history of COVID-19; I25.2 Old myocardial infarction; Z88.8 Allergy status to other drugs, medicaments and biological substances; Z91.09 Other allergy status, other than to drugs and biological substances; Z79.899 Other long term (current) drug therapy; Z79.01 Long term (current) use of anticoagulants; Z79.2 Long term (current) use of antibiotics; Z95.2 Presence of prosthetic heart valve; Z68.30 Body mass index [BMI] 30.0-30.9, adult; Z95.0 Presence of cardiac pacemaker; Z95.1 Presence of aortocoronary bypass graft; Z82.0 Family history of epilepsy and other diseases of the nervous system; Z81.1 Family history of alcohol abuse and dependence; Z79.4 Long term (current) use of insulin

== ENCOUNTER 2024-01-18 12:52 | Emergency (ER) | payer MEDICARE ==
[~2024-01-18] VITALS: Wt 93.9 kg
[~2024-01-18 12:52] MED LIST changes: +ACETAMINOPHEN500 M5 PO; +BASAG SOL SQ; +CIMETIDINE200 MG PO; +CYMBALTA60 MG PO; +Coumadin3 MG PO; +LISINOPRIL5 MG PO; +MACROBID100 M1 PO; +TAGAMET HB200 M1 PO; +WARFARIN SODIUM4 MG PO
[2024-01-18 13:25] LABS: BILIRUBIN Negative (Negative); BLOOD Negative (Negative); CLARITY Clear (Clear); COLOR Yellow (Yellow); GLUCOSE 3+ (Negative); KETONE Negative (Negative); LEUKO ESTERASE Negative (Negative); NITRITE Negative (Negative); PH 5.5 (4.5-8.0); SPECIFIC GRAVITY 1.015 (1.001-1.030)
[2024-01-18] MEDS ORDERED: CIPRO250 MG PO (13:25)
[2024-01-18] MEDS ORDERED: BASAG SOL SQ (13:25)
[2024-01-18 13:26] LABS: BASO % 0.4 % (0.0-1.0); EOS # 0.3 10*3/uL (0.0-0.4); EOS % 3.3 % (1.0-4.0); HEMATOCRIT 35.4 % (42.0-52.0); LYMPH # 2.1 10*3/uL (1.3-4.4); LYMPH % 24.7 % (27.0-41.0); MEAN CELL VOLUME 94.7 fl (80.0-94.0); MEAN CORPUSCULAR HGB 30.2 pg (27.0-31.0); MEAN CORPUSCULAR HGB CONC 31.9 g/dl (33.0-37.0); MEAN PLATELET VOLUME 9.6 fl (9.6-12.3); MONO # 0.8 10*3/uL (0.1-1.0); MONO % 9.6 % (3.0-9.0); NEUT # 5.1 10*3/uL (2.3-7.9); NEUT % 61.4 % (47.0-73.0); PLATELET COUNT AUTOMATED 159 10*3/uL (130-400); RED BLOOD COUNT 3.74 10*6/uL (4.50-5.90); WHITE BLOOD COUNT 8.3 10*3/uL (4.8-10.8)
[2024-01-18 13:37] LABS: ACT PARTIAL THROMBO TIME 43.7 SECONDS (20.0-32.1)
[2024-01-18 14:03] LABS: BACTERIA TRACE; EPITHELIAL CELLS 0-2; RBC 0-2 rbc/hpf (0-2); WBC 0-2 wbc/hpf (0-5)
[2024-01-18 14:08] LABS: POTASSIUM 4.1 mmol/L (3.4-5.1); TOTAL PROTEIN 6.3 gm/dL (6.0-8.0)
== END 2024-01-18 16:10 ==
LOC: ED 12:52
PROVIDERS: Internal Medicine
DX: R53.83 Other fatigue (principal); R41.82 Altered mental status, unspecified; M25.561 Pain in right knee; M25.562 Pain in left knee; E11.22 Type 2 diabetes mellitus with diabetic chronic kidney disease; N18.9 Chronic kidney disease, unspecified; I48.91 Unspecified atrial fibrillation; I25.10 Atherosclerotic heart disease of native coronary artery without angina pectoris; R10.12 Left upper quadrant pain; R53.1 Weakness; Z91.041 Radiographic dye allergy status; Z79.82 Long term (current) use of aspirin; Z79.899 Other long term (current) drug therapy; Z79.01 Long term (current) use of anticoagulants; Z79.4 Long term (current) use of insulin; Z95.810 Presence of automatic (implantable) cardiac defibrillator; Z87.891 Personal history of nicotine dependence

== ENCOUNTER 2024-04-25 08:56 | Inpatient (IN) | payer MEDICARE ==
[~2024-04-25] VITALS: Ht 170.2 cm; Wt 83.6 kg
[~2024-04-25 08:56] MED LIST changes: +CIPRO250 MG PO; +MUCUS RELIEF E600 MG PO; +VIBRAMYCIN100 MG PO; +ZITHROMAX250 MG PO
[2024-04-25 09:01] VITALS: BP 149/82
[2024-04-25 09:31] LABS: BASO # 0.1 10*3/uL (0.0-0.1); BASO % 0.7 % (0.0-1.0); EOS # 0.5 10*3/uL (0.0-0.4); EOS % 5.9 % (1.0-4.0); HEMATOCRIT 41.8 % (42.0-52.0); MEAN CELL VOLUME 96.1 fl (80.0-94.0); MEAN CORPUSCULAR HGB 29.2 pg (27.0-31.0); MEAN CORPUSCULAR HGB CONC 30.4 g/dl (33.0-37.0); MEAN PLATELET VOLUME 10.5 fl (9.6-12.3); MONO # 0.9 10*3/uL (0.1-1.0); MONO % 12.2 % (3.0-9.0); NEUT # 4.7 10*3/uL (2.3-7.9); NEUT % 62.1 % (47.0-73.0); PLATELET COUNT AUTOMATED 160 10*3/uL (130-400); RED BLOOD COUNT 4.35 10*6/uL (4.50-5.90); WHITE BLOOD COUNT 7.6 10*3/uL (4.8-10.8)
[2024-04-25 09:42] LABS: ACT PARTIAL THROMBO TIME 39.3 SECONDS (20.0-32.1)
[2024-04-25 09:47] LABS: POTASSIUM 3.7 mmol/L (3.4-5.1)
[2024-04-25 10:01] LABS: ABG O2 SATURATION 87.5 % (94.0-98.0); ARTERIAL BLOOD GAS PH 7.446 (7.350-7.450)
[2024-04-25 10:02] LABS: ABG BASE EXCESS 3.5 mmol/L (-2.0-3.0)
[2024-04-25 10:03] LABS: ARTERIAL BLOOD GAS PO2 50.8 mmHg (83.0-108.0)
[2024-04-25] MEDS ORDERED: AZITHROMYCIN 250 MG TAB PO ONE (10:30)
[2024-04-25] MEDS ORDERED: FUROSEMIDE 40 MG/4 ML VIAL IV ONE (10:30)
[2024-04-25] MEDS ORDERED: Ceftriaxone Sodium 1 GM/10 ML SYR IV ONE (10:30)
[2024-04-25] MEDS ORDERED: Ondansetron Hydrochloride 4 MG/2 ML VIAL IV PRN (12:10)
[2024-04-25] MEDS ORDERED: BISACODYL 10 MG SUPP R PRN (12:10)
[2024-04-25] MEDS ORDERED: ACETAMINOPHEN 650 MG SUPP R PRN (12:10)
[2024-04-25] MEDS ORDERED: Albuterol Sulfate 2.5 MG/3 ML VIAL NEB SCH (12:20)
[2024-04-25 12:34] LABS: BILIRUBIN Negative (Negative); BLOOD Negative (Negative); CLARITY Clear (Clear); COLOR Yellow (Yellow); GLUCOSE Negative (Negative); KETONE Negative (Negative); LEUKO ESTERASE Negative (Negative); NITRITE Negative (Negative); SPECIFIC GRAVITY <= 1.005 (1.001-1.030); UROBILINOGEN 0.2 E.U./dl (0.0-1.0)
[2024-04-25 13:14] VITALS: BP 141/88
[2024-04-25 17:20] VITALS: BP 126/80
[2024-04-25] MEDS ORDERED: FUROSEMIDE 20 MG/2 ML VIAL IV SCH (18:00)
[2024-04-25 20:00] VITALS: BP 150/68
[2024-04-26] VITALS: BP 144/74
[2024-04-26] MEDS ORDERED: DEXTROSE 10 % IN WATER 250 ML IV PRN (02:35)
[2024-04-26] MEDS ORDERED: LASIX40 MG PO (02:47)
[2024-04-26] MEDS ORDERED: ASPIRIN ADULT L81 M2 PO (02:47)
[2024-04-26] MEDS ORDERED: LIPITOR40 MG PO (02:47)
[2024-04-26] MEDS ORDERED: WARFARIN SODIUM4 MG PO (02:48)
[2024-04-26 05:38] LABS: POTASSIUM 3.4 mmol/L (3.4-5.1); TOTAL PROTEIN 6.5 gm/dL (6.0-8.0)
[2024-04-26] MEDS ORDERED: NYSTATIN 15 GM BOT T SCH (06:00)
[2024-04-26 06:16] LABS: BASO # 0.1 10*3/uL (0.0-0.1); BASO % 0.7 % (0.0-1.0); EOS # 0.4 10*3/uL (0.0-0.4); EOS % 5.5 % (1.0-4.0); HEMATOCRIT 41.9 % (42.0-52.0); MEAN CELL VOLUME 95.4 fl (80.0-94.0); MEAN CORPUSCULAR HGB 29.2 pg (27.0-31.0); MEAN CORPUSCULAR HGB CONC 30.5 g/dl (33.0-37.0); MONO # 1.1 10*3/uL (0.1-1.0); MONO % 14.8 % (3.0-9.0); NEUT % 53.4 % (47.0-73.0); PLATELET COUNT AUTOMATED 157 10*3/uL (130-400); RED BLOOD COUNT 4.39 10*6/uL (4.50-5.90); RED CELL DISTRI WIDTH 15.1 % (0-14.5); WHITE BLOOD COUNT 7.5 10*3/uL (4.8-10.8)
[2024-04-26] MEDS ORDERED: INSULIN LISPRO 1 UNIT/0.01 ML SQ SCH (07:30)
[2024-04-26 08:00] VITALS: BP 130/60
[2024-04-26] MEDS ORDERED: Enoxaparin Sodium 30 MG/0.3 ML SYR SC SCH (10:00)
[2024-04-26] MEDS ORDERED: AZITHROMYCIN 250 ML IV SCH (10:00)
[2024-04-26] MEDS ORDERED: Enoxaparin Sodium 40 MG/0.4 ML SYR SC SCH (10:00)
[2024-04-26] MEDS ORDERED: Rivastigmine Tartrate 9.5 MG/24 HR PATCH T SCH (10:00)
[2024-04-26] MEDS ORDERED: Ceftriaxone Sodium 1 GM in SYRINGE INFUSION 10 ML IV SCH (11:00)
[2024-04-26 12:00] VITALS: BP 109/70
[2024-04-26 16:00] VITALS: BP 110/60
[2024-04-26 20:00] VITALS: BP 120/68; BP 170/68
[2024-04-26] MEDS ORDERED: Insulin Glargine, Recombinan 1 UNIT/0.01 ML SC SCH (22:00)
[2024-04-27] VITALS: BP 118/72
[2024-04-27 06:40] LABS: BASO # 0.1 10*3/uL (0.0-0.1); BASO % 0.7 % (0.0-1.0); EOS # 0.3 10*3/uL (0.0-0.4); EOS % 4.4 % (1.0-4.0); HEMATOCRIT 43.7 % (42.0-52.0); MEAN CELL VOLUME 94.8 fl (80.0-94.0); MEAN CORPUSCULAR HGB 29.1 pg (27.0-31.0); MEAN CORPUSCULAR HGB CONC 30.7 g/dl (33.0-37.0); MEAN PLATELET VOLUME 10.9 fl (9.6-12.3); MONO # 1.1 10*3/uL (0.1-1.0); MONO % 14.7 % (3.0-9.0); NEUT # 4.2 10*3/uL (2.3-7.9); PLATELET COUNT AUTOMATED 158 10*3/uL (130-400); RED BLOOD COUNT 4.61 10*6/uL (4.50-5.90); WHITE BLOOD COUNT 7.5 10*3/uL (4.8-10.8)
[2024-04-27 06:45] LABS: ACT PARTIAL THROMBO TIME 41.8 SECONDS (20.0-32.1)
[2024-04-27 06:52] LABS: POTASSIUM 3.1 mmol/L (3.4-5.1)
[2024-04-27 08:00] VITALS: BP 138/60
[2024-04-27] MEDS ORDERED: POTASSIUM CHLORIDE IN WATER 100 ML IV SCH (08:00)
[2024-04-27 12:00] VITALS: BP 121/69
[2024-04-27 16:00] VITALS: BP 128/97
[2024-04-27] MEDS ORDERED: WARFARIN SODIUM 4 MG TAB PO SCH (18:00)
[2024-04-27] MEDS ORDERED: ISOSORBIDE DINITRATE 10 MG TAB PO SCH (18:00)
[2024-04-27 20:00] VITALS: BP 100/48
[2024-04-27] MEDS ORDERED: Duloxetine Hydrochloride 60 MG CAP PO SCH (22:00)
[2024-04-27] MEDS ORDERED: CARVEDILOL 6.25 MG TAB PO SCH (22:00)
[2024-04-28] VITALS: BP 112/64
[2024-04-28 07:35] LABS: POTASSIUM 3.5 mmol/L (3.4-5.1)
[2024-04-28 09:00] VITALS: BP 128/71
[2024-04-28] MEDS ORDERED: ATORVASTATIN CALCIUM 40 MG TABLET PO SCH (10:00)
[2024-04-28] MEDS ORDERED: Memantine Hydrochloride 10 MG TAB PO SCH (10:00)
[2024-04-28] MEDS ORDERED: ASPIRIN ENTERIC COATED 81 MG TAB PO SCH (10:00)
[2024-04-28] MEDS ORDERED: POTASSIUM CHLORIDE 20 MEQ TAB PO SCH (10:00)
[2024-04-28 12:00] VITALS: BP 140/60
[2024-04-28] MEDS ORDERED: BARIUM SULFATE 98% 340 GM BOT PO ONE ×2 (13:13→13:25)
[2024-04-28 16:00] VITALS: BP 109/54
[2024-04-28 20:00] VITALS: BP 92/40
[2024-04-29] VITALS: BP 124/55
[2024-04-29 06:28] LABS: POTASSIUM 3.7 mmol/L (3.4-5.1)
[2024-04-29 08:00] VITALS: BP 138/64
[2024-04-29 11:57] VITALS: BP 129/91
[2024-04-29] MEDS ORDERED: DOXYCYCLINE HY100 M3 PO (13:15)
[2024-04-29] MEDS ORDERED: KLOR-CON M2020 ME1 PO (13:15)
[2024-04-29] MEDS ORDERED: Coumadin3 MG PO (13:20)
[2024-04-29] MEDS ORDERED: NYSTATIN 15 GM BOT T SCH (22:00)
== END 2024-04-29 15:43 | DRG 177 ==
LOC: ED 08:56 → 4E 10:48 → EDHOLD 10:48 → 4E 16:56
PROVIDERS: Emergency Medicine; Student in an Organized Health Care Education/Training Program; ADMIT Internal Medicine; ATTEND Internal Medicine
PROC: BD15YZZ Fluoroscopy of Upper GI using Other Contrast (ICD-10-PCS; principal; 2024-04-28)
DX: J69.0 Pneumonitis due to inhalation of food and vomit (principal); G93.41 Metabolic encephalopathy; J96.01 Acute respiratory failure with hypoxia; N17.0 Acute kidney failure with tubular necrosis; I21.4 Non-ST elevation (NSTEMI) myocardial infarction; I50.43 Acute on chronic combined systolic (congestive) and diastolic (congestive) heart failure; E87.20 Acidosis, unspecified; E44.0 Moderate protein-calorie malnutrition; I48.20 Chronic atrial fibrillation, unspecified; I13.0 Hypertensive heart and chronic kidney disease with heart failure and stage 1 through stage 4 chronic kidney disease, or unspecified chronic kidney disease; D53.9 Nutritional anemia, unspecified; E87.6 Hypokalemia; N18.31 Chronic kidney disease, stage 3a; Z66 Do not resuscitate; E11.22 Type 2 diabetes mellitus with diabetic chronic kidney disease; I25.10 Atherosclerotic heart disease of native coronary artery without angina pectoris; F03.90 Unspecified dementia, unspecified severity, without behavioral disturbance, psychotic disturbance, mood disturbance, and anxiety; E78.49 Other hyperlipidemia; E11.65 Type 2 diabetes mellitus with hyperglycemia; Z51.5 Encounter for palliative care; Z91.041 Radiographic dye allergy status; Z95.2 Presence of prosthetic heart valve; Z95.1 Presence of aortocoronary bypass graft; Z87.891 Personal history of nicotine dependence; I25.2 Old myocardial infarction; Z68.28 Body mass index [BMI] 28.0-28.9, adult

== ENCOUNTER 2024-05-15 06:12 | Emergency (ER) | payer MEDICARE ==
[~2024-05-15] VITALS: Ht 170.1 cm; Wt 80.5 kg
[~2024-05-15 06:12] MED LIST changes: +DOXYCYCLINE HY100 M3 PO; +LASIX40 MG PO; +LIPITOR40 MG PO
[2024-05-15] MEDS ORDERED: CIMETIDINE200 MG PO (06:31)
[2024-05-15] MEDS ORDERED: FIASP 100100 UNIT/1 SQ (06:32)
[2024-05-15 06:45] LABS: HEMATOCRIT 41.6 % (42.0-52.0); MEAN CELL VOLUME 94.8 fl (80.0-94.0); MEAN CORPUSCULAR HGB 28.2 pg (27.0-31.0); MEAN CORPUSCULAR HGB CONC 29.8 g/dl (33.0-37.0); MEAN PLATELET VOLUME 10.7 fl (9.6-12.3); PLATELET COUNT AUTOMATED 104 10*3/uL (130-400); RED BLOOD COUNT 4.39 10*6/uL (4.50-5.90); RED CELL DISTRI WIDTH 14.8 % (0-14.5); WHITE BLOOD COUNT 5.7 10*3/uL (4.8-10.8)
[2024-05-15 06:48] LABS: MANUAL DIFF REFLEX YES
[2024-05-15 06:49] LABS: BILIRUBIN Negative (Negative); BLOOD Negative (Negative); CLARITY Clear (Clear); COLOR Yellow (Yellow); GLUCOSE Trace (Negative); KETONE Negative (Negative); LEUKO ESTERASE Negative (Negative); NITRITE Negative (Negative); PH 5.5 (4.5-8.0); SPECIFIC GRAVITY 1.015 (1.001-1.030); UROBILINOGEN 0.2 E.U./dl (0.0-1.0)
[2024-05-15 06:58] LABS: URINE AMPHETAMINES Negative (1000ng/ml); URINE BARBITURATES Negative (200ng/ml); URINE BENZODIAZEPINES Negative (200ng/ml); URINE CANNABINOIDS (THC) Negative (50ng/ml); URINE COCAINE Negative (300ng/ml); URINE METHADONE Negative (300ng/ml); URINE OPIATES Negative (300ng/ml); URINE PHENCYCLIDINE Negative (25ng/ml)
[2024-05-15 07:08] LABS: ALKALINE PHOSPHATASE 129 U/L (46-116); BUN 17 mg/dl (9-23); CHLORIDE 103 mmol/L (98-107); POTASSIUM 4.8 mmol/L (3.4-5.1); SGPT/ALT 9 U/L (5-49); TOTAL PROTEIN 6.6 gm/dL (6.0-8.0)
[2024-05-15 07:12] LABS: ETHYL ALCOHOL < 3.0 mg/dl (<3)
[2024-05-15 07:15] LABS: BACTERIA 1+
[2024-05-15 07:32] LABS: BASOPHILS 1 % (0-1); OVALOCYTES FEW; PLATELET SUFFICIENCY LOW (NORMAL); TOTAL CELLS COUNTED 100 #CELLS
[2024-05-15] MEDS ORDERED: ENTRESTO 24 MG1 EACH PO (11:13)
[2024-05-15] MEDS ORDERED: JANTOVEN6 M1 PO (11:18)
[2024-05-15] MEDS ORDERED: MAGNESIUM-VIT1 EAC1 PO (11:19)
[2024-05-15] MEDS ORDERED: ANTIFUNGAL CRE141 GM T (11:22)
== END 2024-05-15 10:44 | disposition home or self-care (01) ==
LOC: ED 06:12
PROVIDERS: Internal Medicine
DX: F03.90 Unspecified dementia, unspecified severity, without behavioral disturbance, psychotic disturbance, mood disturbance, and anxiety (principal); F39 Unspecified mood [affective] disorder; I25.10 Atherosclerotic heart disease of native coronary artery without angina pectoris; E11.9 Type 2 diabetes mellitus without complications; Z79.4 Long term (current) use of insulin; I48.91 Unspecified atrial fibrillation; I11.0 Hypertensive heart disease with heart failure; I50.9 Heart failure, unspecified; D64.9 Anemia, unspecified; Z95.1 Presence of aortocoronary bypass graft; Z91.041 Radiographic dye allergy status; Z98.890 Other specified postprocedural states; Z79.899 Other long term (current) drug therapy

== ENCOUNTER 2024-05-15 10:41 | Inpatient (IN) | payer MEDICARE ==
[~2024-05-15] VITALS: Ht 180 cm; Wt 78.0 kg
[~2024-05-15 10:41] MED LIST changes: +FIASP 100100 UNIT/1 SQ
[2024-05-15 10:46] VITALS: BP 130/81
[2024-05-15] MEDS ORDERED: ENTRESTO 24 MG1 EACH PO (11:13)
[2024-05-15] MEDS ORDERED: JANTOVEN6 M1 PO (11:18)
[2024-05-15] MEDS ORDERED: MAGNESIUM-VIT1 EAC1 PO (11:19)
[2024-05-15] MEDS ORDERED: ANTIFUNGAL CRE141 GM T (11:22)
[2024-05-15] MEDS ORDERED: Ziprasidone Mesylate 20 MG VIAL IM PRN (11:35)
[2024-05-15] MEDS ORDERED: Water, Sterile 10 ML VIAL IM PRN (11:35)
[2024-05-15] MEDS ORDERED: LORazepam 1 MG TAB PO PRN (11:35)
[2024-05-15] MEDS ORDERED: ACETAMINOPHEN 325 MG TAB PO PRN (11:50)
[2024-05-15] MEDS ORDERED: MG-AL HYDROXIDE/SIMETICONE 30 ML UDC PO PRN (11:50)
[2024-05-15] MEDS ORDERED: Magnesium Hydroxide 30 ML UDC PO PRN (11:50)
[2024-05-15] MEDS ORDERED: DIVALPROEX (DR) 250 MG TAB PO SCH (13:00)
[2024-05-15] MEDS ORDERED: NYSTATIN 15 GM BOT T SCH (16:00)
[2024-05-15] MEDS ORDERED: Menthol/Zinc Oxide 4 GM THIN T SCH (18:00)
[2024-05-15] MEDS ORDERED: ISOSORBIDE DINITRATE 10 MG TAB PO SCH (18:00)
[2024-05-15] MEDS ORDERED: CARVEDILOL 6.25 MG TAB PO SCH (18:00)
[2024-05-15 18:46] VITALS: BP 151/67
[2024-05-15 20:00] VITALS: BP 136/86
[2024-05-15] MEDS ORDERED: SACUBITRIL/VALSARTAN 24 MG-26 MG TABLET PO SCH (21:00)
[2024-05-15] MEDS ORDERED: Mirtazapine 15 MG TAB PO SCH (21:00)
[2024-05-15] MEDS ORDERED: Memantine Hydrochloride 5 MG TAB PO SCH (21:00)
[2024-05-16] MEDS ORDERED: Ondansetron Hydrochloride 4 MG/2 ML VIAL IV PRN (06:20)
[2024-05-16] MEDS ORDERED: SODIUM CHLORIDE 0.9% 1,000 ML IV ONE (06:20)
[2024-05-16 06:56] LABS: BASO % 0.2 % (0.0-1.0); EOS # 0.1 10*3/uL (0.0-0.4); EOS % 1.8 % (1.0-4.0); HEMATOCRIT 44.3 % (42.0-52.0); MEAN CELL VOLUME 95.1 fl (80.0-94.0); MEAN CORPUSCULAR HGB 28.1 pg (27.0-31.0); MEAN CORPUSCULAR HGB CONC 29.6 g/dl (33.0-37.0); MONO # 0.4 10*3/uL (0.1-1.0); MONO % 5.5 % (3.0-9.0); NEUT # 5.4 10*3/uL (2.3-7.9); NEUT % 81.8 % (47.0-73.0); PLATELET COUNT AUTOMATED 103 10*3/uL (130-400); RED BLOOD COUNT 4.66 10*6/uL (4.50-5.90); RED CELL DISTRI WIDTH 14.8 % (0-14.5); WHITE BLOOD COUNT 6.6 10*3/uL (4.8-10.8)
[2024-05-16 07:26] LABS: POTASSIUM 4.8 mmol/L (3.4-5.1)
[2024-05-16 07:45] LABS: VITAMIN D, 25-HYDROXY 79.6 ng/mL (30-100)
[2024-05-16 08:00] VITALS: BP 140/88
[2024-05-16] MEDS ORDERED: RIVASTIGMINE 13.3 MG/24 HR TDM T SCH (09:00)
[2024-05-16] MEDS ORDERED: Memantine Hydrochloride 10 MG TAB PO SCH (09:00)
[2024-05-16] MEDS ORDERED: FUROSEMIDE 40 MG TAB PO SCH (11:10)
[2024-05-16] MEDS ORDERED: FUROSEMIDE 20 MG/2 ML VIAL IV ONE (11:20)
[2024-05-16 12:17] LABS: BILIRUBIN Negative (Negative); BLOOD Negative (Negative); CLARITY Clear (Clear); COLOR Yellow (Yellow); GLUCOSE 1+ (Negative); KETONE Trace (Negative); LEUKO ESTERASE Negative (Negative); NITRITE Negative (Negative); PH 5.5 (4.5-8.0); SPECIFIC GRAVITY 1.015 (1.001-1.030); UROBILINOGEN 0.2 E.U./dl (0.0-1.0)
[2024-05-16 12:31] LABS: EPITHELIAL CELLS 0-2; WBC 0-2 wbc/hpf (0-5)
[2024-05-16 12:32] LABS: BACTERIA TRACE; HYALINE CAST 0-2; RBC 0-2 rbc/hpf (0-2)
[2024-05-16] MEDS ORDERED: WARFARIN SODIUM 3 MG TAB PO SCH (18:00)
[2024-05-16 20:00] VITALS: BP 100/77
[2024-05-17 08:46] VITALS: BP 122/104
[2024-05-17] MEDS ORDERED: Doxycycline Hyclate 100 MG CAP PO SCH (09:00)
[2024-05-17] MEDS ORDERED: Loperamide Hydrochloride 2 MG CAP PO PRN (12:55)
[2024-05-17] MEDS ORDERED: Loperamide Hydrochloride 2 MG CAP PO ONE (12:55)
[2024-05-17 20:00] VITALS: BP 108/52
[2024-05-17] MEDS ORDERED: Memantine Hydrochloride 10 MG TAB PO SCH (21:00)
[2024-05-17] MEDS ORDERED: CLINDAMYCIN HCL 300 MG CAPSULE PO SCH (21:00)
[2024-05-18 07:02] LABS: POTASSIUM 3.6 mmol/L (3.4-5.1)
[2024-05-18 07:07] LABS: POTASSIUM 3.6 mmol/L (3.4-5.1); TOTAL PROTEIN 5.8 gm/dL (6.0-8.0)
[2024-05-18 08:00] VITALS: BP 60/40
[2024-05-18] MEDS ORDERED: SODIUM CHLORIDE 0.9% 1,000 ML IV ONE (08:00)
[2024-05-18 08:21] LABS: BASO % 0.1 % (0.0-1.0); EOS % 0.6 % (1.0-4.0); HEMATOCRIT 39.2 % (42.0-52.0); MEAN CELL VOLUME 94.9 fl (80.0-94.0); MEAN CORPUSCULAR HGB 28.3 pg (27.0-31.0); MEAN CORPUSCULAR HGB CONC 29.8 g/dl (33.0-37.0); MEAN PLATELET VOLUME 12.2 fl (9.6-12.3); MONO # 1.2 10*3/uL (0.1-1.0); MONO % 16.9 % (3.0-9.0); NEUT # 3.8 10*3/uL (2.3-7.9); NEUT % 52.7 % (47.0-73.0); PLATELET COUNT AUTOMATED 81 10*3/uL (130-400); RED BLOOD COUNT 4.13 10*6/uL (4.50-5.90); RED CELL DISTRI WIDTH 15.3 % (0-14.5); WHITE BLOOD COUNT 7.2 10*3/uL (4.8-10.8)
[2024-05-18 09:38] VITALS: BP 90/55
[2024-05-18] MEDS ORDERED: Menthol/Zinc Oxide 4 GM THIN T PRN (11:10)
[2024-05-18 20:00] VITALS: BP 113/58
[2024-05-18] MEDS ORDERED: GUAIFENESIN 600 MG TAB ER PO SCH (21:00)
[2024-05-19 06:56] LABS: BASO % 0.4 % (0.0-1.0); EOS # 0.1 10*3/uL (0.0-0.4); EOS % 2.4 % (1.0-4.0); MEAN CELL VOLUME 92.9 fl (80.0-94.0); MEAN CORPUSCULAR HGB 28.1 pg (27.0-31.0); MEAN CORPUSCULAR HGB CONC 30.3 g/dl (33.0-37.0); MEAN PLATELET VOLUME 11.9 fl (9.6-12.3); MONO # 0.7 10*3/uL (0.1-1.0); MONO % 13.5 % (3.0-9.0); NEUT # 2.2 10*3/uL (2.3-7.9); NEUT % 40.2 % (47.0-73.0); PLATELET COUNT AUTOMATED 81 10*3/uL (130-400); RED CELL DISTRI WIDTH 15.3 % (0-14.5); WHITE BLOOD COUNT 5.4 10*3/uL (4.8-10.8)
[2024-05-19 07:13] LABS: POTASSIUM 3.7 mmol/L (3.4-5.1)
[2024-05-19 08:00] VITALS: BP 124/94
[2024-05-19] MEDS ORDERED: EXELON1 EAC2 TD (10:24)
[2024-05-19] MEDS ORDERED: NAMENDA-5 PO (10:24)
[2024-05-19] MEDS ORDERED: REMERON15 M2 PO (10:24)
[2024-05-20] MEDS ORDERED: ATORVASTATIN CA40 M1 PO (07:11)
[2024-05-20] MEDS ORDERED: DULOXETINE HCL60 MG PO (07:15)
[2024-05-20] MEDS ORDERED: POTASSIUM CHLO20 ME4 PO (07:17)
== END 2024-05-19 11:04 | disposition short-term general hospital (02) | DRG 883 ==
LOC: 3N 10:41
PROVIDERS: Nurse Practitioner Women's Health; Student in an Organized Health Care Education/Training Program; ADMIT Psychiatry & Neurology Psychiatry; ATTEND Psychiatry & Neurology Psychiatry
PROC: GZ51ZZZ Individual Psychotherapy, Behavioral (ICD-10-PCS; principal; 2024-05-16)
DX: F63.81 Intermittent explosive disorder (principal); F05 Delirium due to known physiological condition; N18.9 Chronic kidney disease, unspecified; N17.0 Acute kidney failure with tubular necrosis; I50.42 Chronic combined systolic (congestive) and diastolic (congestive) heart failure; E44.0 Moderate protein-calorie malnutrition; F03.918 Unspecified dementia, unspecified severity, with other behavioral disturbance; I48.20 Chronic atrial fibrillation, unspecified; I13.0 Hypertensive heart and chronic kidney disease with heart failure and stage 1 through stage 4 chronic kidney disease, or unspecified chronic kidney disease; I25.10 Atherosclerotic heart disease of native coronary artery without angina pectoris; F39 Unspecified mood [affective] disorder; R79.1 Abnormal coagulation profile; Z66 Do not resuscitate; Z20.822 Contact with and (suspected) exposure to COVID-19; E78.5 Hyperlipidemia, unspecified; E11.22 Type 2 diabetes mellitus with diabetic chronic kidney disease; Z95.810 Presence of automatic (implantable) cardiac defibrillator; Z95.2 Presence of prosthetic heart valve; I25.2 Old myocardial infarction; Z87.891 Personal history of nicotine dependence; Z82.3 Family history of stroke; Z91.041 Radiographic dye allergy status; Z68.23 Body mass index [BMI] 23.0-23.9, adult

== ENCOUNTER 2024-05-19 10:51 | Inpatient (IN) | payer MEDICARE ==
[2024-05-18 20:00] VITALS: BP 142/60
[~2024-05-19] VITALS: Ht 180.3 cm; Wt 77.6 kg
[~2024-05-19 10:51] MED LIST changes: +ANTIFUNGAL CRE141 GM T; +ENTRESTO 24 MG1 EACH PO; +EXELON1 EAC2 TD; +JANTOVEN6 M1 PO; +MAGNESIUM-VIT1 EAC1 PO; +NAMENDA-5 PO; +REMERON15 M2 PO
[2024-05-19] MEDS ORDERED: ACETAMINOPHEN 650 MG SUPP R PRN (11:00)
[2024-05-19] MEDS ORDERED: MORPHINE Sulfate 2 MG/ML SYR IV PRN (11:00)
[2024-05-19] MEDS ORDERED: BISACODYL 10 MG SUPP R PRN (11:00)
[2024-05-19] MEDS ORDERED: Magnesium Hydroxide 30 ML UDC PO PRN (11:00)
[2024-05-19] MEDS ORDERED: TEMAZEPAM 15 MG CAP PO PRN (11:00)
[2024-05-19] MEDS ORDERED: Ondansetron Hydrochloride 4 MG/2 ML VIAL IV PRN (11:00)
[2024-05-19] MEDS ORDERED: BISACODYL 5 MG TAB PO PRN (11:00)
[2024-05-19] MEDS ORDERED: Acetaminophen/Hydrocodone 5 MG/325 MG TABLET PO PRN (11:00)
[2024-05-19] MEDS ORDERED: ACETAMINOPHEN 325 MG TAB PO PRN (11:00)
[2024-05-19 11:20] VITALS: BP 151/62
[2024-05-19 12:00] VITALS: BP 130/65
[2024-05-19] MEDS ORDERED: Albuterol Sulf/Ipratropium 3 ML VIAL NEB PRN (13:25)
[2024-05-19] MEDS ORDERED: AZITHROMYCIN 250 ML IV SCH (14:00)
[2024-05-19] MEDS ORDERED: Ceftriaxone Sodium 1 GM in SYRINGE INFUSION 10 ML IV SCH (15:00)
[2024-05-19 16:00] VITALS: BP 142/78
[2024-05-19] MEDS ORDERED: DEXTROSE 10 % IN WATER 250 ML IV PRN (16:10)
[2024-05-19] MEDS ORDERED: INSULIN LISPRO 1 UNIT/0.01 ML SQ SCH (16:30)
[2024-05-19 20:00] VITALS: BP 142/40
[2024-05-19] MEDS ORDERED: GUAIFENESIN 600 MG TAB ER PO SCH (22:00)
[2024-05-19] MEDS ORDERED: CARVEDILOL 6.25 MG TAB PO SCH (22:00)
[2024-05-20] VITALS: BP 108/50
[2024-05-20 06:40] LABS: BASO % 0.3 % (0.0-1.0); EOS # 0.1 10*3/uL (0.0-0.4); EOS % 1.8 % (1.0-4.0); HEMATOCRIT 40.6 % (42.0-52.0); MEAN CORPUSCULAR HGB 27.8 pg (27.0-31.0); MEAN CORPUSCULAR HGB CONC 29.6 g/dl (33.0-37.0); MEAN PLATELET VOLUME 11.8 fl (9.6-12.3); MONO # 0.7 10*3/uL (0.1-1.0); MONO % 12.4 % (3.0-9.0); NEUT # 2.7 10*3/uL (2.3-7.9); NEUT % 44.8 % (47.0-73.0); PLATELET COUNT AUTOMATED 70 10*3/uL (130-400); RED BLOOD COUNT 4.32 10*6/uL (4.50-5.90); RED CELL DISTRI WIDTH 15.2 % (0-14.5)
[2024-05-20] MEDS ORDERED: ATORVASTATIN CA40 M1 PO (07:11)
[2024-05-20] MEDS ORDERED: DULOXETINE HCL60 MG PO (07:15)
[2024-05-20] MEDS ORDERED: POTASSIUM CHLO20 ME4 PO (07:17)
[2024-05-20 08:00] VITALS: BP 119/47
[2024-05-20 09:04] LABS: POTASSIUM 3.6 mmol/L (3.4-5.1)
[2024-05-20] MEDS ORDERED: ATORVASTATIN CALCIUM 80 MG TAB PO SCH (10:00)
[2024-05-20] MEDS ORDERED: ASPIRIN ENTERIC COATED 81 MG TAB PO SCH (10:00)
[2024-05-20 12:00] VITALS: BP 111/65
[2024-05-20 16:00] VITALS: BP 124/60
[2024-05-20 17:24] LABS: FREE T4 0.98 ng/dl (0.89-1.76)
[2024-05-20] MEDS ORDERED: ATORVASTATIN CALCIUM 40 MG TABLET PO SCH (18:00)
[2024-05-20] MEDS ORDERED: ISOSORBIDE DINITRATE 10 MG TAB PO SCH (18:00)
[2024-05-20 18:33] LABS: VITAMIN D, 25-HYDROXY 75.5 ng/mL (30-100)
[2024-05-20 20:00] VITALS: BP 87/70
[2024-05-20] MEDS ORDERED: Memantine Hydrochloride 5 MG TAB PO SCH (21:00)
[2024-05-20] MEDS ORDERED: Mirtazapine 15 MG TAB PO SCH (21:00)
[2024-05-20] MEDS ORDERED: Miconazole Nitrate 2% 15 GM TUBE T SCH (21:00)
[2024-05-20] MEDS ORDERED: SACUBITRIL/VALSARTAN 24 MG-26 MG TABLET PO SCH (21:00)
[2024-05-20] MEDS ORDERED: CARVEDILOL 6.25 MG TAB PO SCH (22:00)
[2024-05-20] MEDS ORDERED: Duloxetine Hydrochloride 60 MG CAP PO SCH (22:00)
[2024-05-20 23:09] VITALS: BP 102/60
[2024-05-21] VITALS: BP 132/62
[2024-05-21 08:00] VITALS: BP 131/70
[2024-05-21] MEDS ORDERED: RIVASTIGMINE 13.3 MG/24 HR TDM T SCH (09:00)
[2024-05-21] MEDS ORDERED: POTASSIUM CHLORIDE 20 MEQ TAB PO SCH (10:00)
[2024-05-21] MEDS ORDERED: CIMETIDINE 200 MG TAB PO SCH (10:00)
[2024-05-21 12:03] VITALS: BP 90/30
[2024-05-21 16:00] VITALS: BP 110/46
[2024-05-21 20:00] VITALS: BP 141/96
[2024-05-22] VITALS: BP 123/50
[2024-05-22 06:28] LABS: BASO % 0.2 % (0.0-1.0); EOS # 0.2 10*3/uL (0.0-0.4); EOS % 3.7 % (1.0-4.0); HEMATOCRIT 40.5 % (42.0-52.0); MEAN CELL VOLUME 94.6 fl (80.0-94.0); MEAN CORPUSCULAR HGB 27.8 pg (27.0-31.0); MEAN CORPUSCULAR HGB CONC 29.4 g/dl (33.0-37.0); MEAN PLATELET VOLUME 12.3 fl (9.6-12.3); MONO # 0.6 10*3/uL (0.1-1.0); MONO % 9.4 % (3.0-9.0); NEUT # 3.1 10*3/uL (2.3-7.9); NEUT % 47.5 % (47.0-73.0); PLATELET COUNT AUTOMATED 65 10*3/uL (130-400); RED BLOOD COUNT 4.28 10*6/uL (4.50-5.90); RED CELL DISTRI WIDTH 15.4 % (0-14.5); WHITE BLOOD COUNT 6.5 10*3/uL (4.8-10.8)
[2024-05-22 06:45] LABS: POTASSIUM 3.7 mmol/L (3.4-5.1)
[2024-05-22 08:00] VITALS: BP 102/66
[2024-05-22 12:00] VITALS: BP 110/66
[2024-05-22 16:00] VITALS: BP 99/52
[2024-05-22 20:00] VITALS: BP 114/63
[2024-05-23] VITALS: BP 115/64
[2024-05-23 08:00] VITALS: BP 115/53
[2024-05-23] MEDS ORDERED: FUROSEMIDE 40 MG/4 ML VIAL IV ONE (08:20)
[2024-05-23] MEDS ORDERED: FUROSEMIDE 40 MG/4 ML VIAL ONE (09:19)
[2024-05-23 12:00] VITALS: BP 99/66
[2024-05-23 16:00] VITALS: BP 113/66
[2024-05-23 20:00] VITALS: BP 106/62
[2024-05-24 06:01] LABS: BUN 15 mg/dl (9-23); CHLORIDE 106 mmol/L (98-107)
[2024-05-24 06:09] LABS: BASO % 0.2 % (0.0-1.0); EOS # 0.2 10*3/uL (0.0-0.4); EOS % 2.8 % (1.0-4.0); HEMATOCRIT 42.6 % (42.0-52.0); MEAN CORPUSCULAR HGB 27.7 pg (27.0-31.0); MEAN CORPUSCULAR HGB CONC 30.3 g/dl (33.0-37.0); MEAN PLATELET VOLUME 11.5 fl (9.6-12.3); MONO # 0.7 10*3/uL (0.1-1.0); MONO % 11.1 % (3.0-9.0); NEUT % 46.6 % (47.0-73.0); RED BLOOD COUNT 4.66 10*6/uL (4.50-5.90); RED CELL DISTRI WIDTH 15.2 % (0-14.5); WHITE BLOOD COUNT 6.5 10*3/uL (4.8-10.8)
[2024-05-24 07:35] LABS: MEAN CELL VOLUME 91.4 fl (80.0-94.0); PLATELET COUNT AUTOMATED 109 10*3/uL (130-400)
[2024-05-24] MEDS ORDERED: POTASSIUM CHLORIDE 20 MEQ TAB PO ONE (07:40)
[2024-05-24] MEDS ORDERED: MUCUS RELIEF E600 MG PO (07:41)
[2024-05-24] MEDS ORDERED: POTASSIUM CHLO20 ME4 PO (07:41)
[2024-05-24 08:00] VITALS: BP 129/79
[2024-05-24] MEDS ORDERED: FUROSEMIDE 40 MG TAB PO SCH (10:00)
[2024-05-24] MEDS ORDERED: ELIQUIS2.5 M1 PO (10:59)
[2024-05-24 12:00] VITALS: BP 116/82
== END 2024-05-24 15:52 | disposition home health service (06) | DRG 177 ==
LOC: 4E 10:51 → ICCU 10:51 → 4E 18:27 → ICCU 19:04 → 4E 23:53
PROVIDERS: Registered Nurse; Student in an Organized Health Care Education/Training Program; ADMIT Student in an Organized Health Care Education/Training Program; ATTEND Student in an Organized Health Care Education/Training Program
DX: J15.69 Pneumonia due to other Gram-negative bacteria (principal); E43 Unspecified severe protein-calorie malnutrition; I21.A1 Myocardial infarction type 2; I13.0 Hypertensive heart and chronic kidney disease with heart failure and stage 1 through stage 4 chronic kidney disease, or unspecified chronic kidney disease; I48.20 Chronic atrial fibrillation, unspecified; I50.42 Chronic combined systolic (congestive) and diastolic (congestive) heart failure; J69.0 Pneumonitis due to inhalation of food and vomit; D64.9 Anemia, unspecified; N18.32 Chronic kidney disease, stage 3b; E11.22 Type 2 diabetes mellitus with diabetic chronic kidney disease; Z66 Do not resuscitate; I25.10 Atherosclerotic heart disease of native coronary artery without angina pectoris; F39 Unspecified mood [affective] disorder; E11.65 Type 2 diabetes mellitus with hyperglycemia; D69.6 Thrombocytopenia, unspecified; F17.210 Nicotine dependence, cigarettes, uncomplicated; F03.90 Unspecified dementia, unspecified severity, without behavioral disturbance, psychotic disturbance, mood disturbance, and anxiety; E78.5 Hyperlipidemia, unspecified; Z87.01 Personal history of pneumonia (recurrent); Z79.01 Long term (current) use of anticoagulants; Z95.2 Presence of prosthetic heart valve; Z95.0 Presence of cardiac pacemaker; Z82.0 Family history of epilepsy and other diseases of the nervous system; Z81.1 Family history of alcohol abuse and dependence; Z68.28 Body mass index [BMI] 28.0-28.9, adult

== ENCOUNTER 2024-06-13 21:18 | Emergency (ER) | payer MEDICARE ==
[~2024-06-13] VITALS: Ht 170.1 cm; Wt 84.0 kg
[~2024-06-13 21:18] MED LIST changes: +DULOXETINE HCL60 MG PO; +POTASSIUM CHLO20 ME4 PO
[2024-06-13 21:50] LABS: BASO % 0.4 % (0.0-1.0); EOS # 0.3 10*3/uL (0.0-0.4); EOS % 4.6 % (1.0-4.0); HEMATOCRIT 40.2 % (42.0-52.0); MEAN CELL VOLUME 93.5 fl (80.0-94.0); MEAN CORPUSCULAR HGB 27.9 pg (27.0-31.0); MEAN CORPUSCULAR HGB CONC 29.9 g/dl (33.0-37.0); MEAN PLATELET VOLUME 10.6 fl (9.6-12.3); MONO # 0.8 10*3/uL (0.1-1.0); MONO % 11.2 % (3.0-9.0); NEUT # 2.6 10*3/uL (2.3-7.9); NEUT % 37.9 % (47.0-73.0); PLATELET COUNT AUTOMATED 125 10*3/uL (130-400); RED CELL DISTRI WIDTH 16.2 % (0-14.5)
[2024-06-13 22:05] LABS: BILIRUBIN Negative (Negative); BLOOD Negative (Negative); CLARITY Clear (Clear); COLOR Yellow (Yellow); GLUCOSE Negative (Negative); KETONE Negative (Negative); LEUKO ESTERASE Trace (Negative); NITRITE Negative (Negative); UROBILINOGEN 0.2 E.U./dl (0.0-1.0)
[2024-06-13 22:05] LABS: POTASSIUM 4.5 mmol/L (3.4-5.1)
[2024-06-13 22:36] LABS: BACTERIA 1+; RBC 0-2 rbc/hpf (0-2)
[2024-06-13] MEDS ORDERED: CIPRO500 MG PO (23:10)
== END 2024-06-13 23:45 | disposition home or self-care (01) ==
LOC: ED 21:18
PROVIDERS: Internal Medicine
DX: R41.82 Altered mental status, unspecified (principal); N39.0 Urinary tract infection, site not specified; I25.10 Atherosclerotic heart disease of native coronary artery without angina pectoris; E11.9 Type 2 diabetes mellitus without complications; F03.90 Unspecified dementia, unspecified severity, without behavioral disturbance, psychotic disturbance, mood disturbance, and anxiety; I11.0 Hypertensive heart disease with heart failure; I50.9 Heart failure, unspecified; I48.91 Unspecified atrial fibrillation; D64.9 Anemia, unspecified; Z87.891 Personal history of nicotine dependence; Z91.041 Radiographic dye allergy status; Z95.1 Presence of aortocoronary bypass graft; Z98.890 Other specified postprocedural states

== ENCOUNTER 2025-02-17 05:10 | Emergency (ER) | payer OTHER ==
[~2025-02-17] VITALS: Wt 89.4 kg
[~2025-02-17 05:10] MED LIST changes: +AMOXICILLIN500 M3 PO; +DIVALPROEX SOD125 MG PO; +INSULIN AS100 UNIT/3 SQ; +INSULIN GL100 UNIT/2 SQ
[2025-02-17 05:28] LABS: BILIRUBIN Negative (Negative); BLOOD Negative (Negative); CLARITY Clear (Clear); COLOR Yellow (Yellow); KETONE Negative (Negative); LEUKO ESTERASE Negative (Negative); NITRITE Negative (Negative); PH 6.5 (4.5-8.0); SPECIFIC GRAVITY 1.015 (1.001-1.030); UROBILINOGEN 1.0 E.U./dl (0.0-1.0)
[2025-02-17 05:34] LABS: WBC 0-2 wbc/hpf (0-5)
[2025-02-17 05:48] LABS: BUN 33.0 mg/dl (9-23)
[2025-02-17 06:12] LABS: BASO # 0.1 10*3/uL (0.0-0.1); BASO % 0.7 % (0.0-1.0); EOS # 0.4 10*3/uL (0.0-0.4); EOS % 5.4 % (1.0-4.0); MEAN CELL VOLUME 89.1 fl (80.0-94.0); MEAN CORPUSCULAR HGB 26.7 pg (27.0-31.0); MEAN PLATELET VOLUME 11.2 fl (9.6-12.3); MONO # 0.9 10*3/uL (0.1-1.0); MONO % 11.7 % (3.0-9.0); NEUT # 3.2 10*3/uL (2.3-7.9); NEUT % 44.4 % (47.0-73.0); NUCLEATED RED BLOOD CELL 0.0 % (0.0-0.0); NUCLEATED RED BLOOD CELL 0.0 10*3/uL (0.0-0.0); PLATELET COUNT AUTOMATED 134 10*3/uL (130-400); RED CELL DISTRI WIDTH 18.3 % (0-14.5)
== END 2025-02-17 06:41 | disposition home or self-care (01) ==
LOC: ED 05:10
PROVIDERS: Internal Medicine
DX: R45.6 Violent behavior (principal); Z91.041 Radiographic dye allergy status; Z79.82 Long term (current) use of aspirin; Z79.899 Other long term (current) drug therapy; Z79.4 Long term (current) use of insulin; Z95.810 Presence of automatic (implantable) cardiac defibrillator; Z87.891 Personal history of nicotine dependence